=== PATIENT | female | born 1945 | race Caucasian/White ===

== ENCOUNTER 2017-03-12 06:07 | Day surgery (SDC) | payer MEDICARE, OTHER ==
[2017-03-12] MEDS ORDERED: CYCLOPENTOLATE 1% OPHTH DROPS 2 ML OPTH ONE (06:40)
[2017-03-12] MEDS ORDERED: TROPICAMIDE 1% OPHTH 2 ML DROPS OPTH ONE (06:40)
[2017-03-12] MEDS ORDERED: KETOROLAC 0.45% OPHTH DROPS OPTH ONE (06:40)
[2017-03-12] MEDS ORDERED: LACTATED RINGERS 500 ML IV ONE (06:50)
[2017-03-12] MEDS ORDERED: PROPARACAINE 0.5% OPHTH DROPS 15 ML OPTH ONE (07:33)
[2017-03-12] MEDS ORDERED: EPINEPHrine 1 MG/ML AMP IO ONE (07:50)
[2017-03-12] MEDS ORDERED: MIDAZOLAM 2 MG/2 ML VIAL IVP ONE (07:50)
[2017-03-12] MEDS ORDERED: BRIMONIDINE 0.2% OPHTH DROPS 5 ML OPTH ONE (07:51)
[2017-03-12] MEDS ORDERED: BSS/LIDOCAINE/EPINEPHRINE 1 ML SYRINGE IO ONE ×2 (07:51)
[2017-03-12] MEDS ORDERED: CHONDR SULF/HYALURONATE SYRINGE IO ONE (07:52)
[2017-03-12] MEDS ORDERED: levoFLOXacin 0.5% OPHTH DROPS 5 ML OPTH ONE (07:52)
[2017-03-12] MEDS ORDERED: TETRACAINE 0.5% OPHTH DROPS 4 ML RIGHTEYE ONE (07:52)
[2017-03-12] MEDS ORDERED: NEOMYCIN/POLYMYX/DEXAMETH OPHTH OINT OPTH ONE (07:52)
== END 2017-03-12 06:08 | disposition home or self-care (01) ==
PROC: 08RJ3JZ Replacement of Right Lens with Synthetic Substitute, Percutaneous Approach (ICD-10-PCS; principal; 2017-03-12 07:30)
DX: H26.9 Unspecified cataract (principal); G47.33 Obstructive sleep apnea (adult) (pediatric); J45.909 Unspecified asthma, uncomplicated; E78.00 Pure hypercholesterolemia, unspecified; I10 Essential (primary) hypertension
CPT/HCPCS: 66984; V2632; V2787

== ENCOUNTER 2017-04-02 06:07 | Day surgery (SDC) | payer MEDICARE, OTHER ==
[2017-04-02] MEDS ORDERED: LACTATED RINGERS 500 ML IV ONE (06:33)
[2017-04-02] MEDS ORDERED: TROPICAMIDE 1% OPHTH 2 ML DROPS OPTH ONE (06:45)
[2017-04-02] MEDS ORDERED: KETOROLAC 0.45% OPHTH DROPS OPTH ONE (06:45)
[2017-04-02] MEDS ORDERED: CYCLOPENTOLATE 1% OPHTH DROPS 2 ML OPTH ONE (06:45)
[2017-04-02] MEDS ORDERED: PROPARACAINE 0.5% OPHTH DROPS 15 ML OPTH ONE (07:52)
[2017-04-02] MEDS ORDERED: BRIMONIDINE 0.2% OPHTH DROPS 5 ML OPTH ONE (07:53)
[2017-04-02] MEDS ORDERED: EPINEPHrine 1 MG/ML AMP IO ONE (07:53)
[2017-04-02] MEDS ORDERED: levoFLOXacin 0.5% OPHTH DROPS 5 ML OPTH ONE (07:53)
[2017-04-02] MEDS ORDERED: NEOMYCIN/POLYMYX/DEXAMETH OPHTH OINT OPTH ONE (07:53)
[2017-04-02] MEDS ORDERED: CHONDR SULF/HYALURONATE SYRINGE IO ONE (07:53)
[2017-04-02] MEDS ORDERED: BSS/LIDOCAINE/EPINEPHRINE 1 ML SYRINGE IO ONE ×2 (07:53)
[2017-04-02] MEDS ORDERED: MIDAZOLAM 2 MG/2 ML VIAL IVP ONE (07:55)
[2017-04-02 08:45] VITALS: BP 133/67
--- NOTE | 2017-04-03 03:17 | OPERATIVE REPORT ---
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 SURGICAL PROCEDURE: Phacoemulsification cataract extraction with intraocular lens implant of the right eye. SURGEON: Dg Lawson MD ANESTHESIA: Topical 0.5% tetracaine with monitored sedation and intracameral Shugarcaine given at the beginning of the surgical procedure. COMPLICATIONS: None. DESCRIPTION OF SURGICAL PROCEDURE: The patient was brought into the operating room and the eye was anesthetized. The patient sat up in the gurney and an axis marker was used to identify the axis of orientation of the toric lens. The patient was prepped and draped in the usual ophthalmic manner. Adhesive plastic drape was placed over the eye, a slit was made in the drape and a lid speculum was used to hold the eyelids and expose the eye. A marking pen was then used to identify the indentations to further identify the axis of orientation from the corneal marker and then a 15-degree blade was used to make a self-sealing stab wound 2 o'clock hours to the left of the planned clear corneal incision. Shugarcaine was then placed into the anterior chamber to further dilate the pupil and the eye was then filled with viscoelastic the crescent blade was used to make the initial vertical component of the self-sealing clear corneal incision. The wound was completed with a 2.75 keratome. A circular tear capsulorrhexis was performed. The nucleus was hydrodissected and phacoemulsification of the cataract was performed with no complications. I/A unit was used to clean up the cortical material. The posterior capsule was polished crystal clear with the Tristian capsule polisher. Again, the I/A unit was used to remove any loose particulate matter after polishing the capsule. The patient then had viscoelastic into the capsular bag. The toric lens was inserted in the capsular bag, but left shy of correct orientation to be rotated in a clockwise manner. Viscoelastic was then removed from the eye and the toric lens was nudged into perfect position with the axis of orientation. BSS was then used to fill the anterior chamber. The wounds were examined and found to be self-sealing and water tight. The lid speculum was removed. A drop of bromonidine was placed on the eye, Maxitrol ointment was placed on the eye,the eye was patched and shielded and the patient was taken into the recovery room in good condition. JOB #: [id number] EXT JOB #:[id number] MTDD
== END 2017-04-02 06:08 | disposition home or self-care (01) ==
LOC: SDS 06:07
PROVIDERS: ATTEND Specialist
PROC: 08RK3JZ Replacement of Left Lens with Synthetic Substitute, Percutaneous Approach (ICD-10-PCS; principal; 2017-04-02 07:30)
DX: H25.12 Age-related nuclear cataract, left eye (principal); I10 Essential (primary) hypertension; J45.909 Unspecified asthma, uncomplicated; G47.33 Obstructive sleep apnea (adult) (pediatric); H18.51 Endothelial corneal dystrophy; Z87.891 Personal history of nicotine dependence
CPT/HCPCS: 66984; V2632; V2787

== ENCOUNTER 2017-07-18 11:47 | Outpatient (CLI) | payer MEDICARE, OTHER ==
--- NOTE | 2017-07-18 13:27 | XRAY Report ---
TWO-VIEW CHEST: 07/18/2017 CLINICAL INDICATION: Anterior chest pain. COMPARISON: 05/10/2014 FINDINGS: Frontal and lateral views of the chest demonstrate a normal cardiac silhouette. The lungs are clear. No effusion or pneumothorax is present. No sternal fracture is seen on the lateral view . IMPRESSION: NORMAL CHEST, UNCHANGED. JOB #: [id number] EXT JOB #:[id number]
== END 2017-07-18 11:48 | disposition home or self-care (01) ==
LOC: DI.N 11:47
PROVIDERS: ATTEND Physician Assistant
DX: R07.89 Other chest pain (principal)
CPT/HCPCS: 71020

== ENCOUNTER 2017-08-04 10:03 | Emergency (ER) | payer MEDICARE, OTHER ==
[2017-08-04] MEDS ORDERED: MUPIROCIN 2% OINT 1 GM TOP STA (13:13)
--- NOTE | 2017-08-04 13:13 | ED Physician Documentation ---
PD HPI WOUND RECHECK - Stated complaint Stated Complaint: POST OP WOUND CHECK - Chief complaint Chief Complaint: Wound - Histroy obtained from History obtained from: Patient - History of Present Illness Location: Abdomen Timing - onset: How many days ago (few) Associated symptoms: Redness, Drainage (she had pain pump placed at and is doing okay except for 1-2 days of mild redness and drainage superficially at lower abd site. No pain nor redness in area of the pump itself.) Similar symptoms before: Has not had sx before Recently seen: Surgery (outpt surgery of placement pain med pump) Review of Systems Constitutional: denies: Fever, Chills GI: denies: Nausea, Vomiting, Diarrhea PD PAST MEDICAL HISTORY - Past Medical History Past Medical History: Yes Cardiovascular: Hypertension, High cholesterol, Other Respiratory: Asthma, Sleep apnea, CPAP use Endocrine/Autoimmune: HyPOthyroidism GI: Pancreatitis : Kidney stones HEENT: Other Psych: None Musculoskeletal: Osteoarthritis, Other Derm: None - Past Surgical History Past Surgical History: Yes 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, 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, 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, Breast reduction - Present Medications Home Medications: Ambulatory Orders Medication Instructions Recorded Confirmed Atenolol 75 mg PO DAILY 06/28/13 08/04/17 Atorvastatin Calcium [Lipitor] 40 mg PO HS 06/28/13 08/04/17 Fluticasone [Flonase] 1 sprays TRAVIS BID 06/28/13 08/04/17 Furosemide [Lasix] 20 mg PO BID 06/28/13 08/04/17 Lansoprazole [Prevacid] 30 mg PO BID 06/28/13 08/04/17 Lipase/Protease/Amylase [Zenpep Dr 4 tab PO AC 06/28/13 08/04/17 10,000 Units Capsule] Mometasone 220 Mcg [Asmanex 220 220 mcg IH BID 06/28/13 08/04/17 Mcg] Montelukast [Singulair] 10 mg PO QPM 06/28/13 08/04/17 Ondansetron [Ondansetron Odt] 4 mg PO HS 06/28/13 08/04/17 Oxycodone HCl/Acetaminophen 0.5 each PO Q4H PRN 06/28/13 08/04/17 [Percocet 5-325 mg Tablet] Salmeterol [Serevent] 1 puffs INH BID 06/28/13 08/04/17 Spironolactone 50 mg PO DAILY 06/28/13 08/04/17 Levothyroxine [Synthroid] 112 mcg PO DAILY 04/03/15 08/04/17 Cetirizine [ZyrTEC] 10 mg PO DAILY 08/04/17 08/04/17 Doxycycline Hyclate 100 mg PO BID #14 tablet 08/04/17 Mupirocin 1 applic TP TID #15 oint...g. 08/04/17 - Allergies Allergies/Adverse Reactions: Allergies Allergy/AdvReac Type Severity Reaction Status Date / Time desipramine Allergy fuzzy head Verified 08/04/17 13:00 levofloxacin [From Levaquin] Allergy Rash Verified 08/04/17 13:00 lisinopril [From Zestril] Allergy unknown Verified 08/04/17 13:00 nortriptyline [Nortriptyline] Allergy fuzzy head Verified 08/04/17 13:00 tramadol HCl * [From Ultram] Allergy fuzzy head Verified 08/04/17 13:00 tape adhesive Allergy Itching Uncoded 08/04/17 13:00 - Social History Does the pt smoke?: No Smoking Status: Never smoker Does the pt drink ETOH?: Yes Does the pt have substance abuse?: No - Immunizations Immunizations are current?: Yes PD ED PE NORMAL - Vitals Vital signs reviewed: Yes - General General: Alert and oriented X 3, No acute distress, Well developed/nourished - Abdomen Abdomen: Normal bowel sounds, Soft, Non distended, Other (lower abd with surgical wound closed except for about 1 cm area of partial thickness dehiscence and mild redness with clear to white superficial exudate. No underlying induration, tenderness nor fullness. The pump itself is lateral to that wound and there is not any redness nor tenderness overlying the pump pouch area. ) - Derm Derm: Normal color, Warm and dry Results - Vitals Vitals: Oxygen O2 Source Room air PD MEDICAL DECISION MAKING - ED course Complexity details: considered differential (just superficial dehiscence and mild redness. No underlying tenderness nor fullness. ), d/w patient Departure - Departure Disposition: 01 Home, Self Care Clinical Impression: Superficial postoperative wound infection Qualifiers: Encounter type: initial encounter Qualified Code(s): T81.4XXA - Infection following a procedure, initial encounter Condition: Stable Record reviewed to determine appropriate education?: Yes Instructions: ED Staph Infec Abx Tx Only Follow-Up: Rm Ochoa MD [Primary Care Provider] - Prescriptions: Doxycycline Hyclate 100 mg PO BID #14 tablet Mupirocin 1 applic TP TID #15 oint...g. Comments: Cleanse the wound 2-3 times a day and apply mupirocin antibiotic ointment. Most wound infections like this are caused by staff aureus and so we will change antibiotic to doxycycline to target that better. Recheck if not better over the next 3-5 days and sooner if worsens. Discharge Date/Time: 08/04/17 13:35
[2017-08-04 13:23] VITALS: BP 147/72
[2017-08-04] MEDS ORDERED: MUPIROCIN 2% OINT 1 GM ONE (13:23)
== END 2017-08-04 13:35 | disposition home or self-care (01) ==
LOC: ED 10:03
DX: T81.4XXA Infection following a procedure, initial encounter (principal); T81.31XA Disruption of external operation (surgical) wound, not elsewhere classified, initial encounter; I10 Essential (primary) hypertension; E03.9 Hypothyroidism, unspecified
CPT/HCPCS: 99283; A9270

== ENCOUNTER 2017-10-20 10:07 | Outpatient (CLI) | payer MEDICARE, OTHER ==
--- NOTE | 2017-10-21 11:37 | XRAY Report ---
RIGHT HAND: 10/20/2017 HISTORY: Pain. COMPARISON: 06/13/2015 Advanced degenerative change at the index DIP joint is similar to previous with narrowing, subchondral sclerosis and spurring. There is slight radial subluxation of the distal phalanx. Lesser degrees of degenerative change are seen at the other interphalangeal joints of the fingers and thumb as well as at the first metacarpocarpal articulation. These other degenerative changes appear to have progressed since 2014, particularly at the first metacarpocarpal articulation. IMPRESSION: DEGENERATIVE CHANGE RIGHT HAND, MOST MARKED INDEX DIP JOINT AND FIRST METACARPALCARPAL ARTICULATION WITHOUT SUPERIMPOSED ACUTE FINDINGS. JOB #: [id number] EXT JOB #: [id number] [facility]efer[facility]
== END 2017-10-20 10:08 | disposition home or self-care (01) ==
LOC: DI.N 10:07
PROVIDERS: ATTEND Physician Assistant
DX: M18.11 Unilateral primary osteoarthritis of first carpometacarpal joint, right hand (principal); M19.041 Primary osteoarthritis, right hand

== ENCOUNTER 2017-11-18 14:43 | Outpatient (CLI) | payer MEDICARE, OTHER | END 2017-11-18 14:44 | disposition home or self-care (01) | LOC: SC 14:43 | PROVIDERS: ATTEND Nurse Practitioner Family | DX: G47.33 Obstructive sleep apnea (adult) (pediatric) (principal) | CPT/HCPCS: 99214; G0463; 99212 ==

== ENCOUNTER 2018-03-26 09:58 | Outpatient (CLI) | payer MEDICARE, OTHER ==
--- NOTE | 2018-03-29 18:07 | DEXA Report ---
DEXA SCAN: 03/26/2018 INDICATION: Bone mineral density screening. TECHNIQUE: Dual energy x-ray absorptiometry (DXA) was performed on a [employer] system. Regions measured are the AP spine, femoral neck, and, if needed, forearm. COMPARISON: None. In accordance with the International Society for Clinical Densitometry (ISCD) guidelines, data from previous exams may be reanalyzed using current recommendations and techniques. This is done to allow a more accurate basis for comparison with the current study. FINDINGS The data for the lumbar spine is as follows: REGION BMD (g/cm/cm) T-SCORE Z-SCORE L1 1.146 0.1 1.6 L2 1.256 0.5 2.0 L3 1.309 0.9 2.4 L4 1.254 0.4 2.0 L1-L4 1.246 0.5 2.1 L2-L4 1.275 0.6 2.1 NOTE: All evaluable vertebrae are used for classification. The data for the hip is as follows: REGION BMD (g/cm/cm) T-SCORE Z-SCORE Neck 1.006 -0.2 1.4 TOTAL 1.058 0.4 1.8 NOTE: The femoral neck or total proximal femur, whichever is lowest, is used for classification. Spine bone mineral density 1.246 grams/cm2. T-score 0.5. Z-score 2.1. WHO classification normal. Femoral neck bone mineral density 1.006 grams/cm2. T score -0.2. Z-score 1.4. WHO classification normal. IMPRESSION WHO CLASSIFICATION BASED ON THE INTERNATIONAL REFERENCE STANDARD IS NORMAL. FRACTURE RISK IS NOT INCREASED. RECOMMENDATION: Patients with diagnosis of osteoporosis or osteopenia should have regular bone mineral density assessment. For those eligible for Medicare, routine testing is allowed once every 2 years. Testing frequency can be increased for patients who have rapidly progressing disease or for those who are receiving medical therapy to restore bone mass. COMMENT World Health Organization (WHO) definitions for osteoporosis and osteopenia: NORMAL BMD: T-score at 1.0 or higher, fracture risk is low. OSTEOPENIA BMD: T-score between 1.0 and -2.5, fracture risk is increased. OSTEOPOROSIS BMD: T-score at 2.5 or lower, fracture risk high. National Osteoporosis Foundation recommends: 1. Obtain adequate dietary calcium (at least 1200 mg per day) and vitamin D (400 -800 international units per day). 2. Participate, as appropriate, in regular weightbearing and muscle- strengthening exercise. 3. Avoid tobacco use and reduce alcohol and caffeine intake. 4. For more detailed information see the website at www.NOF.org. TD: 03/26/2018 11:01 MTDD
== END 2018-03-26 09:59 | disposition home or self-care (01) ==
LOC: DI 09:58
PROVIDERS: ATTEND Physician Assistant
DX: Z13.820 Encounter for screening for osteoporosis (principal); N95.9 Unspecified menopausal and perimenopausal disorder
CPT/HCPCS: 77080

== ENCOUNTER 2018-04-08 10:34 | Outpatient (CLI) | payer MEDICARE, OTHER ==
--- NOTE | 2018-04-08 12:48 | XRAY Report ---
THREE VIEW RIGHT HAND: 04/08/2018 CLINICAL INDICATION: Fall, pain. FINDINGS: AP, lateral, oblique views of the right hand are compared to previous films of 10/20/2017. Osteoarthritic changes appear stable. There is no evidence of acute fracture or dislocation. No radiopaque foreign body is seen in the soft tissues. IMPRESSION: OSTEOARTHRITIS. NO EVIDENCE OF ACUTE FRACTURE. TD: 04/08/2018 12:32
== END 2018-04-08 10:35 | disposition home or self-care (01) ==
LOC: DI.N 10:34
PROVIDERS: ATTEND Physician Assistant
DX: M79.641 Pain in right hand (principal); M19.041 Primary osteoarthritis, right hand

== ENCOUNTER 2018-06-10 10:13 | Emergency (ER) | payer MEDICARE, OTHER ==
[2018-06-10 10:25] VITALS: BP 159/67
--- NOTE | 2018-06-10 11:47 | ED Physician Documentation ---
History of Present Illness - Stated complaint Stated Complaint: SPIDER BITE/LEFT LEG PX - Chief complaint Chief Complaint: Ext Problem - Additonal information Additional information: hx from pt yesterday while sitting in her room reading felt something bite her L calf then developed rendess to left then right leg both sharply demarcated was warm but not now bite source not identified otherwsie wll no lotion sun etc exposure Review of Systems Constitutional: denies: Fever Respiratory: denies: Dyspnea Skin: reports: Rash PD PAST MEDICAL HISTORY - Past Medical History Past Medical History: Yes Cardiovascular: Hypertension, High cholesterol, Other Respiratory: Asthma, Sleep apnea, CPAP use Endocrine/Autoimmune: HyPOthyroidism GI: Pancreatitis : Kidney stones HEENT: Other Psych: None Musculoskeletal: Osteoarthritis, Other Derm: None - Past Surgical History Past Surgical History: Yes 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, 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, 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, Breast reduction - Present Medications Home Medications: Ambulatory Orders Medication Instructions Recorded Confirmed Atenolol 75 mg PO DAILY 06/28/13 08/04/17 Atorvastatin Calcium [Lipitor] 40 mg PO HS 06/28/13 08/04/17 Fluticasone [Flonase] 1 sprays TRAVIS BID 06/28/13 08/04/17 Furosemide [Lasix] 20 mg PO BID 06/28/13 08/04/17 Lansoprazole [Prevacid] 30 mg PO BID 06/28/13 08/04/17 Lipase/Protease/Amylase [Zenpep Dr 4 tab PO AC 06/28/13 08/04/17 10,000 Units Capsule] Mometasone 220 Mcg [Asmanex 220 220 mcg IH BID 06/28/13 08/04/17 Mcg] Montelukast [Singulair] 10 mg PO QPM 06/28/13 08/04/17 Ondansetron [Ondansetron Odt] 4 mg PO HS 06/28/13 08/04/17 Oxycodone HCl/Acetaminophen 0.5 each PO Q4H PRN 06/28/13 08/04/17 [Percocet 5-325 mg Tablet] Salmeterol [Serevent] 1 puffs INH BID 06/28/13 08/04/17 Spironolactone 50 mg PO DAILY 06/28/13 08/04/17 Levothyroxine [Synthroid] 112 mcg PO DAILY 04/03/15 08/04/17 Cetirizine [ZyrTEC] 10 mg PO DAILY 08/04/17 08/04/17 Doxycycline Hyclate 100 mg PO BID #14 tablet 08/04/17 Mupirocin 1 applic TP TID #15 oint...g. 08/04/17 - Allergies Allergies/Adverse Reactions: Allergies Allergy/AdvReac Type Severity Reaction Status Date / Time desipramine Allergy fuzzy head Verified 06/10/18 10:28 levofloxacin [From Levaquin] Allergy Rash Verified 06/10/18 10:28 lisinopril [From Zestril] Allergy unknown Verified 06/10/18 10:28 nortriptyline [Nortriptyline] Allergy fuzzy head Verified 06/10/18 10:28 tramadol HCl * [From Ultram] Allergy fuzzy head Verified 06/10/18 10:28 tape adhesive Allergy Itching Uncoded 06/10/18 10:28 - Social History Does the pt smoke?: No Smoking Status: Never smoker Does the pt drink ETOH?: Yes Does the pt have substance abuse?: No - Immunizations Immunizations are current?: Yes PD ED PE NORMAL - Vitals Vital signs reviewed: Yes - Cardiac Cardiac: RRR - Respiratory Respiratory: No respiratory distress, Clear bilaterally - Extremities Extremities: Other (kendra lower ext with sharply demarcated pale pink erythema from upper sins to ankles, small red papule where pt felt the bite, no streaking , no bullae, no necrosis, no crepitus) Results - Vitals Vitals: Vital Signs - 24 hr 06/10/18 06/10/18 10:22 10:25 Temperature 37.2 C 37.2 C Heart Rate 75 75 Respiratory 18 18 Rate Blood Pressure 159/67 H 159/67 H O2 Saturation 100 100 Oxygen O2 Source Room air PD MEDICAL DECISION MAKING - ED course ED course: seems more allergic than infectious - Sepsis Event Vital Signs: Vital Signs - 24 hr 06/10/18 06/10/18 10:22 10:25 Temperature 37.2 C 37.2 C Heart Rate 75 75 Respiratory 18 18 Rate Blood Pressure 159/67 H 159/67 H O2 Saturation 100 100 Oxygen O2 Source Room air Departure - Departure Disposition: 01 Home, Self Care Clinical Impression: Rash Condition: Good Instructions: ED Dermatitis Non Specific Rash Comments: No more steroids should be needed Take claritin 10 mg every day until resolved Follow up PMD if not better Return to the ER if worse
[2018-06-10] MEDS ORDERED: LORATADINE 10 MG TABLET PO STA (11:50)
[2018-06-10] MEDS ORDERED: DEXAMETHASONE 10 MG/ML VIAL PO STA (11:50)
[2018-06-10] MEDS ORDERED: CHERRY SYRUP 10 ML UDC PO ONE (12:08)
== END 2018-06-10 12:04 | disposition home or self-care (01) ==
LOC: ED 10:13
DX: R21 Rash and other nonspecific skin eruption (principal); I10 Essential (primary) hypertension
CPT/HCPCS: 99282; 99283; A9270

== ENCOUNTER 2018-12-09 11:11 | Outpatient (CLI) | payer MEDICARE, OTHER | END 2018-12-09 11:12 | disposition home or self-care (01) | LOC: SC 11:11 | PROVIDERS: ATTEND Nurse Practitioner Family | DX: G47.33 Obstructive sleep apnea (adult) (pediatric) (principal) | CPT/HCPCS: 99213; G0463; 99212 ==

== ENCOUNTER 2019-04-09 16:46 | Outpatient (CLI) | payer MEDICARE, OTHER ==
--- NOTE | 2019-04-10 21:53 | XRAY Report ---
Reason: L KNEE PAIN KNEE EFFUSION Procedure Date: 04/09/2019 Accession Number: [id number] / [id number] Procedure: XR - Knee 2 View LT CPT Code: FULL RESULT: EXAM: LEFT KNEE RADIOGRAPHY EXAM DATE: 04/09/2019 04:49 PM. CLINICAL HISTORY: L KNEE PAIN KNEE EFFUSION. COMPARISON: XR KNEE 3 VIEW 07/21/2012 11:23 AM. TECHNIQUE: 2 views. FINDINGS: Bones: No acute fractures or suspicious bone lesions. Joints: Small tricompartmental osteophytes. Progressed patellofemoral osteoarthritis with further joint space narrowing, sclerosis, and subcortical cyst formation. Small effusion. Soft Tissues: Unremarkable. IMPRESSION: Progressed patellofemoral osteoarthritis, not well evaluated on the lateral view. Consider additional sunrise view. Small effusion. RADIA
== END 2019-04-09 16:47 | disposition home or self-care (01) ==
LOC: DI 16:46
PROVIDERS: ATTEND Physician Assistant Medical
DX: M17.12 Unilateral primary osteoarthritis, left knee (principal); M25.462 Effusion, left knee

== ENCOUNTER 2019-09-03 15:42 | Outpatient (CLI) | payer MEDICARE, OTHER ==
--- NOTE | 2019-09-05 04:47 | XRAY Report ---
Reason: UNILATERAL PRIMARY OSTEOARTHRITIS, LEFT KNEE Procedure Date: 09/03/2019 Accession Number: [id number] / [id number] Procedure: XR - Knee 3 View LT CPT Code: FULL RESULT: EXAM: LEFT KNEE RADIOGRAPHY EXAM DATE: 09/03/2019 03:54 PM. CLINICAL HISTORY: UNILATERAL PRIMARY OSTEOARTHRITIS, LEFT KNEE. COMPARISON: KNEE 2 VIEW LT 04/09/2019 4:49 PM. TECHNIQUE: 3 views. FINDINGS: Bones: Subchondral sclerosis and marginal osteophyte formation at the patellofemoral and tibiofemoral compartments. Joints: Lateral of the patella. Cartilage loss with joint space narrowing in the medial compartment and patellofemoral compartment. Small suprapatellar joint effusion. Soft Tissues: Normal. No soft tissue swelling. IMPRESSION: Tricompartmental osteoarthritis. Kellgren Conor Grade 3. Kellgren and Cnoor classification of osteoarthritis: Grade 0: no radiographic features of osteoarthritis are present Grade 1: doubtful joint space narrowing (JSN) and possible osteophytic lipping Grade 2: definite osteophytes and possible JSN on anteroposterior weight-bearing radiograph Grade 3: multiple osteophytes, definite JSN, sclerosis, possible bony deformity Grade 4: large osteophytes, marked JSN, severe sclerosis and definite bony deformity RADIA
== END 2019-09-03 15:43 | disposition home or self-care (01) ==
LOC: DI 15:42
PROVIDERS: ATTEND Family Medicine
DX: M17.12 Unilateral primary osteoarthritis, left knee (principal)

== ENCOUNTER 2019-11-24 09:48 | Outpatient (CLI) | payer MEDICARE, OTHER ==
--- NOTE | 2019-11-25 08:38 | DEXA Report ---
Reason: POST MENOPAUSAL Procedure Date: 11/24/2019 Accession Number: [id number] / [id number] Procedure: DEX - Dexa Spine and/or Hip CPT Code: Final Report FULL RESULT: EXAM: Dexa Spine and/or Hip DATE: 11/24/2019 10:10 AM CLINICAL HISTORY: POST MENOPAUSAL TECHNIQUE: Dual energy x-ray absorptiometry (DXA) was performed on a [employer] System. Regions measured are the AP Spine, femoral neck, and if needed forearm. COMPARISON: 03/26/2018. In accordance with the International Society for Clinical Densitometry (ISCD) guidelines, data from previous exams may be reanalyzed using current recommendations and techniques. This is done to allow a more accurate basis for comparison with the current study. FINDINGS: The data for the lumbar spine is as follows: BMD (g/cm/cm) T-SCORE Z-SCORE REGION L1 1.074 -0.5 1.1 L2 1.183 -0.1 1.4 L3 1.296 0.8 2.3 L4 1.157 -0.4 1.2 TOTAL 1.175 0.0 1.5 NOTE: All evaluable vertebrae are used for classification The data for the hip is as follows: BMD (g/cm/cm) T-SCORE Z-SCORE REGION Neck 1.051 0.1 1.8 TOTAL 1.071 0.5 2.0 NOTE: The femoral neck or total proximal femur, whichever is lowest, is used for classification. DXA RESULTS SUMMARY: Spine SCAN DATE AGE BMD CHANGE VS CHANGE VS PREVIOUS PREVIOUS % [birth year][age]24/2019 [age] 1.175 -0.071* -5.7* 03/26/2018 72.7 1.246 * Denotes significant change at the 95% confidence level. Denotes dissimilar scan types or analysis methods. DXA RESULTS SUMMARY: Hip SCAN DATE [age]GE BMD CHANGE VS CHANGE VS PREVIOUS PREVIOUS % [birth year]/2019 74.4 1.071 0.013 1.2 03/26/2018 72.7 1.058 * Denotes significant change at the 95% confidence level. Denotes dissimilar scan types or analysis methods. IMPRESSION: THE WHO CLASSIFICATION BASED ON THE INTERNATIONAL REFERENCE STANDARD IS NORMAL. THE FRACTURE RISK IS NOT INCREASED. RECOMMENDATION: Patients with diagnosis of osteoporosis or osteopenia should have regular bone mineral density assessment. For those eligible for Medicare, routine testing is allowed once every 2 years. Testing frequency can be increased for patients who have rapidly progressing disease or for those who are receiving medical therapy to restore bone mass. COMMENT: World Health Organization (WHO) definitions for osteoporosis and osteopenia: NORMAL BMD: T-score at -1.0 or higher, fracture risk is low OSTEOPENIA BMD: T-score between -1.0 and -2.5, fracture risk is increased. OSTEOPOROSIS BMD: T-score at -2.5 or lower, fracture risk is high. National Osteoporosis Foundation recommends: 1. Obtain adequate dietary calcium (at least 1200 mg per day) and vitamin D (400-800 international units per day). 2. Participate, as appropriate, in regular weightbearing and muscle-strengthening exercise. 3. Avoid tobacco use and reduce alcohol and caffeine intake. 4. For more detailed information see the website at www.NOF.org.
== END 2019-11-24 09:49 | disposition home or self-care (01) ==
LOC: DI 09:48
PROVIDERS: ATTEND Physician Assistant Medical
DX: Z13.820 Encounter for screening for osteoporosis (principal); Z78.0 Asymptomatic menopausal state
CPT/HCPCS: 77080

== ENCOUNTER 2020-01-12 13:14 | Outpatient (CLI) | payer MEDICARE, OTHER ==
[2020-01-12 14:18] VITALS: BP 130/60
--- NOTE | 2020-01-12 14:18 | SLEEP CARE CONSULTATION ---
Information from patient questionnaire entered by Rosalia Martini. I have reviewed and concur with the information entered by Rosalia Martini. This document represents the service I personally performed and the decisions made by me, Ghada Balderas, RN, MSN, FOOD AND NUTRITION SERVICES SUPERVISOR. History of Present Illness Previous diagnosis: Severe, Obstructive Sleep Apnea-Hypopnea Syndrome AHI: 51.3 Reason for follow up: annual (last seen 2018) Equipment type: CPAP Equipment obtained from: [place] Mask style: Nasal Mask brand: [employer] Backup mask available: Yes (old mask ) Last cushion change: 2weeks ago / headgear change 12/19/19 CPAP Compliance Data - Data Reviewed with Patient Average duration of nightly device use: 7.4 Compliance rate %: 99.4 (180 days) Current pressure setting (cmH2O): 11 Humidity settin Heated hose settin Average residual AHI: 1.9 Average large leak: 45 min 56 sec Subjective Patient concerns: reports: nasal congestion (chronic ). denies: aerophagia, mask discomfort, air blowing in eyes, mask leak noise, condensation in mask/hose, dry mouth, nose, throat, epistaxis Observed to snore while using device: No Current pressure setting perceived as: comfortable On therapy, patient: reports: sleeping better, awakening more refreshed, being more awake and alert during the day, more rested overall. denies: drowsiness while driving Initial [place] Sleepiness Scale score: 12 Current [place] Sleepiness Scale score: 4 Allergies and Home Medications Known drug allergies: Yes Home medication list reviewed: Yes (see changes ) Allergy and home medication list: Medication Name (generic/name brand) Strength & Dosage Lipitor (Atorvastatin) 40mg tab one daily Creon (Pancrelipase)55,000-10,000-34,000 U Cap 4 three times daily Spironolactone 25mg tab daily Atenolol 75mg daily ( a 50mg plus 25mg tablet) Synthroid (Levothyroxine) 112mcg tab one daily Lasix (Furosemide) 20mg tab one twice daily Singulair (Montelukast) 10mg tab one daily Serevent Diskus 50mcg powder One inhalation twice daily Asmanex Twisthaler 60 dose 220mcg/inh One inhalation twice daily Ondansetron Hydrochloride 4mg tab two daily before dinner Percocet (Acetaminophen-Oxycodone) 325-5mg tab - 2 q4-6hr breakthrough pain Gabapentin 100g tab two daily at bedtime Albuterol Sulfate 90 mcg/inh aerosol Two puff q4-6hr as needed Fluticasone Propionate 0.05mg/inh two puffs twice daily Prilosec 30mg cap one twice daily Pump infusion for pain (intrathecal ) As directed. ( 3.299mg dilaudid per day) Zyrtec 10mg daily Allergy List Codeine Sulfate GI Upset Ultram (Tramadol) Nortriptyline Hydrochloride Lisinopril Desipramine Review of Systems Review of systems same as previous: No (colonscopy for positive occult stool test ) Physical Exam Blood Pressure: 130/60 Cuff size: regular Heart Rate: 64 O2 Saturation: 98 Height: 5 ft 3 in Weight: 151 lb Weight change since last visit: lost 5 pounds Body Mass Index: 26.7 BMI Classification: Overweight Impression and Plan 1. Obstructive Sleep Apnea-Hypopnea Syndrome, severe, with good treatment compliance and good apnea control. On CPAP therapy, the patient has better sleep quality and is more rested overall. She has noted increased mask leaks despite changing cushion every 2 weeks and updating headgear and adjusting. She also cleans equipment daily. She has used a chinstrap in past but is not waking to dry mouth. However, I will have her try the chinstrap again to see if that is the cause. Otherwise, she can try a new mask. Since she just received a new headgear, she is advised to see if she can exchange for a new mask. I will also write an order for mask refitting. Nasal congestion can be reduced with increasing the CPAP humidity as shown on sample device. The heated hose can be adjusted higher if condensation with higher humidity setting. Saline nasal spray is to be used prior to CPAP to clear nasal secretions and wash off any nasal allergens to facilitate nasal breathing as well as before her Flonase to improve medication adherence. In addition, She is to increase Flonase nasal spray from one spray daily each nostril to twice a day. She can also use her [place] pot sinus flush as needed. I also discussed how a steamy shower before bed will often assist nasal drainage. Printed instructions given on how to change humidity and heated hose settings with rationale explaining why to change. Patient's apnea severity and rationale for treatment to reduce apnea, improve sleep quality and reduce cardiovascular and cerebrovascular events was reviewed. I also reviewed the benefit of consistent device use of CPAP for hypertension, gastric reflux, . Continue CPAP pressure at 11 cmH2O * Chin strap * mask refitting. * Implement methods to reduce nasal congestion * Notify me if snoring with mask or feeling that the pressure is too much or too little * Call this office if any problems using CPAP * Return for follow up in 1 year , or sooner if concerns arise Time Spent with Patient (minutes): 33 I spent 100% of this visit face to face with the patient with greater than 50% of this was spent time counseling the patient and coordination of care.
== END 2020-01-12 13:15 | disposition home or self-care (01) ==
LOC: SC 13:14
PROVIDERS: ATTEND Nurse Practitioner Family
DX: G47.33 Obstructive sleep apnea (adult) (pediatric) (principal); E66.3 Overweight; Z68.26 Body mass index [BMI] 26.0-26.9, adult
CPT/HCPCS: 99214; G0463; 99212

== ENCOUNTER 2020-07-13 10:04 | Outpatient (CLI) | payer MEDICARE, OTHER ==
--- NOTE | 2020-07-20 12:19 | Mammography Report ---
BILATERAL DIGITAL SCREENING MAMMOGRAM 3D/2D: 07/13/2020 CLINICAL: Routine screening. No prior exams were available for comparison. The tissue of both breasts is predominantly fatty. There is possible low density architectural distortion in the left breast at 11 o'clock posterior dep th. No other significant masses, calcifications, or other findings are seen in either breast. IMPRESSION: INCOMPLETE: NEEDS ADDITIONAL IMAGING EVALUATION The possible low density architectural distortion in the left breast is indeterminate. Additional vi ews with possible ultrasound are recommended. This exam was interpreted at Station ID: [id number]. NOTE: For mammograms, a report in lay terms will be sent to the patient. Approximately 15% of breast malignancies will not be visualized mammographically. In the management of a palpable breast mass, a negative mammogram must not discourage biopsy of a clinically suspicious lesion. Electronically Signed By: Walker horton/irina:07/20/2020 08:18:12 ACR BI-RADS Category 0: Incomplete 3340F PARENCHYMAL PATTERN: (F) - The breast(s) demonstrate(s) diffuse fatty replacement. BI-RADS CATEGORY: (0) - 0 Mammo and [place] [id number] Immediate follow-up LATERALITY: (L)
== END 2020-07-13 10:05 | disposition home or self-care (01) ==
LOC: DI.N 10:04
DX: Z12.31 Encounter for screening mammogram for malignant neoplasm of breast (principal); R92.8 Other abnormal and inconclusive findings on diagnostic imaging of breast
CPT/HCPCS: 77063; 77067

== ENCOUNTER 2020-09-20 10:09 | Outpatient (CLI) | payer MEDICARE, OTHER ==
--- NOTE | 2020-09-21 14:42 | Mammography Report ---
UNILATERAL LEFT DIGITAL DIAGNOSTIC MAMMOGRAM 3D/2D: 09/20/2020 CLINICAL: Patient returns today to evaluate an architectural distortion in the left breast. Comparison is made to exams dated: 07/13/2020 mammogram - [facility], 10/23/[address] [facility] mogram, 09/24/2017 mammogram, and 09/04/2016 mammogram - [facility]. The tissue of lef t breast is predominantly fatty. There is possible architectural distortion in the left breast at 11 o'clock posterior depth. This is not confirmed on additional views. No other significant masses or calcifications are seen in the breast. IMPRESSION: NEGATIVE There is no mammographic evidence of malignancy. Possible architectural distortion in the left breast is not seen on additional views and is consisten t with overlapping fibroglandular tissue and is benign. A 1 year screening mammogram is recommended. Exam findings were conveyed to the patient. This exam was interpreted at Station ID: [id number]. NOTE: For mammograms, a report in lay terms will be sent to the patient. Approximately 15% of breast malignancies will not be visualized mammographically. In the management of a palpable breast mass, a negative mammogram must not discourage biopsy of a clinically suspicious lesion. Electronically Signed By: Tee Olivas M.D. slc/:09/20/2020 10:57:37 ACR BI-RADS Category 1: Negative 3341F PARENCHYMAL PATTERN: (F) - The breast(s) demonstrate(s) diffuse fatty replacement. BI-RADS CATEGORY: (1) - 1 RECOMMENDATION: (ANNUAL) - Recommend routine annual screening mammography. [id number] 1 year screening LATERALITY: (B)
== END 2020-09-20 10:10 | disposition home or self-care (01) ==
LOC: DI 10:09
PROVIDERS: ATTEND Family Medicine
DX: R92.8 Other abnormal and inconclusive findings on diagnostic imaging of breast (principal)

== ENCOUNTER 2020-10-25 10:11 | Outpatient (CLI) | payer MEDICARE, OTHER ==
--- NOTE | 2020-10-25 11:44 | Ultrasound Report ---
PROCEDURE: Duplex Upr Ext Arterial LT INDICATIONS: ASYMMETRICAL RAYNAUDS PHENOMENON TECHNIQUE: Color and pulse Doppler interrogation was performed of left upper extremity arterial systems, with im age documentation. COMPARISON: None. FINDINGS: Subclavian artery (proximal): 81 cm/sec, with monophasic flow. Subclavian artery (mid): 118 cm/sec, with triphasic flow. Subclavian artery (distal): 100 cm/sec, with triphasic flow. Axillary artery: 69 cm/sec, with triphasic flow. Brachial artery (proximal): 99 cm/sec, with triphasic flow. Brachial artery (mid): 99 cm/sec, with triphasic flow. Brachial artery (distal): 120 cm/sec, with triphasic flow. Radial artery (proximal): 101 cm/sec, with triphasic flow. Radial artery (mid): 81 cm/sec, with monophasic flow. Radial artery (distal): 85 cm/sec, with triphasic flow. Ulnar artery (proximal): 83 cm/sec, with triphasic flow. Ulnar artery (mid): 96 cm/sec. with monophasic flow. Ulnar artery (distal): 81 cm/sec, with monophasic flow. Torres-scale imaging description: No plaque identified IMPRESSION: Negative examination. No evidence of occlusion or focal stenosis Reviewed by: Zhang Campo MD on 10/25/2020 11:42 AM PST Approved by: Zhang Campo MD on 10/25/2020 11:42 AM PST Station ID: [id number]
== END 2020-10-25 10:12 | disposition home or self-care (01) ==
LOC: DI 10:11
PROVIDERS: ATTEND Physician Assistant Medical
DX: I73.00 Raynaud's syndrome without gangrene (principal)

== ENCOUNTER 2020-10-28 22:56 | Emergency (ER) | payer MEDICARE, OTHER ==
--- NOTE | 2020-10-28 23:45 | ED Physician Documentation ---
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 Patient is right hand dominant. 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 SPECIALIST: section, 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, Breast reduction - Present Medications Home Medications: Ambulatory Orders Medication Instructions Recorded Confirmed Atenolol 75 mg PO DAILY 06/28/13 08/04/17 Atorvastatin Calcium [Lipitor] 40 mg PO HS 06/28/13 10/28/20 Fluticasone [Flonase] 1 sprays TRAVIS BID 06/28/13 10/28/20 Lipase/Protease/Amylase [Zenpep Dr 4 tab PO AC 06/28/13 10/28/20 10,000 Units Capsule] Mometasone 220 Mcg [Asmanex 220 220 mcg IH BID 06/28/13 10/28/20 Mcg] Ondansetron [Ondansetron Odt] 4 mg PO HS 06/28/13 10/28/20 Oxycodone HCl/Acetaminophen 0.5 each PO Q4H PRN 06/28/13 10/28/20 [Percocet 5-325 mg Tablet] Salmeterol [Serevent] 1 puffs INH BID 06/28/13 10/28/20 Levothyroxine [Synthroid] 112 mcg PO DAILY 04/03/15 10/28/20 Gabapentin [Neurontin] 100 PO HS 10/28/20 Hydromorphone HCl/0.9% NaCl/Pf 10/28/20 [Hydromorphone 1 mg/5 ml-Ns] Spironolactone [Aldactone] 75 mg 10/28/20 - Allergies Allergies/Adverse Reactions: Allergies Allergy/AdvReac Type Severity Reaction Status Date / Time desipramine Allergy fuzzy head Verified 06/10/18 10:28 levofloxacin [From Levaquin] Allergy Rash Verified 06/10/18 10:28 lisinopril [From Zestril] Allergy unknown Verified 06/10/18 10:28 nortriptyline [Nortriptyline] Allergy fuzzy head Verified 06/10/18 10:28 tramadol HCl * [From Ultram] Allergy fuzzy head Verified 06/10/18 10:28 tape adhesive Allergy Itching Uncoded 06/10/18 10:28 - Social History Does the pt smoke?: No Smoking Status: Never smoker Does the pt drink ETOH?: Yes Does the pt have substance abuse?: No - Immunizations Immunizations are current?: Yes PD ED PE NORMAL - Vitals Vital signs reviewed: Yes - General General: Alert and oriented X 3, No acute distress, Well developed/nourished - Neuro Neuro: No motor deficit, No sensory deficit PD ED PE EXPANDED - Extremities DENNIS UE/Hands Visual: 1 - laceration (1 cm length) Results - Vitals Vitals: Vital Signs - 24 hr 10/28/20 10/29/20 23:00 00:58 Temperature 37.1 C 36.6 C Heart Rate 68 55 L Respiratory 16 16 Rate Blood Pressure 170/79 H 143/67 H O2 Saturation 97 95 Oxygen O2 Source Room air Procedures - Laceration (location) Hand left Length in cm: 1 Wound type: Linear, Into subcut fat Neurovascular status: Sensory intact, Motor intact, Vascular intact Tendon involvement: Tendon intact Anesthesia: Lidocaine 1% Wound Preparation: Chlorhexadine, Irrigated copiously NS, Wound explored. No: FB identified Skin layer closure: Nylon, Running, Size #-0 - enter number (4-0) Other: Patient tolerated well, No complications, Neurovascular intact, Dressing applied, Tetanus booster given Complexity: Simple PD MEDICAL DECISION MAKING - ED course Complexity details: considered differential, d/w patient Departure - Departure Disposition: 01 Home, Self Care Clinical Impression: Hand laceration Condition: Good Instructions: ED Laceration Hand Follow-Up: Martin Parekh DO [Primary Care Provider] - (7-10 days for suture removal ) Discharge Date/Time: 10/29/20 00:59
[2020-10-28] MEDS ORDERED: LIDOCAINE 1% 2 ML VIAL SUBQ STA (23:48)
[2020-10-28] MEDS ORDERED: TETANUS/DIPHTHERIA/PERTUSSIS 0.5 ML SYRINGE IM ONE (23:49)
[2020-10-29] MEDS ORDERED: BACITRACIN ZINC OINT 1 PACKET TOP STA (00:44)
[2020-10-29 00:59] VITALS: BP 143/67
== END 2020-10-29 00:59 | disposition home or self-care (01) ==
LOC: ED 22:56
DX: S61.412A Laceration without foreign body of left hand, initial encounter (principal); W26.0XXA Contact with knife, initial encounter; Y93.G1 Activity, food preparation and clean up; Y92.009 Unspecified place in unspecified non-institutional (private) residence as the place of occurrence of the external cause; Z23 Encounter for immunization; I10 Essential (primary) hypertension
CPT/HCPCS: 12001; 90471; 90715; 99283; A9270

== ENCOUNTER 2021-01-24 12:34 | Outpatient (CLI) | payer MEDICARE, OTHER ==
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
== END 2021-01-24 12:35 | disposition home or self-care (01) ==
LOC: SC 12:34
PROVIDERS: ATTEND Nurse Practitioner Family
DX: G47.33 Obstructive sleep apnea (adult) (pediatric) (principal); E66.3 Overweight; Z68.27 Body mass index [BMI] 27.0-27.9, adult
CPT/HCPCS: 99213; G0463; 99212

== ENCOUNTER 2021-05-24 12:40 | Outpatient (CLI) | payer MEDICARE, OTHER ==
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
== END 2021-05-24 12:41 | disposition home or self-care (01) ==
LOC: SC 12:40
PROVIDERS: ATTEND Nurse Practitioner Family
DX: G47.33 Obstructive sleep apnea (adult) (pediatric) (principal); E66.3 Overweight; Z68.27 Body mass index [BMI] 27.0-27.9, adult
CPT/HCPCS: 99212; G0463

== ENCOUNTER 2021-08-13 14:40 | Emergency (ER) | payer MEDICARE, OTHER ==
[2021-08-13 15:10] LABS: BASOPHILS # (AUTO) 0.1 10^3/uL (0.0-0.1); BASOPHILS % (AUTO) 1.1 %; EOSINOPHILS # (AUTO) 0.6 10^3/uL (0.0-0.7); EOSINOPHILS % (AUTO) 6.5 %; HCT - HEMATOCRIT 33.2 % (37.0-47.0); HGB - HEMOGLOBIN 10.4 g/dL (12.0-16.0); LYMPHOCYTES % (AUTO) 11.5 %; MEAN CORPUSCULAR HEMOGLOBIN 29.6 pg (27.0-31.0); MEAN CORPUSCULAR HGB CONC 31.3 g/dL (32.0-36.0); MEAN CORPUSCULAR VOLUME 94.6 fL (81.0-99.0); MEAN PLATELET VOLUME 9.7 fL (7.9-10.8); MONOCYTES # (AUTO) 1.4 10^3/uL (0.0-1.0); MONOCYTES % (AUTO) 15.7 %; NEUTROPHILS # (AUTO) 5.8 10^3/uL (1.5-6.6); NEUTROPHILS % (AUTO) 64.1 %; PLT - PLATELET COUNT 324 10^3/uL (130-450); RED BLOOD COUNT 3.51 10^6/uL (4.20-5.40); RED CELL DISTRIBUTION WIDTH 14.7 % (12.0-15.0)
[2021-08-13 15:23] LABS: ALBUMIN 4.1 g/dL (3.2-5.5); ALBUMIN/GLOBULIN RATIO 1.2 (1.0-2.2); ALKALINE PHOSPHATASE 104 IU/L (42-121); ALT ALANINE AMINOTRANSFERASE 19 IU/L (10-60); AST ASPARTATE AMINOTRANSFERASE 17 IU/L (10-42); BILIRUBIN,TOTAL 0.6 mg/dL (0.2-1.0); BUN - BLOOD UREA NITROGEN 61 mg/dL (6-20); CALCIUM 9.1 mg/dL (8.5-10.3); CARBON DIOXIDE - CO2 27 mmol/L (21-32); CHLORIDE 97 mmol/L (101-111); CREATININE 1.9 mg/dL (0.4-1.0); ETOH - ETHANOL < 5.0 mg/dL; GFR - MDRD 26 (>89); GLUCOSE 184 mg/dL (70-100); LIPASE 31 U/L (22-51); MAGNESIUM 2.7 mg/dL (1.7-2.8); POTASSIUM 5.3 mmol/L (3.5-5.0); SODIUM 136 mmol/L (135-145); TOTAL PROTEIN 7.5 g/dL (6.7-8.2)
[2021-08-13] MEDS ORDERED: SODIUM CHLORIDE 0.9% 2,000 ML IV STA (16:58)
--- NOTE | 2021-08-13 17:01 | ED Physician Documentation ---
PD HPI ABD PAIN - Stated complaint Stated Complaint: ABD PX, DIARRHEA, NAUSEA - Chief complaint Chief Complaint: Abd Pain - History obtained from History obtained from: Patient - Additional information Additional information: 76yo with chronic pancreatitis, has chronic pain and chronic nausea from same. Has had diarrhea x 6 days, some help with imodium. Been incontinent of diarrhea. She denies any increase in abdominal pain or nausea. No recent antibiotics or camping. No sick contacts. Review of Systems Ten Systems: 10 systems reviewed and negative Constitutional: reports: Reviewed and negative. 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, 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, Breast reduction - Present Medications Home Medications: Ambulatory Orders Medication Instructions Recorded Confirmed Atenolol 75 mg PO DAILY 06/28/13 08/04/17 Atorvastatin Calcium [Lipitor] 40 mg PO HS 06/28/13 10/28/20 Fluticasone [Flonase] 1 sprays TRAVIS BID 06/28/13 10/28/20 Lipase/Protease/Amylase [Zenpep Dr 4 tab PO AC 06/28/13 10/28/20 10,000 Units Capsule] Mometasone 220 Mcg [Asmanex 220 220 mcg IH BID 06/28/13 10/28/20 Mcg] Ondansetron [Ondansetron Odt] 4 mg PO HS 06/28/13 10/28/20 Oxycodone HCl/Acetaminophen 0.5 each PO Q4H PRN 06/28/13 10/28/20 [Percocet 5-325 mg Tablet] Salmeterol [Serevent] 1 puffs INH BID 06/28/13 10/28/20 Levothyroxine [Synthroid] 112 mcg PO DAILY 04/03/15 10/28/20 Gabapentin [Neurontin] 100 PO HS 10/28/20 Hydromorphone HCl/0.9% NaCl/Pf 10/28/20 [Hydromorphone 1 mg/5 ml-Ns] Spironolactone [Aldactone] 75 mg 10/28/20 - Allergies Allergies/Adverse Reactions: Allergies Allergy/AdvReac Type Severity Reaction Status Date / Time desipramine Allergy fuzzy head Verified 06/10/18 10:28 levofloxacin [From Levaquin] Allergy Rash Verified 06/10/18 10:28 lisinopril [From Zestril] Allergy unknown Verified 06/10/18 10:28 nortriptyline [Nortriptyline] Allergy fuzzy head Verified 06/10/18 10:28 tramadol HCl * [From Ultram] Allergy fuzzy head Verified 06/10/18 10:28 tape adhesive Allergy Itching Uncoded 06/10/18 10:28 - Social History Does the pt smoke?: No Smoking Status: Never smoker Does the pt drink ETOH?: Yes Does the pt have substance abuse?: No - Immunizations Immunizations are current?: Yes PD ED PE NORMAL - Vitals Vital signs reviewed: Yes - General General: Alert and oriented X 3, No acute distress - Abdomen Abdomen: Normal bowel sounds, Soft, Non tender - Back Back: No CVA TTP, No spinal TTP - Derm Derm: Normal color, Warm and dry - Extremities Extremities: No edema, No calf tenderness / cord - Neuro Neuro: Alert and oriented X 3, Normal speech Results - Vitals Vitals: Vital Signs - 24 hr 08/13/21 08/13/21 08/13/21 14:42 18:17 19:13 Temperature 36.4 C L 36.8 C Heart Rate 64 62 Heart Rate [ 60 Sitting] Heart Rate [ 65 Standing] Heart Rate [ 62 Supine] Respiratory 16 16 Rate Blood Pressure 130/69 113/68 Blood Pressure 159/74 H [Sitting] Blood Pressure 151/65 H [Standing] Blood Pressure 129/62 [Supine] O2 Saturation 100 100 Oxygen O2 Source Room air - Labs Labs: Laboratory Tests 08/13/21 08/13/21 08/13/21 15:06 15:06 16:55 WBC 9.0 RBC 3.51 L Hgb 10.4 L Hct 33.2 L MCV 94.6 MCH 29.6 MCHC 31.3 L RDW 14.7 Plt Count 324 MPV 9.7 Neut # (Auto) 5.8 Lymph # (Auto) 1.0 L [place] # (Auto) 1.4 H Eos # (Auto) 0.6 Baso # (Auto) 0.1 Absolute Nucleated RBC 0.00 Nucleated RBC % 0.0 Sodium 136 Potassium 5.3 H Chloride 97 L Carbon Dioxide 27 Anion Gap 12.0 BUN 61 H Creatinine 1.9 H Estimated GFR (MDRD) 26 L Glucose 184 H Calcium 9.1 Magnesium 2.7 Total Bilirubin 0.6 AST 17 ALT 19 Alkaline Phosphatase 104 Total Protein 7.5 Albumin 4.1 Globulin 3.4 Albumin/Globulin Ratio 1.2 Lipase 31 Urine Color YELLOW Urine Clarity CLEAR Urine pH 6.0 Ur Specific [place] 1.010 Urine Protein NEGATIVE Urine Glucose (UA) NEGATIVE Urine Ketones NEGATIVE Urine Occult Blood NEGATIVE Urine Nitrite NEGATIVE Urine Bilirubin NEGATIVE Urine Urobilinogen 0.2 (NORMAL) Ur Leukocyte Esterase NEGATIVE Ur Microscopic Review NOT INDICATED Urine Culture Comments NOT INDICATED Ethyl Alcohol < 5.0 08/13/21 18:49 WBC RBC Hgb Hct MCV MCH MCHC RDW Plt Count MPV Neut # (Auto) Lymph # (Auto) [place] # (Auto) Eos # (Auto) Baso # (Auto) Absolute Nucleated RBC Nucleated RBC % Sodium 141 Potassium 5.2 H Chloride 104 Carbon Dioxide 27 Anion Gap 10.0 BUN 54 H Creatinine 1.6 H Estimated GFR (MDRD) 31 L Glucose 81 Calcium 8.2 L Magnesium Total Bilirubin AST ALT Alkaline Phosphatase Total Protein Albumin Globulin Albumin/Globulin Ratio Lipase Urine Color Urine Clarity Urine pH Ur Specific [place] Urine Protein Urine Glucose (UA) Urine Ketones Urine Occult Blood Urine Nitrite Urine Bilirubin Urine Urobilinogen Ur Leukocyte Esterase Ur Microscopic Review Urine Culture Comments Ethyl Alcohol PD MEDICAL DECISION MAKING - ED course ED course: 76-year-old woman with acute kidney injury related to profuse diarrhea for the last 6 days. Benign exam otherwise. Case presented to Dr. Cespedes for admission at 5 PM who feels that we should simply give her fluids and recheck. After the administration of 2 L of normal saline orthostatics were done and she is not orthostatic. Her metabolic panel was improved. Departure - Departure Disposition: 01 Home, Self Care Clinical Impression: DIAMOND (acute kidney injury) Diarrhea Qualifiers: Diarrhea type: unspecified type Qualified Code(s): R19.7 - Diarrhea, unspecified Condition: Stable Record reviewed to determine appropriate education?: Yes Instructions: ED Dehydration Comments: Return to the emergency department for repeat evaluation and repeat labs. Drink plenty of fluids. Return sooner for new or worsening symptoms. Okay to continue taking Imodium as needed for the diarrhea.
[2021-08-13 17:05] LABS: BILIRUBIN,URINE NEGATIVE (NEGATIVE); GLUCOSE, URINE (UA) NEGATIVE (NEGATIVE); KETONES,URINE (UA) NEGATIVE (NEGATIVE); LEUKOCYTE ESTERASE, URINE NEGATIVE (NEGATIVE); NITRITE,URINE NEGATIVE (NEGATIVE); OCCULT BLOOD,URINE NEGATIVE (NEGATIVE); PROTEIN,URINE NEGATIVE (NEGATIVE); UROBILINOGEN,URINE 0.2 (NORMAL) E.U./dL (NORMAL)
[2021-08-13 17:10] LABS: CLARITY,URINE CLEAR (CLEAR)
[2021-08-13 19:02] LABS: CALCIUM 8.2 mg/dL (8.5-10.3); CREATININE 1.6 mg/dL (0.4-1.0); POTASSIUM 5.2 mmol/L (3.5-5.0)
[2021-08-13 19:14] VITALS: BP 129/62
== END 2021-08-13 19:40 | disposition home or self-care (01) ==
LOC: ED 14:40
DX: N17.9 Acute kidney failure, unspecified (principal); R19.7 Diarrhea, unspecified; R11.0 Nausea; K86.1 Other chronic pancreatitis; I10 Essential (primary) hypertension
CPT/HCPCS: 36415; 80048; 80053; 81003; 83690; 83735; 85025; 96360; 96361; 99283; 99284; G0480; 80320; 81001; 87086

== ENCOUNTER 2021-08-29 19:12 | Outpatient (CLI) | payer MEDICARE, OTHER | END 2021-08-29 19:13 | disposition critical access hospital (66) | LOC: EMS 19:12 | DX: R41.82 Altered mental status, unspecified (principal) | CPT/HCPCS: A0425; A0429 ==

== ENCOUNTER 2021-08-29 19:21 | Inpatient (IN) | payer MEDICARE, OTHER ==
--- NOTE | 2021-08-29 19:38 | ED Physician Documentation ---
History of Present Illness - Stated complaint Stated Complaint: ALOC - Chief complaint Chief Complaint: Neuro - History obtained from History obtained from: Patient, Family, EMS - History of Present Illness Pain level max: 0 Pain level now: 0 - Additonal information Additional information: Patient is a 76-year-old female who is brought in by EMS today for a mental status. last saw her last night. States she has had vomiting, cough, congestion for the past 3 days. No further medical history is available. does not know what medication she takes but states that she does take medication. He states he does not know any medical problems other than she "has a lot". This is per EMS. 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, Breast reduction - Present Medications Home Medications: Ambulatory Orders Medication Instructions Recorded Confirmed Atenolol 75 mg PO DAILY 06/28/13 08/04/17 Atorvastatin Calcium [Lipitor] 40 mg PO HS 06/28/13 10/28/20 Fluticasone [Flonase] 1 sprays TRAVIS BID 06/28/13 10/28/20 Lipase/Protease/Amylase [Zenpep Dr 4 tab PO AC 06/28/13 10/28/20 10,000 Units Capsule] Mometasone 220 Mcg [Asmanex 220 220 mcg IH BID 06/28/13 10/28/20 Mcg] Ondansetron [Ondansetron Odt] 4 mg PO HS 06/28/13 10/28/20 Oxycodone HCl/Acetaminophen 0.5 each PO Q4H PRN 06/28/13 10/28/20 [Percocet 5-325 mg Tablet] Salmeterol [Serevent] 1 puffs INH BID 06/28/13 10/28/20 Levothyroxine [Synthroid] 112 mcg PO DAILY 04/03/15 10/28/20 Gabapentin [Neurontin] 100 PO HS 10/28/20 Hydromorphone HCl/0.9% NaCl/Pf 12/12/20 [Hydromorphone 1 mg/5 ml-Ns] Spironolactone [Aldactone] 75 mg 10/28/20 - Allergies Allergies/Adverse Reactions: Allergies Allergy/AdvReac Type Severity Reaction Status Date / Time desipramine Allergy fuzzy head Verified 06/10/18 10:28 levofloxacin [From Levaquin] Allergy Rash Verified 06/10/18 10:28 lisinopril [From Zestril] Allergy unknown Verified 06/10/18 10:28 nortriptyline [Nortriptyline] Allergy fuzzy head Verified 06/10/18 10:28 tramadol HCl * [From Ultram] Allergy fuzzy head Verified 06/10/18 10:28 tape adhesive Allergy Itching Uncoded 06/10/18 10:28 - Social History Does the pt smoke?: No Smoking Status: Never smoker Does the pt drink ETOH?: Yes Does the pt have substance abuse?: No - Immunizations Immunizations are current?: Yes PD ED PE NORMAL - Vitals Vital signs reviewed: Yes - General General: No acute distress, Well developed/nourished, Other (drowsy, arousable) - HEENT HEENT: Atraumatic, EOMI, Other (pupils pinpoint B) - Neck Neck: Supple, no meningeal sign, No bony TTP - Cardiac Cardiac: RRR - Respiratory Respiratory: No respiratory distress, Clear bilaterally - Abdomen Abdomen: Soft, Non tender, Non distended - Derm Derm: Warm and dry, No rash - Extremities Extremities: No edema - Neuro Neuro: Other (drowsy, arousable, speaks 1-2 words at a time.) Results - Vitals Vitals: Vital Signs - 24 hr 08/29/21 08/29/21 08/29/21 19:24 19:57 20:05 Temperature 99.8 C H 37.7 C Heart Rate 82 75 74 Respiratory 35 H 27 H 29 H Rate Blood Pressure 140/48 H 132/51 H 113/46 L O2 Saturation 100 96 95 08/29/21 08/29/21 08/29/21 20:40 21:00 21:29 Temperature Heart Rate 78 71 Respiratory 20 27 H 27 H Rate Blood Pressure 112/46 L 106/46 L O2 Saturation 96 96 97 08/29/21 21:30 Temperature Heart Rate 73 Respiratory 19 Rate Blood Pressure 123/58 L O2 Saturation 96 Oxygen O2 Source Nasal cannula Oxygen Flow Rate 4 - EKG (time done) 1924 Rate: Rate (enter#) (81) Rhythm: NSR [place]: Normal Intervals: Normal [place] QRS: Normal Ischemia: Normal ST segments - Labs Labs: Laboratory Tests 08/29/21 08/29/21 08/29/21 19:30 19:30 19:30 WBC 15.0 H RBC 3.63 L Hgb 10.4 L Hct 32.9 L MCV 90.6 MCH 28.7 MCHC 31.6 L RDW 15.4 H Plt Count 392 MPV 9.7 Neut # (Auto) 13.4 H Lymph # (Auto) 0.3 L [place] # (Auto) 1.1 H Eos # (Auto) 0.0 Baso # (Auto) 0.0 Absolute Nucleated RBC 0.00 Nucleated RBC % 0.0 Sodium 136 Potassium 5.6 H Chloride 103 Carbon Dioxide 19 L Anion Gap 14.0 H BUN 59 H Creatinine 1.4 H Estimated GFR (MDRD) 37 L Glucose 124 H Calcium 9.0 Total Bilirubin 0.9 AST 72 H ALT 46 Alkaline Phosphatase 72 Total Creatine Kinase Total Protein 7.1 Albumin 3.5 Globulin 3.6 Albumin/Globulin Ratio 1.0 Lipase 50 TSH 1.14 Urine Color Urine Clarity Urine pH Ur Specific [place] Urine Protein Urine Glucose (UA) Urine Ketones Urine Occult Blood Urine Nitrite Urine Bilirubin Urine Urobilinogen Ur Leukocyte Esterase Ur Microscopic Review Urine Culture Comments Nasal Adenovirus (PCR) Nasal B. parapertussis DNA (PCR) Nasal Coronavir 229E PCR Nasal Coronavir HKU1 PCR Nasal Coronavir NL63 PCR Nasal Coronavir OC43 PCR Nasal Enterovir/Rhinovir PCR Nasal Influenza B PCR Nasal Influenza A PCR Nasal Parainfluen 1 PCR Nasal Parainfluen 2 PCR Nasal Parainfluen 3 PCR Nasal Parainfluen 4 PCR Nasal RSV (PCR) Nasal B.pertussis DNA PCR Nasal C.pneumoniae (PCR) [place] Human Metapneumo PCR Nasal M.pneumoniae (PCR) Nasal SARS-CoV-2 (PCR) Salicylates < 6.0 Urine Opiates Screen Ur Oxycodone Screen Urine Methadone Screen Ur Propoxyphene Screen Acetaminophen < 10 L Ur Barbiturates Screen Ur Tricyclics Screen Ur Phencyclidine Scrn Ur Amphetamine Screen U Methamphetamines Scrn U Benzodiazepines Scrn Urine Cocaine Screen U Cannabinoids Screen Ethyl Alcohol < 5.0 08/29/21 08/29/21 08/29/21 19:35 19:40 19:50 WBC RBC Hgb Hct MCV MCH MCHC RDW Plt Count MPV Neut # (Auto) Lymph # (Auto) [place] # (Auto) Eos # (Auto) Baso # (Auto) Absolute Nucleated RBC Nucleated RBC % Sodium Potassium Chloride Carbon Dioxide Anion Gap BUN Creatinine Estimated GFR (MDRD) Glucose Calcium Total Bilirubin AST ALT Alkaline Phosphatase Total Creatine Kinase 1030 H* Total Protein Albumin Globulin Albumin/Globulin Ratio Lipase TSH Urine Color YELLOW Urine Clarity CLEAR Urine pH 6.0 Ur Specific [place] 1.020 Urine Protein TRACE Urine Glucose (UA) NEGATIVE Urine Ketones 15 H Urine Occult Blood TRACE-INTA Urine Nitrite NEGATIVE Urine Bilirubin NEGATIVE Urine Urobilinogen 0.2 (NORMAL) Ur Leukocyte Esterase NEGATIVE Ur Microscopic Review NOT INDICATED Urine Culture Comments NOT INDICATED Nasal Adenovirus (PCR) NOT DETECTED Nasal B. parapertussis DNA (PCR) NOT DETECTED Nasal Coronavir 229E PCR NOT DETECTED Nasal Coronavir HKU1 PCR NOT DETECTED Nasal Coronavir NL63 PCR NOT DETECTED Nasal Coronavir OC43 PCR NOT DETECTED Nasal Enterovir/Rhinovir PCR NOT DETECTED Nasal Influenza B PCR NOT DETECTED Nasal Influenza A PCR NOT DETECTED Nasal Parainfluen 1 PCR NOT DETECTED Nasal Parainfluen 2 PCR NOT DETECTED Nasal Parainfluen 3 PCR NOT DETECTED Nasal Parainfluen 4 PCR NOT DETECTED Nasal RSV (PCR) NOT DETECTED Nasal B.pertussis DNA PCR NOT DETECTED Nasal C.pneumoniae (PCR) NOT DETECTED [place] Human Metapneumo PCR NOT DETECTED Nasal M.pneumoniae (PCR) NOT DETECTED Nasal SARS-CoV-2 (PCR) DETECTED A Salicylates Urine Opiates Screen Ur Oxycodone Screen Urine Methadone Screen Ur Propoxyphene Screen Acetaminophen Ur Barbiturates Screen Ur Tricyclics Screen Ur Phencyclidine Scrn Ur Amphetamine Screen U Methamphetamines Scrn U Benzodiazepines Scrn Urine Cocaine Screen U Cannabinoids Screen Ethyl Alcohol 08/29/21 19:50 WBC RBC Hgb Hct MCV MCH MCHC RDW Plt Count MPV Neut # (Auto) Lymph # (Auto) [place] # (Auto) Eos # (Auto) Baso # (Auto) Absolute Nucleated RBC Nucleated RBC % Sodium Potassium Chloride Carbon Dioxide Anion Gap BUN Creatinine Estimated GFR (MDRD) Glucose Calcium Total Bilirubin AST ALT Alkaline Phosphatase Total Creatine Kinase Total Protein Albumin Globulin Albumin/Globulin Ratio Lipase TSH Urine Color Urine Clarity Urine pH Ur Specific [place] Urine Protein Urine Glucose (UA) Urine Ketones Urine Occult Blood Urine Nitrite Urine Bilirubin Urine Urobilinogen Ur Leukocyte Esterase Ur Microscopic Review Urine Culture Comments Nasal Adenovirus (PCR) Nasal B. parapertussis DNA (PCR) Nasal Coronavir 229E PCR Nasal Coronavir HKU1 PCR Nasal Coronavir NL63 PCR Nasal Coronavir OC43 PCR Nasal Enterovir/Rhinovir PCR Nasal Influenza B PCR Nasal Influenza A PCR Nasal Parainfluen 1 PCR Nasal Parainfluen 2 PCR Nasal Parainfluen 3 PCR Nasal Parainfluen 4 PCR Nasal RSV (PCR) Nasal B.pertussis DNA PCR Nasal C.pneumoniae (PCR) [place] Human Metapneumo PCR Nasal M.pneumoniae (PCR) Nasal SARS-CoV-2 (PCR) Salicylates Urine Opiates Screen POSITIVE H Ur Oxycodone Screen POSITIVE H Urine Methadone Screen NEGATIVE Ur Propoxyphene Screen NEGATIVE Acetaminophen Ur Barbiturates Screen NEGATIVE Ur Tricyclics Screen NEGATIVE Ur Phencyclidine Scrn NEGATIVE Ur Amphetamine Screen NEGATIVE U Methamphetamines Scrn NEGATIVE U Benzodiazepines Scrn NEGATIVE Urine Cocaine Screen NEGATIVE U Cannabinoids Screen NEGATIVE Ethyl Alcohol - Rads (name of study) head CT Radiology: Final report received, EMP read contemporaneously, See rad report (No acute abnormality) cervical spine CT Radiology: Final report received, EMP read contemporaneously, See rad report cxr Radiology: Final report received, EMP read contemporaneously, See rad report PD MEDICAL DECISION MAKING - ED course Complexity details: reviewed results, re-evaluated patient, considered differential, d/w patient ED course: 76-year-old female with altered mental status today, found down by her . She does have Covid and Covid pneumonia. She also has had some hypoxia in the emergency department. Possible sleep apnea vs covid. Patient is on chronic opiates and potentially had an accidental overdose? No significant findings on head CT. Does have several electrolyte abnormalities on laboratory testing. We will admit the patient for further care. Discussed the case with Dr. Hung, hospitalist who accepts. This document was made in part using voice recognition software. While efforts are made to proofread this document, sound alike and grammatical errors may occur. Departure - Departure Disposition: 66 [facility] DC/Xfer Clinical Impression: Dehydration, Renal insufficiency, COVID-19, Hypoxia, Hyperkalemia Altered mental status Qualifiers: Altered mental status type: unspecified Qualified Code(s): R41.82 - Altered mental status, unspecified Condition: Stable Discharge Date/Time: 08/29/21 22:15
[2021-08-29 19:45] LABS: BASOPHILS % (AUTO) 0.2 %; EOSINOPHILS % (AUTO) 0.2 %; HCT - HEMATOCRIT 32.9 % (37.0-47.0); HGB - HEMOGLOBIN 10.4 g/dL (12.0-16.0); LYMPHOCYTES # (AUTO) 0.3 10^3/uL (1.5-3.5); LYMPHOCYTES % (AUTO) 2.1 %; MEAN CORPUSCULAR HEMOGLOBIN 28.7 pg (27.0-31.0); MEAN CORPUSCULAR HGB CONC 31.6 g/dL (32.0-36.0); MEAN CORPUSCULAR VOLUME 90.6 fL (81.0-99.0); MEAN PLATELET VOLUME 9.7 fL (7.9-10.8); MONOCYTES # (AUTO) 1.1 10^3/uL (0.0-1.0); NEUTROPHILS # (AUTO) 13.4 10^3/uL (1.5-6.6); NEUTROPHILS % (AUTO) 89.4 %; PLT - PLATELET COUNT 392 10^3/uL (130-450); RED BLOOD COUNT 3.63 10^6/uL (4.20-5.40); RED CELL DISTRIBUTION WIDTH 15.4 % (12.0-15.0)
[2021-08-29 19:55] LABS: ACETAMINOPHEN < 10 ug/mL (10-30); ALBUMIN 3.5 g/dL (3.2-5.5); ALKALINE PHOSPHATASE 72 IU/L (42-121); ALT ALANINE AMINOTRANSFERASE 46 IU/L (10-60); AST ASPARTATE AMINOTRANSFERASE 72 IU/L (10-42); BILIRUBIN,TOTAL 0.9 mg/dL (0.2-1.0); BUN - BLOOD UREA NITROGEN 59 mg/dL (6-20); CARBON DIOXIDE - CO2 19 mmol/L (21-32); CHLORIDE 103 mmol/L (101-111); CREATININE 1.4 mg/dL (0.4-1.0); ETOH - ETHANOL < 5.0 mg/dL; GFR - MDRD 37 (>89); GLUCOSE 124 mg/dL (70-100); LIPASE 50 U/L (22-51); POTASSIUM 5.6 mmol/L (3.5-5.0); SALICYLATE < 6.0 mg/dL; SODIUM 136 mmol/L (135-145); TOTAL PROTEIN 7.1 g/dL (6.7-8.2)
[2021-08-29 19:59] LABS: MUDS CUTOFF CONCENTRATIONS CUTOFF CONC BELOW:
[2021-08-29 20:04] LABS: BILIRUBIN,URINE NEGATIVE (NEGATIVE); GLUCOSE, URINE (UA) NEGATIVE (NEGATIVE); KETONES,URINE (UA) 15 mg/dL (NEGATIVE); LEUKOCYTE ESTERASE, URINE NEGATIVE (NEGATIVE); NITRITE,URINE NEGATIVE (NEGATIVE); OCCULT BLOOD,URINE TRACE-INTA (NEGATIVE); PROTEIN,URINE TRACE mg/dL (NEGATIVE); UROBILINOGEN,URINE 0.2 (NORMAL) E.U./dL (NORMAL)
[2021-08-29 20:06] LABS: CLARITY,URINE CLEAR (CLEAR)
[2021-08-29 20:14] LABS: AMPHETAMINE SCREEN,URINE NEGATIVE (NEGATIVE); BARBITURATE SCREEN,UR NEGATIVE (NEGATIVE); BENZODIAZEPINES SCREEN, URINE NEGATIVE (NEGATIVE); COCAINE SCREEN URINE NEGATIVE (NEGATIVE); METHADONE SCREEN, URINE NEGATIVE (NEGATIVE); METHAMPHETAMINES SCREEN, URINE NEGATIVE (NEGATIVE); OPIATE SCREEN, URINE POSITIVE (NEGATIVE); OXYCODONE SCREEN, URINE POSITIVE (NEGATIVE); PROPOXYPHENE SCREEN, URINE NEGATIVE (NEGATIVE); THC CANNABINOID SCREEN, URINE NEGATIVE (NEGATIVE); TRICYCLIC ANTIDEPRESSANT,URINE NEGATIVE (NEGATIVE)
[2021-08-29 20:37] LABS: CORONAVIRUS 229E-RESP PCR NOT DETECTED; CORONAVIRUS HKU1-RESP PCR NOT DETECTED; CORONAVIRUS NL63-RESP PCR NOT DETECTED; CORONAVIRUS OC43-RESP PCR NOT DETECTED
[2021-08-29 20:39] LABS: B. PARAPERTUSSIS- RESP PCR PAN NOT DETECTED; B. PERTUSSIS- RESP PCR PANEL NOT DETECTED; C. PNEUMONIAE- RESP PCR PANEL NOT DETECTED; HUMAN METAPNEUMOVIRUS NOT DETECTED; INFLUENZA A- RESP PCR PANEL NOT DETECTED; INFLUENZA B - RESP PCR PANEL NOT DETECTED; M. PNEUMONIAE- RESP PCR PANEL NOT DETECTED; PARAINFLUENZA VIRUS 1 NOT DETECTED; PARAINFLUENZA VIRUS 2 NOT DETECTED; PARAINFLUENZA VIRUS 3 NOT DETECTED; PARAINFLUENZA VIRUS 4 NOT DETECTED; RHINOVIRUS/ENTEROVIRUS NOT DETECTED; RSV- RESP PCR PANEL NOT DETECTED; SARS-CoV-2 -RESP PCR PANEL DETECTED
[2021-08-29] MEDS ORDERED: cefTRIAXone 2 GM in SODIUM CHLORIDE 0.9% MINIBAG 100 ML IV SCH (21:00)
--- NOTE | 2021-08-29 21:24 | CT Report ---
PROCEDURE: CERVICAL SPINE WO INDICATIONS: altered mental status TECHNIQUE: Noncontrast 3 mm thick sections acquired from the skull base to the T4 level. Sagittal and coronal r eformats were then constructed. For radiation dose reduction, the following was used: automated exp osure control, adjustment of mA and/or kV according to patient size. COMPARISON: None. FINDINGS: Image quality: Excellent. Bones: No fractures or dislocations. Visualized superior ribs are intact. No spine Soft tissues: Prevertebral soft tissues are normal in thickness. No paravertebral hematomas. No ap ical pneumothoraces. She opacities noted in the left lung apex. IMPRESSION: 1. No fracture. No acute osseous lesion. If there is continued clinical concern for pathology, then M RI should be considered for further evaluation. 2. Patchy opacities in the left lung apex suspicious for pneumonia. Reviewed by: Erin Villalta MD, PhD on 08/29/2021 9:22 PM PDT Approved by: Erin Villalta MD, PhD on 08/29/2021 9:22 PM PDT Station ID: [id number]
--- NOTE | 2021-08-29 21:25 | CT Report ---
PROCEDURE: HEAD WO INDICATIONS: altered mental status TECHNIQUE: Noncontrast 4.5 mm thick angled axial sections acquired from the foramen magnum to the vertex. For r adiation dose reduction, the following was used: automated exposure control, adjustment of mA and/or kV according to patient size. COMPARISON: None FINDINGS: Image quality: Excellent. CSF spaces: Basal cisterns are patent. No extra-axial fluid collections. The ventricles are symmet liz in size and shape. Brain: No intracranial bleeds or masses. There is cerebral volume loss for age, with resultant vent ricular and sulcal prominence. There are periventricular and deep white matter chronic small vessel ischemic changes. There is intracranial internal carotid artery atherosclerosis. Skull and face: Calvarium and visualized facial bones appear intact, without suspicious lesions. Sinuses: Mucosal thickening noted in the left maxillary sinus, bilateral ethmoid air cells and left sphenoid sinus. The mastoids are clear. IMPRESSION: No acute intracranial disease process. Reviewed by: Erin Villalta MD, PhD on 08/29/2021 9:24 PM PDT Approved by: Erin Villalta MD, PhD on 08/29/2021 9:24 PM PDT Station ID: [id number]
[2021-08-29] MEDS ORDERED: ONDANSETRON 4 MG/2 ML VIAL IVP PRN (21:33)
[2021-08-29] MEDS ORDERED: ONDANSETRON ODT 4 MG TABLET TL PRN (21:33)
[2021-08-29] MEDS ORDERED: SODIUM CHLORIDE FLUSH 0.9% 10 ML SYRINGE IVP PRN (21:33)
[2021-08-29] MEDS ORDERED: DEXAMETHASONE 10 MG/ML VIAL IVP SCH (21:38)
[2021-08-29] MEDS ORDERED: INSULIN REGULAR HUMAN 300 UNIT/3 ML VIAL IVP ONE (21:42)
[2021-08-29] MEDS ORDERED: DEXTROSE 50% ABBOJECT 25 GM/50 ML SYRINGE IVP STA (21:43)
--- NOTE | 2021-08-29 21:45 | HISTORY & PHYSICAL EXAMINATION ---
Chief Complaint - Chief Complaint Chief Complaint: Found down History of Present Illness - Admitted From Admitted From:: Home - History Obtained From Records Reviewed: Yes History obtained from: ER Physician, EMR Exam Limitations: Patient is altered and unable to provide a history. - History of Present Illness HPI Comment/Other: This is a 76-year-old female with a past medical history significant for sleep apnea, asthma, hypothyroidism, hypertension who presents today after being found down by her . History is obtained from the ER physician and EMR as the patient is altered and unable to provide a history. She is reportedly been seen by her last night in her usual state of health. He went to work this morning and when he returned, he found her down and "confused." She reportedly had been sick over the past few days with nasal congestion, cough and vomiting. He states she is normally quite independent and keeps herself busy throughout the day. She was vaccinated with [employer]ron[employer] Benjamin few months ago against COVID-19. Her reports that she has had no changes in her medications recently. In the emergency department, she is noted to be afebrile. She was hypoxic when asleep requiring 2 L of oxygen via nasal cannula. Labs were significant white count of 15,000 with a left shift. Her creatinine was 1.3 which is improved from last month when it was as high as 1.9. Chest x-ray was concerning for left sided pneumonia. CT head and cervical spine showed no acute abnormalities. Urine toxicology was positive for oxycodone but otherwise negative I did discuss goals of care with the patient's and he states that he believes she would want to be a full code. 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 Living arrangement: At home Living Situation: With spouse/s.o. Social History Notes: She lives at home with her , Chago. He states that she is a non-smoker and does not drink alcohol. Meds/Allgy - Home Medications Home Medications: Ambulatory Orders Medication Instructions Recorded Confirmed Atenolol 75 mg PO DAILY 06/28/13 08/30/21 Atorvastatin Calcium [Lipitor] 60 mg PO HS 06/28/13 08/30/21 Salmeterol [Serevent] 1 puffs INH BID 06/28/13 08/30/21 Levothyroxine [Synthroid] 112 mcg PO DAILY 04/03/15 08/30/21 Gabapentin [Neurontin] 200 mg PO HS 10/28/20 08/30/21 Spironolactone [Aldactone] 75 mg PO DAILY 10/28/20 08/30/21 Furosemide [Lasix] 40 - 80 mg PO DAILY PRN 08/30/21 08/30/21 Lipase/Protease/Amylase [Creon Dr 4 cap PO TIDWM 08/30/21 08/30/21 12,000 Units Capsule] Mometasone Furoate [Asmanex] 1 puffs PO BID 08/30/21 08/30/21 Montelukast [Singulair] 10 mg PO DAILY 08/30/21 08/30/21 Oxycodone HCl/Acetaminophen 1 tab PO Q8H PRN 08/30/21 08/30/21 [Percocet 5-325 mg Tablet] - Allergies Allergies/Adverse Reactions: Allergies Allergy/AdvReac Type Severity Reaction Status Date / Time desipramine Allergy fuzzy head Verified 06/10/18 10:28 levofloxacin [From Levaquin] Allergy Rash Verified 06/10/18 10:28 lisinopril [From Zestril] Allergy unknown Verified 06/10/18 10:28 nortriptyline [Nortriptyline] Allergy fuzzy head Verified 06/10/18 10:28 tramadol HCl * [From Ultram] Allergy fuzzy head Verified 06/10/18 10:28 adhesive tape AdvReac Intermediate Itching Verified 08/30/21 07:22 Review of Systems - All Other Systems All Other Systems: reports: Other (She is altered and unable to provide a history.) Prior Level of Functionality: She is reportedly independent with her ADL's. Exam - Vital Signs Reviewed Vital Signs: Yes Vital Signs: Vital Signs x48h Temp Pulse Resp BP Pulse Ox 08/29/21 21:30 73 19 123/58 L 96 08/29/21 21:29 27 H 97 08/29/21 21:00 71 27 H 106/46 L 96 08/29/21 20:40 78 20 112/46 L 96 08/29/21 20:05 74 29 H 113/46 L 95 08/29/21 19:57 37.7 C 75 27 H 132/51 H 96 08/29/21 19:24 99.8 C H 82 35 H 140/48 H 100 - Physical Exam General Appearance: positive: Lethargic, Other (She is quite lethargic and somnolent. Will open her eyes to some questions but will not answer and will fall back to sleep.) Eyes Bilateral: positive: PERRL, Conjunctivae nml ENT: positive: Dry mucous membranes. negative: No signs of dehydration Neck: positive: Nml inspection Respiratory: positive: No respiratory distress. negative: Wheezes Cardiovascular: negative: Irregularly irregular, Tachycardia Abdomen: positive: Non-tender, No distention. negative: Tenderness Skin: positive: Warm, Dry Extremities: positive: No pedal edema Neurologic/Psychiatric: positive: Other (She is able to move all 4 extremities spontaneously. She could not tell me where she is or what the year or month a re.) Conclusion/Plan - Problem List (1) Altered mental status Conclusion/Plan: The etiology of this is not clear at the moment. This may be related to infection or related to medication use given she is on chronic opiates at home. CT of the head showed no acute abnormalities. Her TSH is within normal limits. At this time, we will hydrate her with IV fluids and start her on empiric antibiotics for the pneumonia. We will avoid all sedatives. Will consider MRI if there is no improvement. Qualifiers: Altered mental status type: unspecified Qualified Code(s): R41.82 - Altered mental status, unspecified (2) Pneumonia due to 2019 novel coronavirus Conclusion/Plan: Her x-ray reveals left-sided pneumonia and she is Covid positive. It is unclear if this is a bacterial or just a viral pneumonia. She is vaccinated with Benjamin [employer] Benjamin. She is also now hypoxic requiring 2 L of oxygen although this may be related to her underlying sleep apnea and her lethargic. We will start her on ceftriaxone azithromycin empirically given her white count is elevated at 15,000. We will also start her on Decadron and will consult pharmacy for remdesivir. Contact precautions. (3) DIAMOND (acute kidney injury) Conclusion/Plan: Her creatinine is elevated at 1.3. This is actually improved compared to prior lab values where it was as high as 1.9. Suspect is likely prerenal in injury secondary to volume depletion due to poor oral intake from her viral illness. We will hydrate her with lactated Ringer's and avoid nephrotoxins. Monitor renal function and urine output. (4) Hyperkalemia Conclusion/Plan: This is likely related to the acute kidney injury. Her potassium is elevated at 5.6. We will give her a dose of IV insulin and dextrose. We will recheck BMP in the morning. (5) Hypothyroidism Conclusion/Plan: Her TSH is within normal limits. We will continue home Synthroid. - Lab Results Lab results reviewed: Yes Jesus Bones: 08/30/21 05:58 08/30/21 05:58 - Diagnostic Imaging Results Diagnostic Imaging Results: positive: Final report reviewed - EKG Results EKG Interpreted Independently: Yes EKG Findings: Sinus rhythm with nonspecific ST segment changes. No ST elevations. Core Measures - Anticipated LOS I expect patient to be DC'd or transferred within 96 hours.: Yes - Issues Hospital Issues and Management Plan: 76-year-old female presents with increasing confusion found to have COVID-19 and likely pneumonia. We will admit her for antibiotics and IV Decadron. - DVT/VTE - Prophylaxis VTE/DVT Device ordered at admit?: Yes VTE/DVT Prophylaxis med ordered at admit?: Yes
--- NOTE | 2021-08-29 21:50 | XRAY Report ---
PROCEDURE: Chest 1 View X-Ray INDICATIONS: covid + TECHNIQUE: One view of the chest was acquired. COMPARISON: 07/18/2017. FINDINGS: Surgical changes and devices: None. Lungs and pleura: No pleural effusions or pneumothorax. Patchy opacities noted in the left lung conc erning for pneumonia. Mediastinum: Mediastinal contours appear normal. Heart size is normal. Bones and chest wall: No suspicious bony lesions. Overlying soft tissues appear unremarkable. IMPRESSION: Left lung pneumonia. Reviewed by: Erin Villalta MD, PhD on 08/29/2021 9:48 PM PDT Approved by: Erin Villalta MD, PhD on 08/29/2021 9:48 PM PDT Station ID: [id number]
[2021-08-29] MEDS: LACTATED RINGERS 1,000 ML IV SCH (23:24)
[2021-08-29] MEDS: AZITHROMYCIN INJ 500 MG in SODIUM CHLORIDE 0.9% 250 ML IV SCH (23:25)
[2021-08-30] MEDS: SODIUM CHLORIDE FLUSH 0.9% 10 ML SYRINGE IVP SCH ×4 (05:09→23:10)
[2021-08-30 06:10] LABS: BASOPHILS % (AUTO) 0.2 %; EOSINOPHILS % (AUTO) 0.1 %; HCT - HEMATOCRIT 29.2 % (37.0-47.0); HGB - HEMOGLOBIN 9.6 g/dL (12.0-16.0); LYMPHOCYTES % (AUTO) 2.7 %; MEAN CORPUSCULAR HEMOGLOBIN 29.4 pg (27.0-31.0); MEAN CORPUSCULAR HGB CONC 32.9 g/dL (32.0-36.0); MEAN CORPUSCULAR VOLUME 89.3 fL (81.0-99.0); MEAN PLATELET VOLUME 9.8 fL (7.9-10.8); MONOCYTES % (AUTO) 5.9 %; NEUTROPHILS % (AUTO) 88.1 %; PLT - PLATELET COUNT 387 10^3/uL (130-450); RED BLOOD COUNT 3.27 10^6/uL (4.20-5.40); RED CELL DISTRIBUTION WIDTH 15.5 % (12.0-15.0)
[2021-08-30 06:22] LABS: ABNORMAL LYMPHS % (MANUAL) 0 %
[2021-08-30 06:27] LABS: ALBUMIN 3.4 g/dL (3.2-5.5); BILIRUBIN,DIRECT 0.2 mg/dL (0.1-0.5); BILIRUBIN,TOTAL 0.6 mg/dL (0.2-1.0); CALCIUM 8.9 mg/dL (8.5-10.3); CREATININE 1.2 mg/dL (0.4-1.0); MAGNESIUM 2.2 mg/dL (1.7-2.8); PHOSPHORUS 3.1 mg/dL (2.5-4.6); POTASSIUM 4.7 mmol/L (3.5-5.0); TOTAL PROTEIN 6.7 g/dL (6.7-8.2)
[2021-08-30 07:42] LABS: BAND NEUTROPHILS % (MANUAL) 2 %; LYMPHOCYTES # (MANUAL) 0.6 10^3/uL (1.5-3.5); LYMPHOCYTES % (MANUAL) 3 %; NEUTROPHILS # (MANUAL) 17.4 10^3/uL (1.5-6.6)
[2021-08-30 07:43] LABS: DIFFERENTIAL COMMENT MANUAL DIFFERENTIAL; PLATELET ESTIMATE, MANUAL NORMAL (130-450,000) (NORMAL); PLATELET MORPHOLOGY NORMAL APPEARANCE (NORMAL); RBC MORPHOLOGY (MULTIPLE) 1+ MICROCYTOSIS (NORMAL)
[2021-08-30] MEDS ORDERED: REMDESIVIR 100MG VIAL 200 MG in SODIUM CHLORIDE 0.9% 250 ML IV ONE (08:30)
[2021-08-30] MEDS: LACTATED RINGERS 1,000 ML IV SCH (09:14)
[2021-08-30] MEDS: INSULIN ASPART 300 UNIT/3 ML PEN SUBQ SCH ×4 (09:14→21:41)
[2021-08-30] MEDS: DEXAMETHASONE 4 MG/ML VIAL IVP SCH (09:15)
[2021-08-30] MEDS: guaiFENesin 600 MG TABLET PO SCH ×2 (09:16→21:42)
[2021-08-30] MEDS: ENOXAPARIN 40 MG/0.4 ML SYRINGE SUBQ SCH (09:16)
--- NOTE | 2021-08-30 11:09 | PROVIDER PROGRESS NOTE ---
Assessment/Plan - Problem List (1) Altered mental status Qualifiers: Altered mental status type: unspecified Qualified Code(s): R41.82 - Altered mental status, unspecified Assessment/Plan: 08-30 improved. pt is alert and oriented. pt had pneumonia and virus Covid [address] of the head showed no acute abnormalities. Her TSH is w ithin normal limits. we will continue antibiotics and IVF, and treat for Covid 19 (2) Pneumonia due to 2019 novel coronavirus Conclusion/Plan: 08-30 Patient had a low degree fever, now patient needed 4 L oxygen to have 93% oxygen saturation. WBC was elevated to 20 from 15 at admission. pt is sepsis. Her x-ray reveals left-sided pneumonia and she is Covid positive. It is unclear if this is a bacterial or just a viral pneumonia. She is vaccinated with [employer] & Benjamin. We will continue on ceftriaxone azithromycin empirically given her white count is elevated. continue IVF, We will also continue her on Decadron and remdesivir. Contact precautions. (3) DIAMOND (acute kidney injury) Conclusion/Plan: 08-30 improved. creatinine is 1.2 from 1.4 at the admission. elevated potassium and anion gap return to normal. Suspect is likely prerenal in injury secondary to volume depletion due to poor oral intake from her viral illness. We will continue intravenous IV fluid, Continue laboratory director (4) Hyperkalemia resolved. (5) Hypothyroidism Conclusion/Plan: Her TSH is within normal limits. We will continue home Synthroid. - Current Meds Current Meds: Current Medications Generic Name Dose Route Start Last Admin Trade Name Eliudq PRN Reason Stop Dose Admin Dexamethasone 6 mg 08/30/21 09:00 08/30/21 09:15 Dexamethasone 4 Mg/Ml Vial IVP 09/07/21 09:01 6 mg DAILY RENATE Administration Enoxaparin Sodium 40 mg 08/30/21 09:00 08/30/21 09:16 Enoxaparin 40 Mg/0.4 Ml Syringe SUBQ 40 mg DAILY RENATE Administration Guaifenesin 600 mg 08/30/21 09:00 08/30/21 09:16 Guaifenesin 600 Mg Tablet PO 600 mg BID RENATE Administration Lactated Ringer's 1,000 mls @ 100 mls/hr 08/29/21 22:00 08/30/21 09:14 Lr IV 08/30/21 17:59 100 mls/hr .Q10H RENATE Administration Azithromycin 500 mg/ Sodium 250 mls @ 250 mls/hr 08/29/21 22:00 08/30/21 00:31 Chloride IV 08/31/21 22:59 Infused Q24H RENATE Infusion Ceftriaxone Sodium 2 gm/ 100 mls @ 200 mls/hr 08/29/21 21:00 08/29/21 23:54 Sodium Chloride IV 09/02/21 21:29 Infused Q24H RENATE Infusion Insulin Aspart 1 - 9 unit 08/30/21 08:00 08/30/21 09:14 Insulin Aspart 300 Unit/3 Ml Pen SUBQ Not Given 0800,1200,1700,2100 RENATE Protocol Sodium Chloride 10 ml 08/30/21 01:00 08/30/21 09:16 Sodium Chloride Flush 0.9% 10 Ml Syringe IVP 10 ml 0100,0900,1700 RENATE Administration - Lab Result Fish Bone Diagrams: 08/30/21 05:58 08/30/21 05:58 - Additional Planning My Orders: My Active Orders 08/30/21 08:10 Blood Culture [CULTURE, BLOOD #1] [RM] Urgent 08/30/21 08:20 Blood Culture [CULTURE, BLOOD #2] [RM] Urgent 08/30/21 09:00 guaiFENesin [Mucinex] 600 mg PO BID 08/31/21 Evaluate and Treat OT [OT] Routine Evaluate and Treat PT [PT] Routine 08/31/21 05:00 CK- CREATINE KINASE [CHEM] DAILYLAB Subjective - Subjective Patient Reports: Feeling Better Objective Vital Signs: Vital Signs - 24 hr 08/29/21 08/29/21 08/29/21 19:24 19:57 20:05 Temperature 99.8 C H 37.7 C Heart Rate 82 75 74 Heart Rate [ Brachial] Respiratory 35 H 27 H 29 H Rate Blood Pressure 140/48 H 132/51 H 113/46 L Blood Pressure [Right Brachial artery] O2 Saturation 100 96 95 08/29/21 08/29/21 08/29/21 20:40 21:00 21:29 Temperature Heart Rate 78 71 Heart Rate [ Brachial] Respiratory 20 27 H 27 H Rate Blood Pressure 112/46 L 106/46 L Blood Pressure [Right Brachial artery] O2 Saturation 96 96 97 08/29/21 08/29/21 08/29/21 21:30 22:00 22:27 Temperature 38.0 C H Heart Rate 73 69 Heart Rate [ 80 Brachial] Respiratory 19 25 H 20 Rate Blood Pressure 123/58 L 126/50 L Blood Pressure 125/44 L [Right Brachial artery] O2 Saturation 96 95 95 08/30/21 08/30/21 08/30/21 02:30 05:27 08:07 Temperature 37.7 C 37.5 C 37.5 C Heart Rate Heart Rate [ 66 65 57 L Brachial] Respiratory 26 H 24 22 Rate Blood Pressure Blood Pressure 134/54 H 133/59 H 126/54 L [Right Brachial artery] O2 Saturation 97 95 93 Oxygen O2 Source Nasal cannula Oxygen Flow Rate 4 I&O (Last 24 Hrs): Intake and Output Totals x24h 08/28/21 08/29/21 08/30/21 23:59 23:59 23:59 Intake Total 100 1313.333 Output Total 0 650 Balance 100 663.333 General: Alert, Cooperative, No acute distress HEENT: Atraumatic Neck: Supple Neuro: Alert, Non Focal, Oriented Times 3 Cardiovascular: Regular rate, Normal S1, Normal S2 Respiratory: Chest non-tender, No respiratory distress Abdomen: Normal bowel sounds, Soft Extremities: Normal pulses - Results Results: Laboratory Results WBC 20.0 x10^3/uL (4.8-10.8) H 08/30/21 05:58 RBC 3.27 10^6/uL (4.20-5.40) L 08/30/21 05:58 Hgb 9.6 g/dL (12.0-16.0) L 08/30/21 05:58 Hct 29.2 % (37.0-47.0) L 08/30/21 05:58 MCV 89.3 fL (81.0-99.0) 08/30/21 05:58 MCH 29.4 pg (27.0-31.0) 08/30/21 05:58 MCHC 32.9 g/dL (32.0-36.0) 08/30/21 05:58 RDW 15.5 % (12.0-15.0) H 08/30/21 05:58 Plt Count 387 10^3/uL (130-450) 08/30/21 05:58 MPV 9.8 fL (7.9-10.8) 08/30/21 05:58 Neut # (Auto) Not Reportable 08/30/21 05:58 Lymph # (Auto) Not Reportable 08/30/21 05:58 [place] # (Auto) Not Reportable 08/30/21 05:58 Eos # (Auto) Not Reportable 08/30/21 05:58 Baso # (Auto) Not Reportable 08/30/21 05:58 Absolute Nucleated RBC Not Reportable 08/30/21 05:58 Total Counted 100 08/30/21 05:58 Band Neuts % (Manual) 2 % (0-10) 08/30/21 05:58 Abnorm Lymph % (Manual) 0 % 08/30/21 05:58 Nucleated RBC % Not Reportable 08/30/21 05:58 Neutrophils # (Manual) 17.4 10^3/uL (1.5-6.6) H 08/30/21 05:58 Lymphocytes # (Manual) 0.6 10^3/uL (1.5-3.5) L 08/30/21 05:58 Monocytes # (Manual) 2.0 10^3/uL (0.0-1.0) H 08/30/21 05:58 Eosinophils # (Manual) 0.0 10^3/uL (0-0.7) 08/30/21 05:58 Basophils # (Manual) 0.0 10^3/uL (0-0.1) 08/30/21 05:58 Differential Comment MANUAL DIFFERENTIAL 08/30/21 05:58 Platelet Estimate NORMAL (130-450,000) (NORMAL) 08/30/21 05:58 Platelet Morphology NORMAL APPEARANCE (NORMAL) 08/30/21 05:58 RBC Morph Micro Appear 1+ MICROCYTOSIS (NORMAL) 08/30/21 05:58 Sodium 140 mmol/L (135-145) 08/30/21 05:58 Potassium 4.7 mmol/L (3.5-5.0) 08/30/21 05:58 Chloride 108 mmol/L (101-111) 08/30/21 05:58 Carbon Dioxide 20 mmol/L (21-32) L 08/30/21 05:58 Anion Gap 12.0 (6-13) 08/30/21 05:58 BUN 50 mg/dL (6-20) H 08/30/21 05:58 Creatinine 1.2 mg/dL (0.4-1.0) H 08/30/21 05:58 Estimated GFR (MDRD) 44 (>89) L 08/30/21 05:58 Glucose 147 mg/dL (70-100) H 08/30/21 05:58 Calcium 8.9 mg/dL (8.5-10.3) 08/30/21 05:58 Phosphorus 3.1 mg/dL (2.5-4.6) 08/30/21 05:58 Magnesium 2.2 mg/dL (1.7-2.8) 08/30/21 05:58 Total Bilirubin 0.6 mg/dL (0.2-1.0) 08/30/21 05:58 Direct Bilirubin 0.2 mg/dL (0.1-0.5) 08/30/21 05:58 AST 69 IU/L (10-42) H 08/30/21 05:58 ALT 49 IU/L (10-60) 08/30/21 05:58 Alkaline Phosphatase 70 IU/L (42-121) 08/30/21 05:58 Total Creatine Kinase 739 IU/L (22-269) H 08/30/21 08:10 Total Protein 6.7 g/dL (6.7-8.2) 08/30/21 05:58 Albumin 3.4 g/dL (3.2-5.5) 08/30/21 05:58 Globulin 3.3 g/dL (2.1-4.2) 08/30/21 05:58 Albumin/Globulin Ratio 1.0 (1.0-2.2) 08/29/21 19:30 Lipase 50 U/L (22-51) 08/29/21 19:30 TSH 1.14 uIU/mL (0.34-5.60) 08/29/21 19:30 Urine Color YELLOW 08/29/21 19:50 Urine Clarity CLEAR (CLEAR) 08/29/21 19:50 Urine pH 6.0 PH (5.0-7.5) 08/29/21 19:50 Ur Specific [place] 1.020 (1.002-1.030) 08/29/21 19:50 Urine Protein TRACE mg/dL (NEGATIVE) 08/29/21 19:50 Urine Glucose (UA) NEGATIVE mg/dL (NEGATIVE) 08/29/21 19:50 Urine Ketones 15 mg/dL (NEGATIVE) H 08/29/21 19:50 Urine Occult Blood TRACE-INTA (NEGATIVE) 08/29/21 19:50 Urine Nitrite NEGATIVE (NEGATIVE) 08/29/21 19:50 Urine Bilirubin NEGATIVE (NEGATIVE) 08/29/21 19:50 Urine Urobilinogen 0.2 (NORMAL) E.U./dL (NORMAL) 08/29/21 19:50 Ur Leukocyte Esterase NEGATIVE (NEGATIVE) 08/29/21 19:50 Ur Microscopic Review NOT INDICATED 08/29/21 19:50 Urine Culture Comments NOT INDICATED 08/29/21 19:50 Nasal Adenovirus (PCR) NOT DETECTED 08/29/21 19:40 Nasal B. parapertussis DNA (PCR) NOT DETECTED 08/29/21 19:40 Nasal Coronavir 229E PCR NOT DETECTED 08/29/21 19:40 Nasal Coronavir HKU1 PCR NOT DETECTED 08/29/21 19:40 Nasal Coronavir NL63 PCR NOT DETECTED 08/29/21 19:40 Nasal Coronavir OC43 PCR NOT DETECTED 08/29/21 19:40 Nasal Enterovir/Rhinovir PCR NOT DETECTED 08/29/21 19:40 Nasal Influenza B PCR NOT DETECTED 08/29/21 19:40 Nasal Influenza A PCR NOT DETECTED 08/29/21 19:40 Nasal Parainfluen 1 PCR NOT DETECTED 08/29/21 19:40 Nasal Parainfluen 2 PCR NOT DETECTED 08/29/21 19:40 Nasal Parainfluen 3 PCR NOT DETECTED 08/29/21 19:40 Nasal Parainfluen 4 PCR NOT DETECTED 08/29/21 19:40 Nasal RSV (PCR) NOT DETECTED 08/29/21 19:40 Nasal B.pertussis DNA PCR NOT DETECTED 08/29/21 19:40 Nasal C.pneumoniae (PCR) NOT DETECTED 08/29/21 19:40 [place] Human Metapneumo PCR NOT DETECTED 08/29/21 19:40 Nasal M.pneumoniae (PCR) NOT DETECTED 08/29/21 19:40 Nasal SARS-CoV-2 (PCR) DETECTED A 08/29/21 19:40 Salicylates < 6.0 mg/dL 08/29/21 19:30 Urine Opiates Screen POSITIVE (NEGATIVE) H 08/29/21 19:50 Ur Oxycodone Screen POSITIVE (NEGATIVE) H 08/29/21 19:50 Urine Methadone Screen NEGATIVE (NEGATIVE) 08/29/21 19:50 Ur Propoxyphene Screen NEGATIVE (NEGATIVE) 08/29/21 19:50 Acetaminophen < 10 ug/mL (10-30) L 08/29/21 19:30 Ur Barbiturates Screen NEGATIVE (NEGATIVE) 08/29/21 19:50 Ur Tricyclics Screen NEGATIVE (NEGATIVE) 08/29/21 19:50 Ur Phencyclidine Scrn NEGATIVE (NEGATIVE) 08/29/21 19:50 Ur Amphetamine Screen NEGATIVE (NEGATIVE) 08/29/21 19:50 U Methamphetamines Scrn NEGATIVE (NEGATIVE) 08/29/21 19:50 U Benzodiazepines Scrn NEGATIVE (NEGATIVE) 08/29/21 19:50 Urine Cocaine Screen NEGATIVE (NEGATIVE) 08/29/21 19:50 U Cannabinoids Screen NEGATIVE (NEGATIVE) 08/29/21 19:50 Ethyl Alcohol < 5.0 mg/dL 08/29/21 19:30 - Procedures Procedures: Procedures REPLACEMENT OF LEFT LENS WITH SYNTH SUB, PERC APPROACH (04/02/17) REPLACEMENT OF RIGHT LENS WITH SYNTH SUB, PERC APPROACH (03/12/17) Sepsis Event Note (H) - Evaluation Current Stage of Sepsis: Sepsis Possible source of Sepsis: positive: Pulmonary - Sepsis Criteria Sepsis Criteria: Recorded Temperature greater than 38.3C or Less than 36C, WBC count greater than 12,000 or less than 4000 ABX Reporting Has patient been on IV antibiotics over the past 48 hours?: Yes Current Medications - Current Medications Current Medications: Active Medications Acetaminophen (Acetaminophen 325 Mg Tablet) 650 mg PO Q4HR PRN PRN Reason: Pain 1 to 4 Dexamethasone (Dexamethasone 4 Mg/Ml Vial) 6 mg IVP DAILY [facility] Stop: 09/07/21 09:01 Last Admin: 08/30/21 09:15 Dose: 6 mg Documented by: Enoxaparin Sodium (Enoxaparin 40 Mg/0.4 Ml Syringe) 40 mg SUBQ DAILY [facility] Last Admin: 08/30/21 09:16 Dose: 40 mg Documented by: Guaifenesin (Guaifenesin 600 Mg Tablet) 600 mg PO BID [facility] Last Admin: 08/30/21 09:16 Dose: 600 mg Documented by: Lactated Ringer's (Lr) 1,000 mls @ 100 mls/hr IV .Q10H [facility] Stop: 08/30/21 17:59 Last Admin: 08/30/21 09:14 Dose: 100 mls/hr Documented by: Azithromycin 500 mg/ Sodium (Chloride) 250 mls @ 250 mls/hr IV Q24H [facility] Stop: 08/31/21 22:59 Last Infusion: 08/30/21 00:31 Dose: Infused Documented by: Ceftriaxone Sodium 2 gm/ (Sodium Chloride) 100 mls @ 200 mls/hr IV Q24H [facility] Stop: 09/02/21 21:29 Last Infusion: 08/29/21 23:54 Dose: Infused Documented by: Remdesivir 100 mg/ Sodium (Chloride) 100 mls @ 200 mls/hr IV DAILY [facility] Stop: 09/03/21 09:29 Insulin Aspart (Insulin Aspart 300 Unit/3 Ml Pen) 1 - 9 unit SUBQ 0800,1200,1700,2100 [facility]; Protocol Last Admin: 08/30/21 09:14 Dose: Not Given Documented by: Ondansetron HCl (Ondansetron Odt 4 Mg Tablet) 4 mg TL Q6HR PRN PRN Reason: Nausea / Vomiting Ondansetron HCl (Ondansetron 4 Mg/2 Ml Vial) 4 mg IVP Q6HR PRN PRN Reason: Nausea / Vomiting Sodium Chloride (Sodium Chloride Flush 0.9% 10 Ml Syringe) 10 ml IVP PRN PRN PRN Reason: NEEDED PER PROVIDER ORDERS Sodium Chloride (Sodium Chloride Flush 0.9% 10 Ml Syringe) 10 ml IVP 0100,0900,1700 [facility] Last Admin: 08/30/21 09:16 Dose: 10 ml Documented by: Atenolol 75 mg PO DAILY 06/28/13 Atorvastatin Calcium [Lipitor] 40 mg PO HS 06/28/13 Fluticasone [Flonase] 1 sprays TRAVIS BID 06/28/13 Lipase/Protease/Amylase [Zenpep Dr 10,000 Units Capsule] 4 tab PO AC 06/28/13 Mometasone 220 Mcg [Asmanex 220 Mcg] 220 mcg IH BID 06/28/13 Ondansetron [Ondansetron Odt] 4 mg PO HS 06/28/13 Salmeterol [Serevent] 1 puffs INH BID 06/28/13 Levothyroxine [Synthroid] 112 mcg PO DAILY 04/03/15 Gabapentin [Neurontin] 100 PO HS 10/28/20 Spironolactone [Aldactone] 75 mg 10/28/20 Celecoxib [Celebrex] 200 mg PO BID 08/30/21 Lipase/Protease/Amylase [[place] 12,000 Units Capsule] 08/30/21 Montelukast [Singulair] 10 mg PO DAILY 08/30/21 Oxycodone HCl/Acetaminophen [Percocet 5-325 mg Tablet] 1 tab PO Q6H PRN 08/30/21
[2021-08-30] MEDS ORDERED: ALBUTEROL 1 PUFF INH PRN (13:28)
--- NOTE | 2021-08-30 14:01 | PHARMACY PROGRESS NOTE ---
- Best Possible Medication History Admit Date and Time: 08/29/212132 Processed by: Pharmacy Medication History completed: Yes Patient Interview: Pt unable to participate Secondary Source(s): Insurance records (PATIENT DOES NOT KNOW WHAT HER HOME M EDICATIONS ARE. MED REC COMPLETED COMPLETELY ON INSURANCE AND RETAIL PHARMACY RECORDS ) As the person ultimately responsible for medication therapy, providers are able to order a medication from an existing home medication list in [facility] via the "Reconcile Routine" prior to Confirmation of that medication by application support lead. Such practice is discouraged except when the physician, in their clinical judgment, deems that a medical need exists for a medication without regard to previous use.
[2021-08-30] MEDS ORDERED: oxyCODONE/ACET 5/325 Prepack 4 PO PRN (16:25)
[2021-08-30] MEDS ORDERED: oxyCODONE 5 MG TABLET PO PRN (16:35)
[2021-08-30] MEDS: LIPASE/PROTEASE/AMYLASE CAPSULE PO SCH (17:34)
[2021-08-30] MEDS ORDERED: ATORVASTATIN 40 MG TABLET PO SCH (21:00)
[2021-08-30] MEDS ORDERED: cefTRIAXone 1 GM VIAL ONE (21:25)
[2021-08-30] MEDS: cefTRIAXone 2 GM in SODIUM CHLORIDE 0.9% MINIBAG 100 ML IV SCH (21:34)
[2021-08-30] MEDS: GABAPENTIN 100 MG CAPSULE PO SCH (21:42)
[2021-08-30] MEDS: AZITHROMYCIN INJ 500 MG in SODIUM CHLORIDE 0.9% 250 ML IV SCH (23:10)
[2021-08-31 05:48] LABS: BASOPHILS # (AUTO) 0.1 10^3/uL (0.0-0.1); BASOPHILS % (AUTO) 0.3 %; HCT - HEMATOCRIT 26.6 % (37.0-47.0); HGB - HEMOGLOBIN 8.5 g/dL (12.0-16.0); LYMPHOCYTES # (AUTO) 0.8 10^3/uL (1.5-3.5); MEAN CORPUSCULAR HEMOGLOBIN 28.5 pg (27.0-31.0); MEAN CORPUSCULAR VOLUME 89.3 fL (81.0-99.0); MEAN PLATELET VOLUME 10.2 fL (7.9-10.8); MONOCYTES # (AUTO) 1.3 10^3/uL (0.0-1.0); MONOCYTES % (AUTO) 6.9 %; NEUTROPHILS # (AUTO) 16.6 10^3/uL (1.5-6.6); NEUTROPHILS % (AUTO) 87.4 %; PLT - PLATELET COUNT 375 10^3/uL (130-450); RED BLOOD COUNT 2.98 10^6/uL (4.20-5.40); RED CELL DISTRIBUTION WIDTH 15.9 % (12.0-15.0)
[2021-08-31 06:04] LABS: ALBUMIN 2.8 g/dL (3.2-5.5); BILIRUBIN,DIRECT 0.1 mg/dL (0.1-0.5); BILIRUBIN,TOTAL 0.7 mg/dL (0.2-1.0); CALCIUM 8.7 mg/dL (8.5-10.3); MAGNESIUM 2.3 mg/dL (1.7-2.8); PHOSPHORUS 3.1 mg/dL (2.5-4.6); POTASSIUM 4.7 mmol/L (3.5-5.0); TOTAL PROTEIN 6.2 g/dL (6.7-8.2)
[2021-08-31 08:12] LABS: ABSOLUTE RETICS # AUTO 0.014 10^6/uL (0.020-0.110); RETICULOCYTE COUNT % (AUTO) 0.47 % (0.5-2.3)
[2021-08-31] MEDS: MULTIVITAMIN W/MINERALS TABLET PO SCH (08:14)
[2021-08-31] MEDS: TAMSULOSIN 0.4 MG CAPSULE PO SCH (08:15)
[2021-08-31] MEDS: LIPASE/PROTEASE/AMYLASE CAPSULE PO SCH ×3 (08:15→17:25)
[2021-08-31] MEDS: guaiFENesin 600 MG TABLET PO SCH ×2 (08:16→21:07)
[2021-08-31] MEDS: CHOLECALCIFEROL 25 MCG TABLET PO SCH (08:16)
[2021-08-31] MEDS: MONTELUKAST 10 MG TABLET PO SCH (08:17)
[2021-08-31] MEDS: DEXAMETHASONE 4 MG/ML VIAL IVP SCH (08:17)
[2021-08-31] MEDS: polyethylene glycoL 3350 17 GM PACKET PO SCH (08:17)
[2021-08-31] MEDS: ENOXAPARIN 40 MG/0.4 ML SYRINGE SUBQ SCH (08:17)
[2021-08-31 08:36] LABS: % IRON SATURATION 14 % (20-50); IRON 27 ug/dL (28-170); TOTAL IRON BINDING CAPACITY 192 ug/dL (250-450); TRANSFERRIN 137 mg/dL (192-382)
[2021-08-31 08:47] LABS: FERRITIN 330.6 ng/mL (11.0-306.8)
[2021-08-31] MEDS ORDERED: LEVOTHYROXINE 112 MCG TABLET PO SCH (09:00)
[2021-08-31] MEDS: INSULIN ASPART 300 UNIT/3 ML PEN SUBQ SCH ×4 (09:10→21:09)
[2021-08-31] MEDS: REMDESIVIR 100MG VIAL 100 MG in SODIUM CHLORIDE 0.9% 100ML 100 ML IV SCH (10:11)
[2021-08-31] MEDS: SODIUM CHLORIDE FLUSH 0.9% 10 ML SYRINGE IVP SCH ×2 (10:12→17:25)
[2021-08-31] MEDS: FERROUS SULFATE 325 MG TABLET PO SCH (12:45)
--- NOTE | 2021-08-31 14:10 | PROVIDER PROGRESS NOTE ---
Assessment/Plan - Problem List (1) Altered mental status Qualifiers: Altered mental status type: unspecified Qualified Code(s): R41.82 - Altered mental status, unspecified Assessment/Plan: 08-31 resolved. pt is alert and oriented plus 4. discussed and updated pt's conditions with pt's , and her family/friend ID doctor per pt's family let to discuss. 08-30 improved. pt is alert and oriented. pt had pneumonia and virus Covid [address] of the head showed no acute abnormalities. Her TSH is within normal limits. we will continue antibiotics and IVF, and treat for Covid 19 (2) Pneumonia due to 2019 novel coronavirus Conclusion/Plan: 08-31 stable. WBC is slight educed. pt has 90-93% sats on 1-2 liter of O2, no acute respiratory distress. sputum culture is pending. blood culture is negative for bacteremia. continue antibiotics and Covid 19 treatment, add probiotics. 08-30 Patient had a low degree fever, now patient needed 4 L oxygen to have 93% oxygen saturation. WBC was elevated to 20 from 15 at admission. pt is sepsis. Her x-ray reveals left-sided pneumonia and she is Covid positive. It is unclear if this is a bacterial or just a viral pneumonia. She is vaccinated with RECUPYL. We will continue on ceftriaxone azithromycin empirically given her white count is elevated. continue IVF, We will also continue her on Decadron and remdesivir. Contact precautions. (3) DIAMOND (acute kidney injury) Conclusion/Plan: 08-31 significant improved. creatinine is 1.0. continue lab monitor 08-30 improved. creatinine is 1.2 from 1.4 at the admission. elevated potassium and anion gap return to normal. Suspect is likely prerenal in injury secondary to volume depletion due to poor oral intake from her viral illness. 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 (5) Hypothyroidism Conclusion/Plan: Her TSH is within normal limits. We will continue home Synthroid. (6) bradycardia pt report she has hx of chronic bradycardia. she denies dizziness, chest pain or other symptoms. we will hold home Atenolol, continue tele monitor (7)asthma pt has hx of asthma, pt is on steroid treatment for Covid 19, also breath treatment now. - Current Meds Current Meds: Current Medications Generic Name Dose Route Start Last Admin Trade Name Maryann PRN Reason Stop Dose Admin Lipase/Protease/Amylase 4 cap 08/30/21 17:00 08/31/21 12:45 Lipase/Protease/Amylase Capsule PO 4 cap TIDWM RENATE Administration Cholecalciferol 50 mcg 08/31/21 09:00 08/31/21 08:16 Cholecalciferol 25 Mcg Tablet PO 50 mcg DAILY RENATE Administration Enoxaparin Sodium 40 mg 08/30/21 09:00 08/31/21 08:17 Enoxaparin 40 Mg/0.4 Ml Syringe SUBQ 40 mg DAILY RENATE Administration Ferrous Sulfate 325 mg 08/31/21 11:00 08/31/21 12:45 Ferrous Sulfate 325 Mg Tablet PO 325 mg DAILYWM RENATE Administration Gabapentin 200 mg 08/30/21 21:00 08/30/21 21:42 Gabapentin 100 Mg Capsule PO 200 mg HS RENATE Administration Guaifenesin 600 mg 08/30/21 09:00 08/31/21 08:16 Guaifenesin 600 Mg Tablet PO 600 mg BID RENATE Administration Azithromycin 500 mg/ Sodium 250 mls @ 250 mls/hr 08/29/21 22:00 08/31/21 00:10 Chloride IV 08/31/21 22:59 Infused Q24H RENATE Infusion Remdesivir 100 mg/ Sodium 100 mls @ 200 mls/hr 08/31/21 09:00 08/31/21 10:45 Chloride IV 09/03/21 09:29 Infused DAILY RENATE Infusion Ceftriaxone Sodium 2 gm/ 100 mls @ 200 mls/hr 08/30/21 21:00 08/30/21 22:04 Sodium Chloride IV 09/02/21 21:29 Infused Q24H RENATE Infusion Insulin Aspart 1 - 9 unit 08/30/21 08:00 08/31/21 11:18 Insulin Aspart 300 Unit/3 Ml Pen SUBQ 1 unit 0800,1200,1700,2100 RENATE Administration Protocol Montelukast Sodium 10 mg 08/31/21 09:00 08/31/21 08:17 Montelukast 10 Mg Tablet PO 10 mg DAILY RENATE Administration Multivitamins/Minerals 1 tab 08/31/21 08:00 08/31/21 08:14 Multivitamin W/Minerals Tablet PO 1 tab DAILYWM RENATE Administration Polyethylene Glycol 17 gm 08/31/21 09:00 08/31/21 08:17 Polyethylene Glycol 3350 17 Gm Packet PO 17 gm DAILY RENATE Administration Sodium Chloride 10 ml 08/29/21 21:33 08/31/21 10:11 Sodium Chloride Flush 0.9% 10 Ml Syringe IVP 20 ml PRN PRN Administration NEEDED PER PROVIDER ORDERS Sodium Chloride 10 ml 08/30/21 01:00 08/31/21 10:12 Sodium Chloride Flush 0.9% 10 Ml Syringe IVP 10 ml 0100,0900,1700 RENATE Administration Tamsulosin HCl 0.4 mg 08/31/21 09:00 08/31/21 08:15 Tamsulosin 0.4 Mg Capsule PO 0.4 mg DAILY RENATE Administration - Lab Result Fish Bone Diagrams: 08/31/21 05:32 08/31/21 05:32 - Additional Planning My Orders: My Active Orders 08/30/21 13:28 Mdi: Albuterol 2 puffs INH Q4HR PRN 08/30/21 13:29 Nebulizer/MDI Tx. [RC] .q4prn 08/30/21 13:34 Chapa Insertion [RC] QSHIFT 08/30/21 16:35 oxyCODONE [Roxicodone] 5 mg PO Q4HR PRN 08/30/21 17:00 Lipase/Protease/Amylase [Pancrelipase Dr 5,000/17,000/27,000 Correction] 4 cap PO TIDWM 08/30/21 21:00 Gabapentin [Neurontin] 200 mg PO HS 08/31/21 CUL, RESPIRATORY [RM] Urgent 08/31/21 08:00 Multivitamin W/Minerals [Theragran M] 1 tab PO DAILYWM 08/31/21 09:00 Cholecalciferol [Vitamin D3] 50 mcg PO DAILY Montelukast [Singulair] 10 mg PO DAILY Tamsulosin [Flomax] 0.4 mg PO DAILY 08/31/21 10:23 EKG - Electrocardiogram [RC] .ONCE 08/31/21 11:00 Ferrous Sulfate [Feosol] 325 mg PO DAILYWM 08/31/21 17:00 Saccharomyces Boulardii [Florastor] 250 mg PO BIDWM 08/31/21 21:00 Atorvastatin [Lipitor] 60 mg PO QPM 09/01/21 07:00 Levothyroxine [Synthroid] 112 mcg PO QDAC Subjective - Subjective Patient Reports: Feeling Better Objective Vital Signs: Vital Signs - 24 hr 08/30/21 08/30/21 08/30/21 17:22 21:00 21:45 Temperature 36.8 C 37.3 C Heart Rate [ 55 L 47 L 50 L Brachial] Respiratory 19 20 18 Rate Blood Pressure 133/55 H 135/44 H [Right Brachial artery] O2 Saturation 93 95 94 08/30/21 08/31/21 08/31/21 23:18 04:25 08:05 Temperature 37.1 C 37 C 36.5 C Heart Rate [ 49 L 47 L 44 L Brachial] Respiratory 19 20 20 Rate Blood Pressure 129/50 L 145/54 H 142/48 H [Right Brachial artery] O2 Saturation 94 93 91 L 08/31/21 11:24 Temperature 36.7 C Heart Rate [ 49 L Brachial] Respiratory 22 Rate Blood Pressure 156/51 H [Right Brachial artery] O2 Saturation 90 L Oxygen O2 Source Nasal cannula Oxygen Flow Rate 4 I&O (Last 24 Hrs): Intake and Output Totals x24h 08/29/21 08/30/21 08/31/21 23:59 23:59 23:59 Intake Total 100 2893.333 1070 Output Total 0 1600 850 Balance 100 1293.333 220 General: Alert, Oriented x3, Cooperative, No acute distress HEENT: Atraumatic Neck: Supple Lymphatic: no adenopathy Neuro: Alert, Non Focal, Oriented Times 3 Cardiovascular: Regular rate, Normal S1, Normal S2 Respiratory: Chest non-tender, No respiratory distress Abdomen: Normal bowel sounds, Soft Extremities: Normal pulses - Results Results: Laboratory Results WBC 19.0 x10^3/uL (4.8-10.8) H 08/31/21 05:32 RBC 3.00 10^6/uL (4.20-5.40) L 08/31/21 08:06 Hgb 8.5 g/dL (12.0-16.0) L 08/31/21 05:32 Hct 26.6 % (37.0-47.0) L 08/31/21 05:32 MCV 89.3 fL (81.0-99.0) 08/31/21 05:32 MCH 28.5 pg (27.0-31.0) 08/31/21 05:32 MCHC 32.0 g/dL (32.0-36.0) 08/31/21 05:32 RDW 15.9 % (12.0-15.0) H 08/31/21 05:32 Plt Count 375 10^3/uL (130-450) 08/31/21 05:32 MPV 10.2 fL (7.9-10.8) 08/31/21 05:32 Reticulocyte % (Auto) 0.47 % (0.5-2.3) L 08/31/21 08:06 Neut # (Auto) 16.6 10^3/uL (1.5-6.6) H 08/31/21 05:32 Lymph # (Auto) 0.8 10^3/uL (1.5-3.5) L 08/31/21 05:32 Bent # (Auto) 1.3 10^3/uL (0.0-1.0) H 08/31/21 05:32 Eos # (Auto) 0.0 10^3/uL (0.0-0.7) 08/31/21 05:32 Baso # (Auto) 0.1 10^3/uL (0.0-0.1) 08/31/21 05:32 Absolute Nucleated RBC 0.00 x10^3/uL 08/31/21 05:32 Total Counted 100 08/30/21 05:58 Band Neuts % (Manual) 2 % (0-10) 08/30/21 05:58 Abnorm Lymph % (Manual) 0 % 08/30/21 05:58 Nucleated RBC % 0.0 /100WBC 08/31/21 05:32 Neutrophils # (Manual) 17.4 10^3/uL (1.5-6.6) H 08/30/21 05:58 Lymphocytes # (Manual) 0.6 10^3/uL (1.5-3.5) L 08/30/21 05:58 Monocytes # (Manual) 2.0 10^3/uL (0.0-1.0) H 08/30/21 05:58 Eosinophils # (Manual) 0.0 10^3/uL (0-0.7) 08/30/21 05:58 Basophils # (Manual) 0.0 10^3/uL (0-0.1) 08/30/21 05:58 Differential Comment MANUAL DIFFERENTIAL 08/30/21 05:58 Platelet Estimate NORMAL (130-450,000) (NORMAL) 08/30/21 05:58 Platelet Morphology NORMAL APPEARANCE (NORMAL) 08/30/21 05:58 RBC Morph Micro Appear 1+ MICROCYTOSIS (NORMAL) 08/30/21 05:58 Absolute Retic 0.014 10^6/uL (0.020-0.110) L 08/31/21 08:06 Sodium 141 mmol/L (135-145) 08/31/21 05:32 Potassium 4.7 mmol/L (3.5-5.0) 08/31/21 05:32 Chloride 108 mmol/L (101-111) 08/31/21 05:32 Carbon Dioxide 22 mmol/L (21-32) 08/31/21 05:32 Anion Gap 11.0 (6-13) 08/31/21 05:32 BUN 41 mg/dL (6-20) H 08/31/21 05:32 Creatinine 1.0 mg/dL (0.4-1.0) 08/31/21 05:32 Estimated GFR (MDRD) 54 (>89) L 08/31/21 05:32 Glucose 137 mg/dL (70-100) H 08/31/21 05:32 Calcium 8.7 mg/dL (8.5-10.3) 08/31/21 05:32 Phosphorus 3.1 mg/dL (2.5-4.6) 08/31/21 05:32 Magnesium 2.3 mg/dL (1.7-2.8) 08/31/21 05:32 Iron 27 ug/dL (28-170) L 08/31/21 08:06 TIBC 192 ug/dL (250-450) L 08/31/21 08:06 % Saturation 14 % (20-50) L 08/31/21 08:06 Transferrin 137 mg/dL (192-382) L 08/31/21 08:06 Ferritin 330.6 ng/mL (11.0-306.8) H 08/31/21 08:06 Total Bilirubin 0.7 mg/dL (0.2-1.0) 08/31/21 05:32 Direct Bilirubin 0.1 mg/dL (0.1-0.5) 08/31/21 05:32 AST 43 IU/L (10-42) H 08/31/21 05:32 ALT 42 IU/L (10-60) 08/31/21 05:32 Alkaline Phosphatase 65 IU/L (42-121) 08/31/21 05:32 Lactate Dehydrogenase 214 IU/L (91-225) 08/31/21 08:06 Total Creatine Kinase 249 IU/L (22-269) 08/31/21 05:32 Total Protein 6.2 g/dL (6.7-8.2) L 08/31/21 05:32 Albumin 2.8 g/dL (3.2-5.5) L 08/31/21 05:32 Globulin 3.4 g/dL (2.1-4.2) 08/31/21 05:32 Albumin/Globulin Ratio 1.0 (1.0-2.2) 08/29/21 19:30 Lipase 50 U/L (22-51) 08/29/21 19:30 Vitamin B12 1641 pg/mL (180-914) H 08/31/21 08:06 TSH 1.14 uIU/mL (0.34-5.60) 08/29/21 19:30 Urine Color YELLOW 08/29/21 19:50 Urine Clarity CLEAR (CLEAR) 08/29/21 19:50 Urine pH 6.0 PH (5.0-7.5) 08/29/21 19:50 Ur Specific [place] 1.020 (1.002-1.030) 08/29/21 19:50 Urine Protein TRACE mg/dL (NEGATIVE) 08/29/21 19:50 Urine Glucose (UA) NEGATIVE mg/dL (NEGATIVE) 08/29/21 19:50 Urine Ketones 15 mg/dL (NEGATIVE) H 08/29/21 19:50 Urine Occult Blood TRACE-INTA (NEGATIVE) 08/29/21 19:50 Urine Nitrite NEGATIVE (NEGATIVE) 08/29/21 19:50 Urine Bilirubin NEGATIVE (NEGATIVE) 08/29/21 19:50 Urine Urobilinogen 0.2 (NORMAL) E.U./dL (NORMAL) 08/29/21 19:50 Ur Leukocyte Esterase NEGATIVE (NEGATIVE) 08/29/21 19:50 Ur Microscopic Review NOT INDICATED 08/29/21 19:50 Urine Culture Comments NOT INDICATED 08/29/21 19:50 Nasal Adenovirus (PCR) NOT DETECTED 08/29/21 19:40 Nasal B. parapertussis DNA (PCR) NOT DETECTED 08/29/21 19:40 Nasal Coronavir 229E PCR NOT DETECTED 10 19:40 Nasal Coronavir HKU1 PCR NOT DETECTED 08/29/21 19:40 Nasal Coronavir NL63 PCR NOT DETECTED 08/29/21 19:40 Nasal Coronavir OC43 PCR NOT DETECTED 08/29/21 19:40 Nasal Enterovir/Rhinovir PCR NOT DETECTED 08/29/21 19:40 Nasal Influenza B PCR NOT DETECTED 08/29/21 19:40 Nasal Influenza A PCR NOT DETECTED 08/29/21 19:40 Nasal Parainfluen 1 PCR NOT DETECTED 08/29/21 19:40 Nasal Parainfluen 2 PCR NOT DETECTED 08/29/21 19:40 Nasal Parainfluen 3 PCR NOT DETECTED 08/29/21 19:40 Nasal Parainfluen 4 PCR NOT DETECTED 08/29/21 19:40 Nasal RSV (PCR) NOT DETECTED 08/29/21 19:40 Nasal B.pertussis DNA PCR NOT DETECTED 08/29/21 19:40 Nasal C.pneumoniae (PCR) NOT DETECTED 08/29/21 19:40 Josafat Human Metapneumo PCR NOT DETECTED 08/29/21 19:40 Nasal M.pneumoniae (PCR) NOT DETECTED 08/29/21 19:40 Nasal SARS-CoV-2 (PCR) DETECTED A 08/29/21 19:40 Salicylates < 6.0 mg/dL 08/29/21 19:30 Urine Opiates Screen POSITIVE (NEGATIVE) H 08/29/21 19:50 Ur Oxycodone Screen POSITIVE (NEGATIVE) H 08/29/21 19:50 Urine Methadone Screen NEGATIVE (NEGATIVE) 08/29/21 19:50 Ur Propoxyphene Screen NEGATIVE (NEGATIVE) 08/29/21 19:50 Acetaminophen < 10 ug/mL (10-30) L 08/29/21 19:30 Ur Barbiturates Screen NEGATIVE (NEGATIVE) 08/29/21 19:50 Ur Tricyclics Screen NEGATIVE (NEGATIVE) 08/29/21 19:50 Ur Phencyclidine Scrn NEGATIVE (NEGATIVE) 08/29/21 19:50 Ur Amphetamine Screen NEGATIVE (NEGATIVE) 08/29/21 19:50 U Methamphetamines Scrn NEGATIVE (NEGATIVE) 08/29/21 19:50 U Benzodiazepines Scrn NEGATIVE (NEGATIVE) 08/29/21 19:50 Urine Cocaine Screen NEGATIVE (NEGATIVE) 08/29/21 19:50 U Cannabinoids Screen NEGATIVE (NEGATIVE) 08/29/21 19:50 Ethyl Alcohol < 5.0 mg/dL 08/29/21 19:30 - Procedures Procedures: Procedures REPLACEMENT OF LEFT LENS WITH SYNTH SUB, PERC APPROACH (04/02/17) REPLACEMENT OF RIGHT LENS WITH SYNTH SUB, PERC APPROACH (03/12/17) Sepsis Event Note (H) - Evaluation Current Stage of Sepsis: Sepsis Possible source of Sepsis: positive: Pulmonary - Sepsis Criteria Sepsis Criteria: Recorded Temperature greater than 38.3C or Less than 36C, WBC count greater than 12,000 or less than 4000 ABX Reporting Has patient been on IV antibiotics over the past 48 hours?: Yes Current Medications - Current Medications Current Medications: Active Medications Acetaminophen (Acetaminophen 325 Mg Tablet) 650 mg PO Q4HR PRN PRN Reason: Pain 1 to 4 Albuterol (Albuterol 1 Puff) 2 puffs INH Q4HR PRN PRN Reason: Wheezing Lipase/Protease/Amylase (Lipase/Protease/Amylase Capsule) 4 cap PO TIDWM [facility] Last Admin: 08/31/21 12:45 Dose: 4 cap Documented by: Atorvastatin Calcium (Atorvastatin 40 Mg Tablet) 60 mg PO QPM [facility] Cholecalciferol (Cholecalciferol 25 Mcg Tablet) 50 mcg PO DAILY [facility] Last Admin: 08/31/21 08:16 Dose: 50 mcg Documented by: Dexamethasone (Dexamethasone 4 Mg Tablet) 6 mg PO DAILYWM [facility] Stop: 09/07/21 08:01 Enoxaparin Sodium (Enoxaparin 40 Mg/0.4 Ml Syringe) 40 mg SUBQ DAILY [facility] Last Admin: 08/31/21 08:17 Dose: 40 mg Documented by: Ferrous Sulfate (Ferrous Sulfate 325 Mg Tablet) 325 mg PO DAILYWM [facility] Last Admin: 08/31/21 12:45 Dose: 325 mg Documented by: Gabapentin (Gabapentin 100 Mg Capsule) 200 mg PO HS [facility] Last Admin: 08/30/21 21:42 Dose: 200 mg Documented by: Guaifenesin (Guaifenesin 600 Mg Tablet) 600 mg PO BID [facility] Last Admin: 08/31/21 08:16 Dose: 600 mg Documented by: Azithromycin 500 mg/ Sodium (Chloride) 250 mls @ 250 mls/hr IV Q24H [facility] Stop: 08/31/21 22:59 Last Infusion: 08/31/21 00:10 Dose: Infused Documented by: Remdesivir 100 mg/ Sodium (Chloride) 100 mls @ 200 mls/hr IV DAILY [facility] Stop: 09/03/21 09:29 Last Infusion: 08/31/21 10:45 Dose: Infused Documented by: Ceftriaxone Sodium 2 gm/ (Sodium Chloride) 100 mls @ 200 mls/hr IV Q24H [facility] Stop: 09/02/21 21:29 Last Infusion: 08/30/21 22:04 Dose: Infused Documented by: Insulin Aspart (Insulin Aspart 300 Unit/3 Ml Pen) 1 - 9 unit SUBQ 0800,1200,1700,2100 [facility]; Protocol Last Admin: 08/31/21 11:18 Dose: 1 unit Documented by: Levothyroxine Sodium (Levothyroxine 112 Mcg Tablet) 112 mcg PO QDAC [facility] Montelukast Sodium (Montelukast 10 Mg Tablet) 10 mg PO DAILY [facility] Last Admin: 08/31/21 08:17 Dose: 10 mg Documented by: Multivitamins/Minerals (Multivitamin W/Minerals Tablet) 1 tab PO DAILYWM [facility] Last Admin: 08/31/21 08:14 Dose: 1 tab Documented by: Ondansetron HCl (Ondansetron Odt 4 Mg Tablet) 4 mg TL Q6HR PRN PRN Reason: Nausea / Vomiting Ondansetron HCl (Ondansetron 4 Mg/2 Ml Vial) 4 mg IVP Q6HR PRN PRN Reason: Nausea / Vomiting Oxycodone HCl (Oxycodone 5 Mg Tablet) 5 mg PO Q4HR PRN PRN Reason: PAIN Polyethylene Glycol (Polyethylene Glycol 3350 17 Gm Packet) 17 gm PO DAILY [facility] Last Admin: 08/31/21 08:17 Dose: 17 gm Documented by: Saccharomyces Boulardii (Saccharomyces Boulardii 250 Mg Capsule) 250 mg PO BIDWM [facility] Sodium Chloride (Sodium Chloride Flush 0.9% 10 Ml Syringe) 10 ml IVP PRN PRN PRN Reason: NEEDED PER PROVIDER ORDERS Last Admin: 08/31/21 10:11 Dose: 20 ml Documented by: Sodium Chloride (Sodium Chloride Flush 0.9% 10 Ml Syringe) 10 ml IVP 0100,0900,1700 [facility] Last Admin: 08/31/21 10:12 Dose: 10 ml Documented by: Tamsulosin HCl (Tamsulosin 0.4 Mg Capsule) 0.4 mg PO DAILY [facility] Last Admin: 08/31/21 08:15 Dose: 0.4 mg Documented by: Atenolol 75 mg PO DAILY 06/28/13 Atorvastatin Calcium [Lipitor] 60 mg PO HS 06/28/13 Salmeterol [Serevent] 1 puffs INH BID 06/28/13 Levothyroxine [Synthroid] 112 mcg PO DAILY 04/03/15 Gabapentin [Neurontin] 200 mg PO HS 10/28/20 Spironolactone [Aldactone] 75 mg PO DAILY 10/28/20 Furosemide [Lasix] 40 - 80 mg PO DAILY PRN 08/30/21 Lipase/Protease/Amylase [Creon Dr 12,000 Units Capsule] 4 cap PO TIDWM 08/30/21 Mometasone Furoate [Asmanex] 1 puffs PO BID 08/30/21 Montelukast [Singulair] 10 mg PO DAILY 08/30/21 Oxycodone HCl/Acetaminophen [Percocet 5-325 mg Tablet] 1 tab PO Q8H PRN 08/30/21
[2021-08-31] MEDS: SACCHAROMYCES BOULARDII 250 MG CAPSULE PO SCH (17:25)
[2021-08-31] MEDS: SODIUM CHLORIDE 0.9% 1,000 ML IV SCH (19:18)
[2021-08-31] MEDS: ATORVASTATIN 40 MG TABLET PO SCH (21:07)
[2021-08-31] MEDS: cefTRIAXone 2 GM in SODIUM CHLORIDE 0.9% MINIBAG 100 ML IV SCH (21:08)
[2021-08-31] MEDS: GABAPENTIN 100 MG CAPSULE PO SCH (21:08)
[2021-08-31] MEDS: AZITHROMYCIN INJ 500 MG in SODIUM CHLORIDE 0.9% 250 ML IV SCH (22:08)
[2021-09-01] MEDS: SODIUM CHLORIDE FLUSH 0.9% 10 ML SYRINGE IVP SCH ×3 (01:15→17:07)
[2021-09-01 06:23] LABS: BASOPHILS % (AUTO) 0.3 %; HCT - HEMATOCRIT 28.3 % (37.0-47.0); HGB - HEMOGLOBIN 8.9 g/dL (12.0-16.0); LYMPHOCYTES % (AUTO) 5.7 %; MEAN CORPUSCULAR HEMOGLOBIN 28.4 pg (27.0-31.0); MEAN CORPUSCULAR HGB CONC 31.4 g/dL (32.0-36.0); MEAN CORPUSCULAR VOLUME 90.4 fL (81.0-99.0); MEAN PLATELET VOLUME 10.2 fL (7.9-10.8); MONOCYTES % (AUTO) 7.1 %; NEUTROPHILS % (AUTO) 83.3 %; PLT - PLATELET COUNT 399 10^3/uL (130-450); RED BLOOD COUNT 3.13 10^6/uL (4.20-5.40); RED CELL DISTRIBUTION WIDTH 15.9 % (12.0-15.0); WHITE BLOOD COUNT 19.3 x10^3/uL (4.8-10.8)
[2021-09-01 06:28] LABS: ABNORMAL LYMPHS % (MANUAL) 0 %
[2021-09-01 06:41] LABS: ALBUMIN 2.8 g/dL (3.2-5.5); BILIRUBIN,DIRECT 0.1 mg/dL (0.1-0.5); BILIRUBIN,TOTAL 0.5 mg/dL (0.2-1.0); CALCIUM 8.6 mg/dL (8.5-10.3); CREATININE 0.9 mg/dL (0.4-1.0); MAGNESIUM 1.8 mg/dL (1.7-2.8); PHOSPHORUS 2.4 mg/dL (2.5-4.6); POTASSIUM 4.5 mmol/L (3.5-5.0); TOTAL PROTEIN 6.2 g/dL (6.7-8.2)
[2021-09-01] MEDS: LEVOTHYROXINE 112 MCG TABLET PO SCH (06:55)
[2021-09-01 08:12] LABS: BAND NEUTROPHILS % (MANUAL) 3 %; DIFFERENTIAL COMMENT MANUAL DIFFERENTIAL; LYMPHOCYTES % (MANUAL) 3 %; NEUTROPHILS # (MANUAL) 17.4 10^3/uL (1.5-6.6); REACTIVE LYMPHS % (MANUAL) 2 %
[2021-09-01] MEDS: MULTIVITAMIN W/MINERALS TABLET PO SCH (08:46)
[2021-09-01] MEDS: dexAMETHasone 4 MG TABLET PO SCH (08:46)
[2021-09-01] MEDS: FERROUS SULFATE 325 MG TABLET PO SCH (08:47)
[2021-09-01] MEDS: SACCHAROMYCES BOULARDII 250 MG CAPSULE PO SCH ×2 (08:47→17:07)
[2021-09-01] MEDS: LIPASE/PROTEASE/AMYLASE CAPSULE PO SCH ×3 (08:47→17:06)
[2021-09-01] MEDS: MONTELUKAST 10 MG TABLET PO SCH (08:47)
[2021-09-01] MEDS: ENOXAPARIN 40 MG/0.4 ML SYRINGE SUBQ SCH (08:47)
[2021-09-01] MEDS: TAMSULOSIN 0.4 MG CAPSULE PO SCH (08:47)
[2021-09-01] MEDS: guaiFENesin 600 MG TABLET PO SCH ×2 (08:47→21:21)
[2021-09-01] MEDS: CHOLECALCIFEROL 25 MCG TABLET PO SCH (08:48)
[2021-09-01] MEDS: polyethylene glycoL 3350 17 GM PACKET PO SCH (08:49)
[2021-09-01] MEDS: INSULIN ASPART 300 UNIT/3 ML PEN SUBQ SCH ×4 (09:00→21:21)
[2021-09-01] MEDS: REMDESIVIR 100MG VIAL 100 MG in SODIUM CHLORIDE 0.9% 100ML 100 ML IV SCH (10:34)
[2021-09-01] MEDS: SODIUM CHLORIDE 0.9% 1,000 ML IV SCH (10:34)
--- NOTE | 2021-09-01 14:18 | PROVIDER PROGRESS NOTE ---
Subjective - Prog Note Date Prog Note Date: 09/01/21 Prog Note Time: 14:14 - Subjective Pt reports feeling: Improved Subjective: She is ambulating in the room. Needing only 1 L of oxygen. At times she seems disengaged, with a flat affect. At other times she is angry and annoyed that the food is too cold, the food is too hot, or that the aide did not come fast enough. 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 And this is not who she usually is. CT of the head is negative from admission. She is eating 50 to 75% of her meals. She denies chest pain. Cough is mild. No abdominal pain. Current Medications - Current Medications Current Medications: Active Medications Acetaminophen (Acetaminophen 325 Mg Tablet) 650 mg PO Q4HR PRN PRN Reason: Pain 1 to 4 Albuterol (Albuterol 1 Puff) 2 puffs INH Q4HR PRN PRN Reason: Wheezing Amoxicillin (Amoxicillin 250 Mg Capsule) 500 mg PO Q6HR [facility] Lipase/Protease/Amylase (Lipase/Protease/Amylase Capsule) 4 cap PO TIDWM [facility] Last Admin: 09/01/21 12:43 Dose: 4 cap Documented by: Atorvastatin Calcium (Atorvastatin 40 Mg Tablet) 60 mg PO QPM [facility] Last Admin: 08/31/21 21:07 Dose: 60 mg Documented by: Cholecalciferol (Cholecalciferol 25 Mcg Tablet) 50 mcg PO DAILY [facility] Last Admin: 09/01/21 08:48 Dose: 50 mcg Documented by: Dexamethasone (Dexamethasone 4 Mg Tablet) 6 mg PO DAILYWM [facility] Stop: 09/07/21 08:01 Last Admin: 09/01/21 08:46 Dose: 6 mg Documented by: Enoxaparin Sodium (Enoxaparin 40 Mg/0.4 Ml Syringe) 40 mg SUBQ DAILY [facility] Last Admin: 09/01/21 08:47 Dose: 40 mg Documented by: Ferrous Sulfate (Ferrous Sulfate 325 Mg Tablet) 325 mg PO DAILYWM [facility] Last Admin: 09/01/21 08:47 Dose: 325 mg Documented by: Gabapentin (Gabapentin 100 Mg Capsule) 200 mg PO [facility] Last Admin: 08/31/21 21:08 Dose: 200 mg Documented by: Guaifenesin (Guaifenesin 600 Mg Tablet) 600 mg PO BID [facility] Last Admin: 09/01/21 08:47 Dose: 600 mg Documented by: Remdesivir 100 mg/ Sodium (Chloride) 100 mls @ 200 mls/hr IV DAILY [facility] Stop: 09/03/21 09:29 Last Infusion: 09/01/21 11:43 Dose: Infused Documented by: Sodium Chloride (Normal Saline 0.9%) 1,000 mls @ 83.333 mls/hr IV .Q12H [facility] Stop: 09/01/21 18:59 Last Admin: 09/01/21 10:34 Dose: 83.3 mls/hr Documented by: Insulin Aspart (Insulin Aspart 300 Unit/3 Ml Pen) 1 - 9 unit SUBQ 0800,1200,1700,2100 [facility]; Protocol Last Admin: 09/01/21 12:44 Dose: 1 unit Documented by: Levothyroxine Sodium (Levothyroxine 112 Mcg Tablet) 112 mcg PO QDAC [facility] Last Admin: 09/01/21 06:55 Dose: 112 mcg Documented by: Montelukast Sodium (Montelukast 10 Mg Tablet) 10 mg PO DAILY [facility] Last Admin: 09/01/21 08:47 Dose: 10 mg Documented by: Multivitamins/Minerals (Multivitamin W/Minerals Tablet) 1 tab PO DAILYWM [facility] Last Admin: 09/01/21 08:46 Dose: 1 tab Documented by: Ondansetron HCl (Ondansetron Odt 4 Mg Tablet) 4 mg TL Q6HR PRN PRN Reason: Nausea / Vomiting Ondansetron HCl (Ondansetron 4 Mg/2 Ml Vial) 4 mg IVP Q6HR PRN PRN Reason: Nausea / Vomiting Oxycodone HCl (Oxycodone 5 Mg Tablet) 5 mg PO Q4HR PRN PRN Reason: PAIN Polyethylene Glycol (Polyethylene Glycol 3350 17 Gm Packet) 17 gm PO DAILY [facility] Last Admin: 09/01/21 08:49 Dose: 17 gm Documented by: Saccharomyces Boulardii (Saccharomyces Boulardii 250 Mg Capsule) 250 mg PO BIDWM [facility] Last Admin: 09/01/21 08:47 Dose: 250 mg Documented by: Sodium Chloride (Sodium Chloride Flush 0.9% 10 Ml Syringe) 10 ml IVP PRN PRN PRN Reason: NEEDED PER PROVIDER ORDERS Last Admin: 08/31/21 10:11 Dose: 20 ml Documented by: Sodium Chloride (Sodium Chloride Flush 0.9% 10 Ml Syringe) 10 ml IVP 0100,0900,1700 [facility] Last Admin: 09/01/21 08:50 Dose: 10 ml Documented by: Tamsulosin HCl (Tamsulosin 0.4 Mg Capsule) 0.4 mg PO DAILY [facility] Last Admin: 09/01/21 08:47 Dose: 0.4 mg Documented by: Atenolol 75 mg PO DAILY 06/28/13 Atorvastatin Calcium [Lipitor] 60 mg PO HS 06/28/13 Salmeterol [Serevent] 1 puffs INH BID 06/28/13 Levothyroxine [Synthroid] 112 mcg PO DAILY 04/03/15 Gabapentin [Neurontin] 200 mg PO HS 10/28/20 Spironolactone [Aldactone] 75 mg PO DAILY 10/28/20 Furosemide [Lasix] 40 - 80 mg PO DAILY PRN 08/30/21 Lipase/Protease/Amylase [Creon Dr 12,000 Units Capsule] 4 cap PO TIDWM 08/30/21 Mometasone Furoate [Asmanex] 1 puffs PO BID 08/30/21 Montelukast [Singulair] 10 mg PO DAILY 08/30/21 Oxycodone HCl/Acetaminophen [Percocet 5-325 mg Tablet] 1 tab PO Q8H PRN 08/30/21 Objective - Vital Signs/Intake & Output Reviewed Vital Signs: Yes Vital Signs: Vital Signs x48h Temp Pulse Resp BP BP Pulse Ox 09/01/21 12:59 36.9 C 57 L 20 171/64 H 94 09/01/21 08:01 36.5 C 48 L 20 165/60 H 97 09/01/21 07:09 36.6 C 44 L 16 157/64 H 95 Intake & Output: Intake & Output 08/29/21 08/30/21 08/31/21 09/01/21 23:59 23:59 23:59 23:59 Intake Total 100 2893.333 9010.155 4034.632 Output Total 0 7610 039 7089 Balance 100 1293.333 822.777 166.632 - Objective General Appearance: positive: No acute distress, Alert Eyes Bilateral: positive: PERRL, EOMI ENT: positive: No signs of dehydration Neck: positive: No JVD. negative: Stiff neck Respiratory: positive: No respiratory distress, Rales (Faint bilateral and midlung). negative: Wheezes, Rhonchi Cardiovascular: positive: Regular rate & rhythm. negative: Systolic murmur, Gallop/S4, Friction rub Abdomen: positive: Non-tender, No organomegaly, Nml bowel sounds, No distention Skin: positive: Warm, Dry, Pallor Extremities: positive: Full ROM, No pedal edema Neurologic/Psychiatric: positive: Oriented x3, CN's nml (2-12), Motor nml, Sensation nml, Depressed mood/affect - Lab Results Fish Bones: 09/01/21 06:05 09/01/21 06:05 Other Labs: Lab Results x24hrs 09/01/21 09/01/21 Range/Units 06:05 06:05 WBC 19.3 H (4.8-10.8) x10^3/uL RBC 3.13 L (4.20-5.40) 10^6/uL Hgb 8.9 L (12.0-16.0) g/dL Hct 28.3 L (37.0-47.0) % MCV 90.4 (81.0-99.0) fL MCH 28.4 (27.0-31.0) pg MCHC 31.4 L (32.0-36.0) g/dL RDW 15.9 H (12.0-15.0) % Plt Count 399 (130-450) 10^3/uL MPV 10.2 (7.9-10.8) fL Neut # (Auto) Not Reportable Lymph # (Auto) Not Reportable [place] # (Auto) Not Reportable Eos # (Auto) Not Reportable Baso # (Auto) Not Reportable Absolute Nucleated RBC Not Reportable Total Counted 100 Band Neuts % (Manual) 3 (0 - 10) % Reactive Lymphs % (Man) 2 % Abnorm Lymph % (Manual) 0 % Nucleated RBC % Not Reportable Neutrophils # (Manual) 17.4 H (1.5-6.6) 10^3/uL Lymphocytes # (Manual) 1.0 L (1.5-3.5) 10^3/uL Monocytes # (Manual) 1.0 (0.0-1.0) 10^3/uL Eosinophils # (Manual) 0.0 (0-0.7) 10^3/uL Basophils # (Manual) 0.0 (0-0.1) 10^3/uL Differential Comment MANUAL DIFFERENTIAL Sodium 138 (135-145) mmol/L Potassium 4.5 (3.5-5.0) mmol/L Chloride 106 (101-111) mmol/L Carbon Dioxide 22 (21-32) mmol/L Anion Gap 10.0 (6-13) BUN 34 H (6-20) mg/dL Creatinine 0.9 (0.4-1.0) mg/dL Estimated GFR (MDRD) 61 L (>89) Glucose 140 H (70-100) mg/dL Calcium 8.6 (8.5-10.3) mg/dL Phosphorus 2.4 L (2.5-4.6) mg/dL Magnesium 1.8 (1.7-2.8) mg/dL Total Bilirubin 0.5 (0.2-1.0) mg/dL Direct Bilirubin 0.1 (0.1-0.5) mg/dL AST 44 H (10-42) IU/L ALT 60 (10-60) IU/L Alkaline Phosphatase 66 (42-121) IU/L Total Protein 6.2 L (6.7-8.2) g/dL Albumin 2.8 L (3.2-5.5) g/dL Globulin 3.4 (2.1-4.2) g/dL ABX Reporting Has patient been on IV antibiotics over the past 48 hours?: Yes Sepsis Event Note (H) - Evaluation Current Stage of Sepsis: Sepsis Possible source of Sepsis: positive: Pulmonary - Sepsis Criteria Sepsis Criteria: Recorded Temperature greater than 38.3C or Less than 36C, WBC count greater than 12,000 or less than 4000 Assessment/Plan - Problem List (1) Pneumonia due to 2019 novel coronavirus Impression: Patient presented is a low degree fever, hypoxemia needing 4 L. White cell count was elevated on admission at 15,000 and went even higher with steroids. Chest x-ray had left-sided pneumonia that was classic for bacterial pneumonia as well as being Covid positive. She has been treated empirically for both Covid pneumonia and community-acquired pneumonia. White cell count peaked at 20,000 on the second day of admission. Today she is 19.3. She has been needing less oxygen and is down to 1 L or room air today. Metabolic encephalopathy and confusion appears to have resolved from our measurement, but is still concerned that she is just not as engaged or as alert as she usually is at baseline. I reviewed her CT with him. No focal neurological deficits. Plan: Change Rocephin to amoxicillin p.o. Has completed azithromycin Remdesivir day #01/19. Decadron day #02/24. We will continue to monitor for hypoxemia and confusion. I have advised her that she may need some help at home when she gets there in the next few days. He is considering hiring private duty hire to keep an eye on her while he does his errands. She is not needing physical therapy at this time. Resolved/Stable/chronic (2) DIAMOND (acute kidney injury) Conclusion/Plan: Baseline creatinine is 0.8 and occasionally up to 1.0. She presented with a creatinine of 1.9. She has been back down to baseline since August 31. (4) Hyperkalemia resolved. (5) Hypothyroidism Conclusion/Plan: Her TSH is within normal limits. We will continue home Synthroid. (6) bradycardia pt report she has hx of chronic bradycardia. she denies dizziness, chest pain or other symptoms. we will hold home Atenolol, continue tele monitor (7)asthma pt has hx of asthma, pt is on steroid treatment for Covid 19, also breath treatment now. (8) metabolic encephalopathy
[2021-09-01] MEDS: ACETAMINOPHEN 325 MG TABLET PO PRN (16:04)
[2021-09-01] MEDS: AMOXICILLIN 250 MG CAPSULE PO SCH (17:50)
[2021-09-01] MEDS: ATORVASTATIN 40 MG TABLET PO SCH (21:20)
[2021-09-01] MEDS: GABAPENTIN 100 MG CAPSULE PO SCH (21:20)
[2021-09-02] MEDS: AMOXICILLIN 250 MG CAPSULE PO SCH ×4 (00:48→17:21)
[2021-09-02] MEDS: SODIUM CHLORIDE FLUSH 0.9% 10 ML SYRINGE IVP SCH ×3 (00:49→17:13)
[2021-09-02] MEDS: LEVOTHYROXINE 112 MCG TABLET PO SCH (06:32)
[2021-09-02 07:21] LABS: BASOPHILS % (AUTO) 0.3 %; HCT - HEMATOCRIT 32.5 % (37.0-47.0); HGB - HEMOGLOBIN 10.5 g/dL (12.0-16.0); LYMPHOCYTES % (AUTO) 6.9 %; MEAN CORPUSCULAR HEMOGLOBIN 28.8 pg (27.0-31.0); MEAN CORPUSCULAR HGB CONC 32.3 g/dL (32.0-36.0); MEAN PLATELET VOLUME 10.5 fL (7.9-10.8); NEUTROPHILS % (AUTO) 74.9 %; PLT - PLATELET COUNT 477 10^3/uL (130-450); RED BLOOD COUNT 3.65 10^6/uL (4.20-5.40); RED CELL DISTRIBUTION WIDTH 15.3 % (12.0-15.0); WHITE BLOOD COUNT 17.2 x10^3/uL (4.8-10.8)
[2021-09-02 07:26] LABS: ALBUMIN 3.1 g/dL (3.2-5.5); BILIRUBIN,DIRECT 0.2 mg/dL (0.1-0.5); BILIRUBIN,TOTAL 0.5 mg/dL (0.2-1.0); CALCIUM 8.8 mg/dL (8.5-10.3); CREATININE 0.8 mg/dL (0.4-1.0); MAGNESIUM 1.7 mg/dL (1.7-2.8); PHOSPHORUS 2.8 mg/dL (2.5-4.6); POTASSIUM 4.1 mmol/L (3.5-5.0); TOTAL PROTEIN 6.5 g/dL (6.7-8.2)
[2021-09-02 07:31] LABS: SLIDE REVIEW? Indicated
[2021-09-02 07:32] LABS: ABNORMAL LYMPHS % (MANUAL) 0 %
[2021-09-02 07:55] LABS: BAND NEUTROPHILS % (MANUAL) 1 %; LYMPHOCYTES # (MANUAL) 0.2 10^3/uL (1.5-3.5); LYMPHOCYTES % (MANUAL) 1 %; MONOCYTES # (MANUAL) 2.8 10^3/uL (0.0-1.0); MYELOCYTES % (MANUAL) 2 %; NEUTROPHILS # (MANUAL) 13.9 10^3/uL (1.5-6.6)
[2021-09-02] MEDS ORDERED: SPIRONOLACTONE 50 MG PO SCH (09:00)
[2021-09-02] MEDS ORDERED: NON FORMULARY MED (Atenolol [Atenolol] 50 MG Tablet) PO SCH (09:00)
[2021-09-02] MEDS: ENOXAPARIN 40 MG/0.4 ML SYRINGE SUBQ SCH (09:11)
[2021-09-02] MEDS: REMDESIVIR 100MG VIAL 100 MG in SODIUM CHLORIDE 0.9% 100ML 100 ML IV SCH (09:12)
[2021-09-02] MEDS: INSULIN ASPART 300 UNIT/3 ML PEN SUBQ SCH ×4 (09:22→22:03)
[2021-09-02] MEDS: dexAMETHasone 4 MG TABLET PO SCH (09:22)
[2021-09-02] MEDS: CHOLECALCIFEROL 25 MCG TABLET PO SCH (09:23)
[2021-09-02] MEDS: SACCHAROMYCES BOULARDII 250 MG CAPSULE PO SCH ×2 (09:25→17:12)
[2021-09-02] MEDS: guaiFENesin 600 MG TABLET PO SCH ×2 (09:25→22:03)
[2021-09-02] MEDS: LIPASE/PROTEASE/AMYLASE CAPSULE PO SCH ×3 (09:26→17:12)
[2021-09-02] MEDS: MULTIVITAMIN W/MINERALS TABLET PO SCH (09:26)
[2021-09-02] MEDS: FERROUS SULFATE 325 MG TABLET PO SCH (09:26)
[2021-09-02] MEDS: TAMSULOSIN 0.4 MG CAPSULE PO SCH (09:26)
[2021-09-02] MEDS: MONTELUKAST 10 MG TABLET PO SCH (09:27)
[2021-09-02] MEDS: polyethylene glycoL 3350 17 GM PACKET PO SCH (09:28)
[2021-09-02] MEDS: atenoloL 25 MG TABLET PO SCH (09:28)
[2021-09-02] MEDS: SPIRONOLACTONE 25 MG TABLET PO SCH (09:32)
[2021-09-02] MEDS: ACETAMINOPHEN 325 MG TABLET PO PRN (17:13)
--- NOTE | 2021-09-02 20:21 | PROVIDER PROGRESS NOTE ---
Subjective - Prog Note Date Prog Note Date: 09/02/21 Prog Note Time: 20:21 - Subjective Subjective: Today her mentation is the best is ever been. She is much more sharper, clear. Less complaints that come from out of nowhere. She is starting to realize that she has been really ill and she cannot believe this is happened. She can barely remember the days before she was admitted. She is still short of breath. Has hardly any appetite. But is ambulating in the room. No chest pain, palpitations, edema. Objective - Vital Signs/Intake & Output Reviewed Vital Signs: Yes Vital Signs: Vital Signs x48h Temp Pulse Resp BP BP Pulse Ox 09/02/21 20:01 37.2 C 51 L 18 138/59 H 95 09/02/21 15:47 37.0 C 51 L 18 145/61 H 96 Intake & Output: Intake & Output 08/30/21 08/31/21 09/01/21 09/02/21 23:59 23:59 23:59 23:59 Intake Total 2893.333 1024.420 9821.632 440 Output Total 6189 700 6057 600 Balance 1293.333 822.777 684.632 -160 - Objective General Appearance: positive: Alert, Mild distress (Respiratory. She says that she is just exhausted sitting in the chair.) Eyes Bilateral: positive: PERRL, EOMI ENT: positive: No signs of dehydration Neck: positive: No JVD. negative: Stiff neck Respiratory: positive: Rales. negative: Wheezes, Rhonchi Cardiovascular: positive: Regular rate & rhythm. negative: Gallop/S4, Friction rub Abdomen: positive: Non-tender, No organomegaly, Nml bowel sounds, No distention Skin: positive: Warm, Dry Extremities: positive: Full ROM, No pedal edema Neurologic/Psychiatric: positive: Oriented x3, CN's nml (2-12), Motor nml - Lab Results Fish Bones: 09/03/21 06:19 09/03/21 06:19 Other Labs: Lab Results x24hrs 09/02/21 09/02/21 Range/Units 07:01 07:01 WBC 17.2 H (4.8-10.8) x10^3/uL RBC 3.65 L (4.20-5.40) 10^6/uL Hgb 10.5 L (12.0-16.0) g/dL Hct 32.5 L (37.0-47.0) % MCV 89.0 (81.0-99.0) fL MCH 28.8 (27.0-31.0) pg MCHC 32.3 (32.0-36.0) g/dL RDW 15.3 H (12.0-15.0) % Plt Count 477 H (130-450) 10^3/uL MPV 10.5 (7.9-10.8) fL Neut # (Auto) Not Reportable Lymph # (Auto) Not Reportable [place] # (Auto) Not Reportable Eos # (Auto) Not Reportable Baso # (Auto) Not Reportable Absolute Nucleated RBC Not Reportable Total Counted 100 Band Neuts % (Manual) 1 (0 - 10) % Abnorm Lymph % (Manual) 0 % Myelocytes % 2 H ( - 0) % Nucleated RBC % Not Reportable Neutrophils # (Manual) 13.9 H (1.5-6.6) 10^3/uL Lymphocytes # (Manual) 0.2 L (1.5-3.5) 10^3/uL Monocytes # (Manual) 2.8 H (0.0-1.0) 10^3/uL Eosinophils # (Manual) 0.0 (0-0.7) 10^3/uL Basophils # (Manual) 0.0 (0-0.1) 10^3/uL Manual Slide Review Indicated Sodium 134 L (135-145) mmol/L Potassium 4.1 (3.5-5.0) mmol/L Chloride 103 (101-111) mmol/L Carbon Dioxide 22 (21-32) mmol/L Anion Gap 9.0 (6-13) BUN 26 H (6-20) mg/dL Creatinine 0.8 (0.4-1.0) mg/dL Estimated GFR (MDRD) 70 L (>89) Glucose 106 H (70-100) mg/dL Calcium 8.8 (8.5-10.3) mg/dL Phosphorus 2.8 (2.5-4.6) mg/dL Magnesium 1.7 (1.7-2.8) mg/dL Total Bilirubin 0.5 (0.2-1.0) mg/dL Direct Bilirubin 0.2 (0.1-0.5) mg/dL AST 34 (10-42) IU/L ALT 56 (10-60) IU/L Alkaline Phosphatase 70 (42-121) IU/L Total Protein 6.5 L (6.7-8.2) g/dL Albumin 3.1 L (3.2-5.5) g/dL Globulin 3.4 (2.1-4.2) g/dL ABX Reporting Has patient been on IV antibiotics over the past 48 hours?: Yes Sepsis Event Note (H) - Evaluation Current Stage of Sepsis: Sepsis Possible source of Sepsis: positive: Pulmonary - Sepsis Criteria Sepsis Criteria: Recorded Temperature greater than 38.3C or Less than 36C, WBC count greater than 12,000 or less than 4000 Assessment/Plan - Problem List (1) Pneumonia due to 2019 novel coronavirus Impression: Patient presented is a low degree fever, hypoxemia needing 4 L. White cell count was elevated on admission at 15,000 and went even higher with steroids. Chest x-ray had left-sided pneumonia that was classic for bacterial pneumonia as well as being Covid positive. She has been treated empirically for both Covid pneumonia and community-acquired pneumonia. White cell count peaked at 20,000 on the second day of admission. Today she is 19.3. She has been needing less oxygen and is down to 1 L or room air today. Metabolic encephalopathy and confusion appears to have resolved from our measurement, but is still concerned that she is just not as engaged or as alert as she usually is at baseline. I reviewed her CT with him. No focal neurological deficits. Plan: Change Rocephin to amoxicillin p.o. Has completed azithromycin Remdesivir day #3/. Decadron day #02/24. We will continue to monitor for hypoxemia and confusion. I have advised her that she may need some help at home when she gets there in the next few days. He is considering hiring private duty hire to keep an eye on her while he does his errands. She is not needing physical therapy at this time. Resolved/Stable/chronic (2) DIAMOND (acute kidney injury) Conclusion/Plan: Baseline creatinine is 0.8 and occasionally up to 1.0. She presented with a creatinine of 1.9. She has been back down to baseline since August 31. (4) Hyperkalemia resolved. (5) Hypothyroidism Conclusion/Plan: Her TSH is within normal limits. We will continue home Synthroid. (6) bradycardia pt report she has hx of chronic bradycardia. she denies dizziness, chest pain or other symptoms. we will hold home Atenolol, continue tele monitor (7)asthma pt has hx of asthma, pt is on steroid treatment for Covid 19, also breath treatment now. (8) metabolic encephalopathy
[2021-09-02] MEDS: ATORVASTATIN 40 MG TABLET PO SCH (22:02)
[2021-09-02] MEDS: GABAPENTIN 100 MG CAPSULE PO SCH (22:03)
[2021-09-03] MEDS: AMOXICILLIN 250 MG CAPSULE PO SCH ×3 (00:42→12:00)
[2021-09-03] MEDS: SODIUM CHLORIDE FLUSH 0.9% 10 ML SYRINGE IVP SCH ×2 (00:45→08:13)
[2021-09-03] MEDS: LEVOTHYROXINE 112 MCG TABLET PO SCH (05:50)
[2021-09-03 06:25] LABS: BASOPHILS % (AUTO) 0.3 %; EOSINOPHILS % (AUTO) 0.1 %; HCT - HEMATOCRIT 33.5 % (37.0-47.0); HGB - HEMOGLOBIN 10.9 g/dL (12.0-16.0); LYMPHOCYTES % (AUTO) 8.6 %; MEAN CORPUSCULAR HEMOGLOBIN 28.5 pg (27.0-31.0); MEAN CORPUSCULAR HGB CONC 32.5 g/dL (32.0-36.0); MEAN CORPUSCULAR VOLUME 87.5 fL (81.0-99.0); MEAN PLATELET VOLUME 9.9 fL (7.9-10.8); MONOCYTES % (AUTO) 13.1 %; NEUTROPHILS % (AUTO) 69.2 %; PLT - PLATELET COUNT 473 10^3/uL (130-450); RED BLOOD COUNT 3.83 10^6/uL (4.20-5.40); RED CELL DISTRIBUTION WIDTH 15.1 % (12.0-15.0); WHITE BLOOD COUNT 17.2 x10^3/uL (4.8-10.8)
[2021-09-03 06:35] LABS: ABNORMAL LYMPHS % (MANUAL) 0 %
[2021-09-03 06:42] LABS: ALBUMIN 3.1 g/dL (3.2-5.5); BILIRUBIN,DIRECT 0.1 mg/dL (0.1-0.5); BILIRUBIN,TOTAL 0.8 mg/dL (0.2-1.0); CALCIUM 9.2 mg/dL (8.5-10.3); CREATININE 0.8 mg/dL (0.4-1.0); MAGNESIUM 1.8 mg/dL (1.7-2.8); PHOSPHORUS 3.2 mg/dL (2.5-4.6); POTASSIUM 4.1 mmol/L (3.5-5.0); TOTAL PROTEIN 6.7 g/dL (6.7-8.2)
[2021-09-03 06:45] LABS: BAND NEUTROPHILS % (MANUAL) 1 %; DIFFERENTIAL COMMENT MANUAL DIFFERENTIAL; LYMPHOCYTES # (MANUAL) 1.7 10^3/uL (1.5-3.5); LYMPHOCYTES % (MANUAL) 10 %; MONOCYTES # (MANUAL) 1.2 10^3/uL (0.0-1.0); MYELOCYTES % (MANUAL) 2 %; NEUTROPHILS # (MANUAL) 13.9 10^3/uL (1.5-6.6); PLATELET ESTIMATE, MANUAL INCREASED (>450,000) (NORMAL); PLATELET MORPHOLOGY NORMAL APPEARANCE (NORMAL); RBC MORPHOLOGY (MULTIPLE) NORMAL APPEARANCE (NORMAL); WBC MORPHOLOGY (MULTIPLE) NORMAL APPEARANCE (NORMAL)
[2021-09-03] MEDS: MULTIVITAMIN W/MINERALS TABLET PO SCH (08:07)
[2021-09-03] MEDS: dexAMETHasone 4 MG TABLET PO SCH (08:07)
[2021-09-03] MEDS: LIPASE/PROTEASE/AMYLASE CAPSULE PO SCH ×2 (08:08→13:18)
[2021-09-03] MEDS: MONTELUKAST 10 MG TABLET PO SCH (08:09)
[2021-09-03] MEDS: TAMSULOSIN 0.4 MG CAPSULE PO SCH (08:10)
[2021-09-03] MEDS: FERROUS SULFATE 325 MG TABLET PO SCH (08:10)
[2021-09-03] MEDS: SACCHAROMYCES BOULARDII 250 MG CAPSULE PO SCH (08:10)
[2021-09-03] MEDS: atenoloL 25 MG TABLET PO SCH (08:10)
[2021-09-03] MEDS: SPIRONOLACTONE 25 MG TABLET PO SCH (08:10)
[2021-09-03] MEDS: guaiFENesin 600 MG TABLET PO SCH (08:10)
[2021-09-03] MEDS: polyethylene glycoL 3350 17 GM PACKET PO SCH (08:11)
[2021-09-03] MEDS: ENOXAPARIN 40 MG/0.4 ML SYRINGE SUBQ SCH (08:11)
[2021-09-03] MEDS: CHOLECALCIFEROL 25 MCG TABLET PO SCH (08:12)
[2021-09-03] MEDS: INSULIN ASPART 300 UNIT/3 ML PEN SUBQ SCH ×2 (08:19→12:01)
[2021-09-03] MEDS: REMDESIVIR 100MG VIAL 100 MG in SODIUM CHLORIDE 0.9% 100ML 100 ML IV SCH (09:20)
--- NOTE | 2021-09-03 13:46 | Discharge Plan ---
Discharge Plan Problem Reviewed?: Yes Disposition: Home, Self Care Condition: Stable Prescriptions: Amoxicillin [Amoxil] 500 mg PO Q6HR #16 dexAMETHasone [Decadron] 6 mg PO DAILYWM #6 tablet Diet: Regular Activity Restrictions: Activity as Tolerated Shower Restrictions: No Driving Restrictions: Yes (no driving until off oxygen) Health Concerns: You presented to our emergency room after being found down and unconscious by her . He did not sick over a few days with nasal congestion, cough and vomiting. We found you to have Covid pneumonia and you have been in the hospital and you have completed remdesivir therapy which is the antiviral. You still need 5 more days of Decadron which is a steroid. While you still need oxygen, you were very anxious to go home. That is very understandable. Plan of Treatment: 1. You will be sent home to finish 2 more days of amoxicillin antibiotic therapy in case you had bacterial pneumonia. 2. He will be sent home to finish 5 more days of Decadron 6 mg a day 3. You will be sent home with oxygen. You still need oxygen when you try and do things. At rest are perfectly fine but with exertion such as getting up to go to the bathroom and will need oxygen. You were need 2 L of oxygen when you get up to do things such as shower, go to the bathroom, or walk in your house. 4. Please see your primary care provider in follow-up in the next week to make sure they can check up on you and make sure you are doing well. Care Goals: To regain your usual strength and appetite after finishing treatment for Covid pneumonia. Assessment: Patient is still a little confused at times. But very anxious to go home. We have had discussions with her indicating that he will be hiring private duty caregivers to help him at home until she gets back on her feet. She is work with physical therapy here and has no physical therapy needs. No Smoking: If you smoke, Please STOP! Call for help. Follow-up with: Martin Parekh DO [Primary Care Provider] -
--- NOTE | 2021-09-03 14:33 | DISCHARGE SUMMARY ---
Discharge Summary Admit Date: 09/02/21 Discharge Date: 09/03/21 Discharging Provider: Emelyn Pham MD Primary Care Provider: Martin Parekh MD Code Status: Attempt Resuscitation Condition at Discharge: Stable Discharge Disposition: 01 Home, Self Care - DIAGNOSES Discharge Diagnoses with Status of Each Condition: 1. Pneumonia due to 2019 novel coronavirus 2. Metabolic encephalopathy 3. Dehydration 4. Acute kidney injury 5. Hyperkalemia 6. Hypothyroidism 7. Iron deficiency anemia 8. History of pancreatic insufficiency 9. Hyperlipidemia 10. Asthma, atopic - HPI History of Present Illness: This is a 76-year-old female with a past medical history significant for sleep apnea, asthma, hypothyroidism, hypertension who presents today after being found down by her . History is obtained from the ER physician and EMR as the patient is altered and unable to provide a history. She is reportedly been seen by her last night in her usual state of health. He went to work this morning and when he returned, he found her down and "confused." She reportedly had been sick over the past few days with nasal congestion, cough and vomiting. He states she is normally quite independent and keeps herself busy throughout the day. She was vaccinated with [employer] few months ago against COVID-19. Her reports that she has had no changes in her medications recently. In the emergency department, she is noted to be afebrile. She was hypoxic when asleep requiring 2 L of oxygen via nasal cannula. Labs were significant white count of 15,000 with a left shift. Her creatinine was 1.3 which is improved from last month when it was as high as 1.9. Chest x-ray was concerning for left sided pneumonia. CT head and cervical spine showed no acute abnormalities. Urine toxicology was positive for oxycodone but otherwise negative I did discuss goals of care with the patient's and he states that he believes she would want to be a full code. - CONSULTS | PROCEDURES Procedures: 1. Cervical spine CT without fracture. No osseous lesion. Patchy opacities in the left lung apex suspicious for pneumonia. 2. Head CT without intracranial bleed or mass. Normal cerebral volume loss for age. Deep white matter chronic small vessel ischemic changes. Mucosal thickening noted in the left maxillary sinus, bilateral ethmoid air cells and left sphenoid sinus. The mastoids are clear. 3. Chest x-ray with left lung pneumonia. 4. Blood cultures negative after 2 days. Sputum cultures, after 3 days, grew out staph aureus and yeast. - HOSPITAL COURSE Hospital Course: Her metabolic encephalopathy was the primary concern at first. She was found down by her after a week of having an upper respiratory type illness that "never in my wild his dreams but I think it was Covid". She is vaccinated. She was dehydrated, with acute kidney injury, metabolic encephalopathy and hypoxic. Because the x-ray did not show the normal patchy infiltrate we associate with Covid pneumonia, she was treated as bacterial pneumonia as well. Over the course of 2 to 3 days she gradually improved. By the time of discharge she was clear mentally. She says that she cannot believe how "fuzzy" she was for so long. She does not even remember much of the days before she was admitted. Her creatinine on admission was 1.4. By the time of discharge she was 0.8. Mild hyperglycemia with the Decadron that did not need to be treated. Iron deficiency anemia was noted for her anemia and iron was 27, TIBC 192, percent saturation 14, transferrin 137. Appetite is still a problem. She does not have much of an appetite. She is still hypoxic. At rest, her O2 sats are 93%. With exertion on room air, her O2 sats are 88%. After getting up and walking around, her O2 sats improved to 94% with 2 L. As such I am ordering home O2, room air at rest, and 2 L with exertion to treat her COVID-19 and resulting hypoxemia. She still has 2 more days of amoxicillin to complete. 5 more days of Decadron t o complete. I am recommending she take an iron supplement. Multivitamin. [id number] probiotic. Her usual home medications were resumed for hyperlipidemia. She did have treatment with nebulizers for her history of asthma. But did not have severe asthma during her stay. At discharge she is stable. Temperature 36.7. Heart rate 59-75. Blood pressure 116/64. Respirations 17. 97% on 2 L. She is a 5 foot 6 inch female who looks younger than stated age. She weighs 64 kg. Fatigued appearance. Slightly nasal tone of voice. Shotty cervical adenopathy. Lungs are clear to auscultation and percussion. At rest she is completely comfortable and conversing in complete sentences with a 20-minute conversation and not fatigued. She has a regular rate and rhythm. And abdomen that is ob baljeet, soft, nontender, normal bowel sounds without masses. Extremities are without edema. She does not need any assist to get up out of the chair to go to the bathroom but she quickly decompensates with fatigue and dyspnea that takes her about 10 minutes to recover after sitting in the chair. Greater than 30 minutes was spent coordinating discharge. I am asked her to please follow-up with Dr. Parekh in the next 2 weeks.In the next month I would repeat a CBC and iron panel. If she continues to have iron deficiency anemia she may need a GI work-up. - ALLERGIES Allergies/Adverse Reactions: Allergies Allergy/AdvReac Type Severity Reaction Status Date / Time desipramine Allergy fuzzy head Verified 06/10/18 10:28 levofloxacin [From Levaquin] Allergy Rash Verified 06/10/18 10:28 lisinopril [From Zestril] Allergy unknown Verified 06/10/18 10:28 nortriptyline [Nortriptyline] Allergy fuzzy head Verified 06/10/18 10:28 tramadol HCl * [From Ultram] Allergy fuzzy head Verified 06/10/18 10:28 adhesive tape AdvReac Intermediate Itching Verified 08/30/21 07:22 - MEDICATIONS Home Medications: Ambulatory Orders Medication Instructions Recorded Confirmed Atenolol 75 mg PO DAILY 06/28/13 08/30/21 Atorvastatin Calcium [Lipitor] 60 mg PO HS 06/28/13 08/30/21 Salmeterol [Serevent] 1 puffs INH BID 06/28/13 08/30/21 Levothyroxine [Synthroid] 112 mcg PO DAILY 04/03/15 08/30/21 Gabapentin [Neurontin] 200 mg PO HS 10/28/20 08/30/21 Lipase/Protease/Amylase [Akhil [place] 4 cap PO TIDWM 08/30/21 08/30/21 12,000 Units Capsule] Mometasone Furoate [Asmanex] 1 puffs PO BID 08/30/21 08/30/21 Montelukast [Singulair] 10 mg PO DAILY 08/30/21 08/30/21 Oxycodone HCl/Acetaminophen 1 tab PO Q8H PRN 08/30/21 08/30/21 [Percocet 5-325 mg Tablet] Amoxicillin [Amoxil] 500 mg PO Q6HR #16 09/03/21 Furosemide [Lasix] 40 - 80 mg PO DAILY PRN #0 09/03/21 08/30/21 Multivitamin W/Minerals [Theragran 1 tab PO DAILYWM tablet 09/03/21 M] Spironolactone [Aldactone] 75 mg PO DAILY #0 09/03/21 08/30/21 dexAMETHasone [Decadron] 6 mg PO DAILYWM #6 tablet 09/03/21 guaiFENesin [Mucinex] 600 mg PO BID tablet 09/03/21 - LABS Result Diagrams: 09/03/21 06:19 09/03/21 06:19 - SEPSIS Current Stage of Sepsis: Sepsis Possible source of Sepsis: Pulmonary Sepsis Criteria: Recorded Temperature greater than 38.3C or Less than 36C, WBC count greater than 12,000 or less than 4000
[2021-09-03 15:15] VITALS: BP 128/61
== END 2021-09-03 15:50 | disposition home or self-care (01) | DRG 871 ==
LOC: EDUNIT# → ED 19:21 → SUPCPDRO 19:21 → MS2 21:33
PROVIDERS: ADMIT Internal Medicine; ATTEND Specialist
PROC: XW033E5 Introduction of Remdesivir Anti-infective into Peripheral Vein, Percutaneous Approach, New Technology Group 5 (ICD-10-PCS; principal; 2021-08-30)
PROC: 3E0333Z Introduction of Anti-inflammatory into Peripheral Vein, Percutaneous Approach (ICD-10-PCS; 2021-08-30)
DX: A41.9 Sepsis, unspecified organism (principal); U07.1 COVID-19; J12.82 Pneumonia due to coronavirus disease 2019; G93.41 Metabolic encephalopathy; N28.9 Disorder of kidney and ureter, unspecified; R41.82 Altered mental status, unspecified; I10 Essential (primary) hypertension; E78.00 Pure hypercholesterolemia, unspecified; N17.9 Acute kidney failure, unspecified; E87.5 Hyperkalemia; E03.9 Hypothyroidism, unspecified; E86.0 Dehydration; D50.9 Iron deficiency anemia, unspecified; E78.5 Hyperlipidemia, unspecified; J45.909 Unspecified asthma, uncomplicated; G47.30 Sleep apnea, unspecified; R09.02 Hypoxemia; R73.9 Hyperglycemia, unspecified; T38.0X5A Adverse effect of glucocorticoids and synthetic analogues, initial encounter; Z79.51 Long term (current) use of inhaled steroids; Z79.899 Other long term (current) drug therapy; Z87.19 Personal history of other diseases of the digestive system
CPT/HCPCS: 36415; 51701; 70450; 71045; 72125; 80048; 80053; 80076; 80306; 80307; 81003; 82550; 82607; 82728; 83540; 83615; 83690; 83735; 84100; 84443; 84466; 85025; 85045; 87040; 87070; 87181; 87205; 87631; 93005; 94761; 99285; A9270; C9399; G0480; J1650; J1815; J7120; J8540; 0202U; 80320; 80329; 81001; 87086

== ENCOUNTER 2022-01-10 11:30 | Outpatient (CLI) | payer MEDICARE, OTHER ==
[2022-01-10 12:37] VITALS: BP 135/64
--- NOTE | 2022-01-10 12:37 | SLEEP CARE CONSULTATION ---
Information from patient questionnaire entered by Juan Guzmán MA. I have reviewed and concur with the information entered by Juan Guzmán MA. This document represents the service I personally performed and the decisions made by , Pamela Devi ARNP. History of Present Illness Service Date and Time: 01/10/2022 1130 Previous diagnosis: Severe, Obstructive Sleep Apnea-Hypopnea Syndrome AHI: 51.3 (in 2014) Reason for follow up: other (7 MONTH F/U, POSSIBLE REPEAT STUDY, ) Equipment type: CPAP Equipment obtained from: [employer] (getting supplies as needed) Mask style: Nasal pillows Backup mask available: Yes (old mask) Prior sleep studies: Yes Year and Where: 2014 - [facility] Type of Sleep Study: Polysomnography HPI additional information: KERRI BECK was diagnosed to have severe, AHI 51.3, obstructive sleep apnea-hypopnea syndrome and returned today for CPAP therapy 7 month follow-up. Sleep Study - Results Type of Sleep Study: Polysomnography Prior sleep studies: Yes Year and Where: 2014 - [facility] CPAP Compliance Data Compliance data discussion: She cannot use her CPAP because it has some burnt smell/chemical smell coming from machine. Subjective Missed days of use due to: reports: other (cpap is recalled, has a burning fume smell stopped using it per PCP, hx of asthma, ) Patient concerns: denies: aerophagia, mask discomfort, air blowing in eyes, mask leak noise, condensation in mask/hose, nasal congestion, dry mouth, nose, throat, epistaxis, other Observed to snore while using device: No Current pressure setting perceived as: comfortable On therapy, patient: reports: sleeping better, awakening more refreshed, being more awake and alert during the day, more rested overall. denies: drowsiness while driving Initial [place] Sleepiness Scale score: 10 (in 2014) Current [place] Sleepiness Scale score: 7 (2021) Allergies and Home Medications Known drug allergies: Yes (see list) Drug allergies reviewed: Yes Home medication list reviewed: Yes (no changes) Allergy and home medication list: Allergies desipramine Allergy (Verified 06/10/18 10:28) fuzzy head levofloxacin [From Levaquin] Allergy (Verified 06/10/18 10:28) Rash lisinopril [From Zestril] Allergy (Verified 06/10/18 10:28) unknown nortriptyline [Nortriptyline] Allergy (Verified 06/10/18 10:28) fuzzy head tramadol HCl * [From Ultram] Allergy (Verified 06/10/18 10:28) fuzzy head adhesive tape Adverse Reaction (Intermediate, Verified 08/30/21 07:22) Itching Review of Systems Review of systems same as previous: No (Oct Covid Pneumonia, in hospital; fully immunized) Respiratory: reports: other (covid pneumnia after fully vaccinated, [facility] ) Physical Exam Vital signs obtained and entered by: Aydin GUZMÁN CMA AAMA Blood Pressure: 135/64 (LEFT, PULSE 58 , RESP 14,) Heart Rate: 55 O2 Saturation: 96 (paper mask) Height: 5 ft 4 in Weight: 140 lb Weight change since last visit: lost 15 lbs due to COVID Body Mass Index: 24.0 BMI Classification: Healthy weight Impression and Plan 1. Obstructive Sleep Apnea-Hypopnea Syndrome, severe. On CPAP therapy, the patient has better sleep quality and is more rested overall. Patient has a Dreamstation that is just a year old that is on the recall. She tried to use it for a while but then it started having some burning/chemical smell and she did not feel safe continuing to use the CPAP. She really wants to have a new machine because she feels better when she uses it. She is not eligible to have her insurance pay for another one. I recommended that if she is able to afford it she may purchase a portable CPAP to use until she receives a new machine from [employer]. Patient agreed with plan and prescription written. Patient's apnea severity and rationale for treatment to reduce apnea, improve sleep quality and reduce cardiovascular and cerebrovascular events was reviewed. I also reviewed the benefit of consistent device use of CPAP for hypertension and gastric reflux. * Continue auto CPAP pressure at 11 cmH2O * Portable CPAP device * Notify me if snoring with mask or feeling that the pressure is too much or too little * Maintain a healthy weight * Call this office if any problems using CPAP * Return for follow up in 1 year, or sooner if concerns arise Counseling Topics: Spare mask, Weight control Visit Type: In Office Time Spent with Patient (minutes): 20 Provider Statement: I spent 100% of the Face to Face Visit with the patient with greater than 50% spent counseling the patient and coordination of care.
== END 2022-01-10 11:31 | disposition home or self-care (01) ==
LOC: SC 11:30
PROVIDERS: ATTEND Nurse Practitioner Family
DX: G47.33 Obstructive sleep apnea (adult) (pediatric) (principal)
CPT/HCPCS: 99213; G0463; 99212

== ENCOUNTER 2022-12-25 13:41 | Outpatient (CLI) | payer MEDICARE, OTHER ==
--- NOTE | 2022-12-25 14:37 | SLEEP CARE CONSULTATION ---
Information from patient questionnaire entered by Allie Marcos. I have reviewed and concur with the information entered by Allie Marcos. This document represents the service I personally performed and the decisions made by me, Pamela Devi ARNP. History of Present Illness Service Date and Time: 12/25/2022 1341 Previous diagnosis: Severe, Obstructive Sleep Apnea-Hypopnea Syndrome AHI: 51.3 (in 2014) Reason for follow up: annual (LAST SEEN 12/2021) Equipment type: CPAP ([employer] Dreamstation recertified; NEED SD CARD) Equipment obtained from: [employer] (getting supplies as needed) Mask style: Nasal pillows Mask brand: [employer] ([employer]) Backup mask available: Yes (old mask) Last cushion change: 2 weeks Prior sleep studies: Yes Year and Where: 2014 - [facility] Type of Sleep Study: Polysomnography HPI additional information: INES BECK was diagnosed to have severe, AHI 51.3, obstructive sleep apnea-hypopnea syndrome and returned today for CPAP therapy annual follow-up. Sleep Study - Results Type of Sleep Study: Polysomnography Prior sleep studies: Yes Year and Where: 2014 - [facility] CPAP Compliance Data - Data Reviewed with Patient Average duration of nightly device use: 6 hours 39 minutes Compliance rate %: 92.9 Current pressure setting (cmH2O): 11 Average residual AHI: 6 Central apnea: 1 Obstructive apnea: 3.2 Hypopnea: 1.8 Compliance data discussion: She received her recertified Dreamstation on 12/11/2022. She has used it every night since receiving it. Subjective Missed days of use due to: reports: other (just received replacement for her recalled device) Patient concerns: reports: dry mouth, nose, throat (occasional). denies: aerophagia, mask discomfort, air blowing in eyes, mask leak noise, condensation in mask/hose, nasal congestion, epistaxis Observed to snore while using device: No Current pressure setting perceived as: comfortable On therapy, patient: reports: sleeping better, awakening more refreshed, being more awake and alert during the day, more rested overall. denies: drowsiness while driving Initial [place] Sleepiness Scale score: 10 (in 2014) Current [place] Sleepiness Scale score: 9 (12/25/22) Allergies and Home Medications Drug allergies reviewed: Yes (see list in EMR) Home medication list reviewed: Yes (no changes) Review of Systems Review of systems same as previous: Yes (no changes) Physical Exam Vital signs obtained and entered by: ALLIE Steen MA Blood Pressure: 110/50 (LEFT ARM) Cuff size: regular Heart Rate: 60 O2 Saturation: 96 Height: 5 ft 4 in Weight: 148 lb 9.6 oz Body Mass Index: 25.4 BMI Classification: Overweight Impression and Plan 1. Obstructive Sleep Apnea-Hypopnea Syndrome, severe, with good treatment compliance and fair apnea control. On CPAP therapy, the patient has better sleep quality and is more rested overall. Ines received her replacement DreamStation through [employer] on 12/11/2022. She started using it the same night she got it. She has been using it every night and is feeling an improvement of her daytime fatigue with an increase in energy. Her average residual AHI is minimally elevated at 6.0. The patients pressure will be changed to CPAP 12 cmH20 for elevation of residual AHI. Patient advised to contact me if pressure change is uncomfortable so that it can be adjusted. Goals for apnea control discussed. Patient's apnea severity and rationale for treatment to reduce apnea, improve sleep quality and reduce cardiovascular and cerebrovascular events was reviewed. I also reviewed the benefit of consistent device use of CPAP for hypertension and gastric reflux. 2. Overweight, unspecified. Currently patients BMI is 25.2. Obesity increases the risk of apnea, CPAP pressure requirements and overall health risks especially cardiovascular and diabetes. Thus patient is advised to lose weight. * Change auto CPAP pressure to 12 cmH2O * Update supplies * Notify me if snoring with mask or feeling that the pressure is too much or too little * Attempt to lose weight * Call this office if any problems using CPAP * Return for follow up in 1 year, or sooner if concerns arise Counseling Topics: Spare mask, Weight loss health impact Visit Type: In Office Time Spent with Patient (minutes): 20 Provider Statement: I spent 100% of the Face to Face Visit with the patient with greater than 50% spent counseling the patient and coordination of care.
[2022-12-25 14:38] VITALS: BP 110/50
== END 2022-12-25 13:42 | disposition home or self-care (01) ==
LOC: SC 13:41
PROVIDERS: ATTEND Nurse Practitioner Family
DX: G47.33 Obstructive sleep apnea (adult) (pediatric) (principal); E66.3 Overweight; Z68.25 Body mass index [BMI] 25.0-25.9, adult
CPT/HCPCS: 99213; G0463; 99212

== ENCOUNTER 2023-01-17 11:37 | Outpatient (CLI) | payer MEDICARE, OTHER ==
--- NOTE | 2023-01-17 17:56 | XRAY Report ---
PROCEDURE: Cervical Spine Complete INDICATIONS: MUSCLE JERKING BILATERAL HANDS TECHNIQUE: 4 views of the cervical spine acquired. COMPARISON: CT cervical spine 08/29/2021 FINDINGS: Bones: No fractures or dislocations to the C7-T1 level. Moderate-severe multilevel degenerative george nges with disc height loss, endplate spurring, and facet arthropathy. Straightening of the normal ce rvical lordosis, a finding which can be seen in the setting of muscle strain and/or spasm. Suspect mo derate multilevel bony foraminal narrowing. 2 mm retrolisthesis C5 on C6, 1-2 mm anterolisthesis C4 o n C5 Soft tissues: No prevertebral soft tissue swelling. IMPRESSION: Moderate-severe multilevel degenerative changes of the cervical spine. Reviewed by: Walker Fontana MD on 01/17/2023 5:54 PM PST Approved by: Walker Fontana MD on 01/17/2023 5:54 PM PST Station ID: [id number]
== END 2023-01-17 11:38 | disposition home or self-care (01) ==
LOC: DI 11:37
PROVIDERS: ATTEND Family Medicine
DX: M47.812 Spondylosis without myelopathy or radiculopathy, cervical region (principal); M50.30 Other cervical disc degeneration, unspecified cervical region; M43.12 Spondylolisthesis, cervical region

== ENCOUNTER 2023-03-30 12:22 | Emergency (ER) | payer MEDICARE, OTHER ==
[2023-03-30] MEDS ORDERED: ONDANSETRON 4 MG/2 ML VIAL IVP STA (12:44)
[2023-03-30] MEDS ORDERED: HYDROmorphone 1 MG/ML CARPUJECT IVP STA (12:44)
[2023-03-30] MEDS ORDERED: SODIUM CHLORIDE 0.9% 1,000 ML IV STA ×2 (12:44→14:09)
--- NOTE | 2023-03-30 12:47 | ED Physician Documentation ---
PD HPI ABD PAIN - Stated complaint Stated Complaint: ABD PX/NAUSEA - Chief complaint Chief Complaint: Abd Pain - History obtained from History obtained from: Patient - History of Present Illness Timing - onset: How many weeks ago (1) Timing - duration: Weeks (1) Timing - details: Gradual onset, Still present, Waxing and waning Quality: Cramping, Sharp, Pain Location: Epigastric Radiation: Chest Improved by: Meds Worsened by: Eating, Palpation Associated symptoms: Nausea. No: Vomiting, Diarrhea, Constipation Similar symptoms before: Diagnosis (pancreatitis/dehydration) Recently seen: Not recently seen - Additional information Additional information: Dinah Arrieta is a 77-year-old female who had an ERCP and sphincterotomy done in 1989 and she has chronically had pancreatitis and abdominal pain since. She occasionally have a flare of pain and nausea and require hydration. She has an intrathecal pump for pain management and she is part of the [facility] pain clinic. She uses 2 Zofran a day to control chronic nausea. The patient reports that over the past week she has had a flare in her nausea and pain similar to prior and she feels dehydrated. Review of Systems Constitutional: denies: Fever Eyes: denies: Decreased vision Ears: denies: Ear pain Nose: denies: Rhinorrhea / runny nose, Congestion Throat: denies: Sore throat Cardiac: denies: Chest pain / pressure Respiratory: denies: Dyspnea, Cough GI: reports: Abdominal Pain, Nausea. 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, Breast reduction - Present Medications Home Medications: Ambulatory Orders Medication Instructions Recorded Confirmed Atenolol 75 mg PO DAILY 06/28/13 12/25/22 Atorvastatin Calcium [Lipitor] 60 mg PO HS 06/28/13 12/25/22 Salmeterol [Serevent] 1 puffs INH BID 06/28/13 12/25/22 Levothyroxine [Synthroid] 112 mcg PO DAILY 04/03/15 12/25/22 Gabapentin [Neurontin] 200 mg PO HS 10/28/20 12/25/22 Lipase/Protease/Amylase [Akhil Everett 4 cap PO TIDWM 08/30/21 12/25/22 12,000 Unit Capsule] Mometasone Furoate [Asmanex] 1 puffs PO BID 08/30/21 12/25/22 Montelukast [Singulair] 10 mg PO DAILY 08/30/21 12/25/22 Oxycodone HCl/Acetaminophen 1 tab PO Q8H PRN 08/30/21 12/25/22 [Percocet 5-325 mg Tablet] Amoxicillin 500 mg PO QID #8 cap 09/03/21 12/25/22 Amoxicillin [Amoxil] 500 mg PO Q6HR #16 09/03/21 12/25/22 Furosemide [Lasix] 40 - 80 mg PO DAILY PRN #0 09/03/21 12/25/22 Multivitamin W/Minerals [Theragran 1 tab PO DAILYWM tablet 09/03/21 12/25/22 M] Spironolactone [Aldactone] 75 mg PO DAILY #0 09/03/21 12/25/22 dexAMETHasone [Decadron] 6 mg PO DAILYWM #6 tablet 09/03/21 12/25/22 guaiFENesin [Mucinex] 600 mg PO BID tablet 09/03/21 12/25/22 - Allergies Allergies/Adverse Reactions: Allergies Allergy/AdvReac Type Severity Reaction Status Date / Time desipramine Allergy fuzzy head Verified 03/30/23 12:32 levofloxacin [From Levaquin] Allergy Rash Verified 03/30/23 12:32 lisinopril [From Zestril] Allergy unknown Verified 03/30/23 12:32 nortriptyline [Nortriptyline] Allergy fuzzy head Verified 03/30/23 12:32 tramadol HCl * [From Ultram] Allergy fuzzy head Verified 03/30/23 12:32 adhesive tape AdvReac Intermediate Itching Verified 03/30/23 12:32 - Social History Does the pt smoke?: No Smoking Status: Unknown if ever smoked Does the pt drink ETOH?: Yes Does the pt have substance abuse?: No - Immunizations Immunizations are current?: Yes PD ED PE NORMAL - Vitals Vital signs reviewed: Yes - General General: Alert and oriented X 3, Well developed/nourished, Other (house father tone and flattened affect consistent with pain ) - HEENT HEENT: Atraumatic, PERRL, EOMI - Neck Neck: Supple, no meningeal sign, No bony TTP - Cardiac Cardiac: RRR, No murmur - Respiratory Respiratory: No respiratory distress, Clear bilaterally - Abdomen Abdomen: Normal bowel sounds, Soft, Non distended, No organomegaly, Other (mild epigastric tenderness to palpation ) - Back Back: No CVA TTP, No spinal TTP - Derm Derm: Normal color, Warm and dry, No rash - Extremities Extremities: No deformity, No edema - Neuro Neuro: Alert and oriented X 3, 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, No motor deficit, No sensory deficit, Normal speech Eye Opening: Spontaneous Motor: Obeys Commands Verbal: Oriented GCS Score: 15 - Psych Psych: Normal mood Results - Vitals Vitals: Vital Signs - 24 hr 03/30/23 03/30/23 03/30/23 12:29 14:31 15:27 Temperature 36.5 C Heart Rate 65 57 L 58 L Respiratory 16 18 18 Rate Blood Pressure 148/69 H 134/54 H 135/106 H O2 Saturation 100 97 97 Oxygen O2 Source Room air - Labs Labs: Laboratory Tests 03/30/23 03/30/23 12:52 12:52 WBC 12.1 H RBC 3.69 L Hgb 10.9 L Hct 34.9 L MCV 94.6 MCH 29.5 MCHC 31.2 L RDW 14.6 Plt Count 373 MPV 9.4 Neut # (Auto) 9.2 H Lymph # (Auto) 1.3 L [place] # (Auto) 1.1 H Eos # (Auto) 0.4 Baso # (Auto) 0.1 Absolute Nucleated RBC 0.00 Nucleated RBC % 0.0 Sodium 138 Potassium 4.8 Chloride 96 L Carbon Dioxide 31 Anion Gap 11.0 BUN 44 H Creatinine 1.5 H Estimated GFR (MDRD) 34 L Glucose 122 H Calcium 9.2 Total Bilirubin 0.3 AST 24 ALT 21 Alkaline Phosphatase 131 H Total Protein 7.5 Albumin 3.9 Globulin 3.6 Albumin/Globulin Ratio 1.1 Lipase 35 PD Medical Decision Making - ED course Complexity details: considered differential, d/w patient Reviewed Lab Results: We reviewed a complete blood count showing a mildly elevated white blood cell count of 12.1 hemoglobin of 10.9 and hematocrit of 34.9 these are consistent with the patient's previous values reviewed chemistries which showed a elevated BUN and creatinine consistent with dehydration. ED course: 77-year-old female with chronic abdominal pain has a flare in her nausea and has not been able to adequately hydrate. She has had this happen to her previously and she request treatment. She is administered 2 L of saline a milligram of Dilaudid and 4 mg of Zofran and she felt markedly improved at the time of discharge. Departure - Departure Disposition: 01 Home, Self Care Clinical Impression: Chronic abdominal pain, Dehydration Condition: Stable Instructions: Abdominal Pain, ED Dehydration Follow-Up: Martin Parekh DO [Primary Care Provider] - Comments: Dinah today it looks like you were fairly dehydrated and we have given you fluids. We have also have given a rescue dose of pain medication. Follow-up with your pain clinic at the [facility] as planned. Discharge Date/Time: 03/30/23 15:32
[2023-03-30 12:57] LABS: BASOPHILS # (AUTO) 0.1 10^3/uL (0.0-0.1); BASOPHILS % (AUTO) 0.7 %; EOSINOPHILS # (AUTO) 0.4 10^3/uL (0.0-0.7); EOSINOPHILS % (AUTO) 3.3 %; HCT - HEMATOCRIT 34.9 % (37.0-47.0); HGB - HEMOGLOBIN 10.9 g/dL (12.0-16.0); LYMPHOCYTES # (AUTO) 1.3 10^3/uL (1.5-3.5); LYMPHOCYTES % (AUTO) 10.4 %; MEAN CORPUSCULAR HEMOGLOBIN 29.5 pg (27.0-31.0); MEAN CORPUSCULAR HGB CONC 31.2 g/dL (32.0-36.0); MEAN CORPUSCULAR VOLUME 94.6 fL (81.0-99.0); MEAN PLATELET VOLUME 9.4 fL (7.9-10.8); MONOCYTES # (AUTO) 1.1 10^3/uL (0.0-1.0); MONOCYTES % (AUTO) 8.9 %; NEUTROPHILS # (AUTO) 9.2 10^3/uL (1.5-6.6); NEUTROPHILS % (AUTO) 76.2 %; PLT - PLATELET COUNT 373 10^3/uL (130-450); RED BLOOD COUNT 3.69 10^6/uL (4.20-5.40); RED CELL DISTRIBUTION WIDTH 14.6 % (12.0-15.0); WHITE BLOOD COUNT 12.1 x10^3/uL (4.8-10.8)
[2023-03-30 13:09] LABS: ALBUMIN 3.9 g/dL (3.2-5.5); ALBUMIN/GLOBULIN RATIO 1.1 (1.0-2.2); BILIRUBIN,TOTAL 0.3 mg/dL (0.2-1.0); CALCIUM 9.2 mg/dL (8.5-10.3); CREATININE 1.5 mg/dL (0.4-1.0); POTASSIUM 4.8 mmol/L (3.5-5.0); TOTAL PROTEIN 7.5 g/dL (6.7-8.2)
[2023-03-30 15:27] VITALS: BP 135/106
== END 2023-03-30 15:32 | disposition home or self-care (01) ==
LOC: ED 12:22
DX: R10.9 Unspecified abdominal pain (principal); G89.29 Other chronic pain; E86.0 Dehydration; I10 Essential (primary) hypertension
CPT/HCPCS: 36415; 80053; 83690; 85025; 96361; 96374; 96375; 99283; 99284; J1170

== ENCOUNTER 2023-08-28 13:39 | Outpatient (CLI) | payer MEDICARE, OTHER | END 2023-08-28 13:40 | disposition home or self-care (01) | LOC: DI 13:39 | PROVIDERS: ATTEND Nurse Practitioner Family | DX: Z53.9 Procedure and treatment not carried out, unspecified reason (principal) ==

== ENCOUNTER 2023-12-25 12:54 | Outpatient (CLI) | payer MEDICARE, OTHER ==
--- NOTE | 2023-12-25 13:24 | Sleep Patient Instructions ---
Sleep Center Visit Summary - Patient Visit Information Reason for Visit: Annual Visit - Patient Instructions Additional Instructions: You will continue with CPAP therapy with pressure set at 12 cmH2O. A supply prescription will be updated with your DME. We encourage you to continue to try to lose weight. Please follow up with the sleep care office in 1 year. - Clinic Information Contact: Located within [facility] [address] [place] [address] [email or web address] T: [phone]
--- NOTE | 2023-12-25 13:27 | SLEEP CARE CONSULTATION ---
Information from patient questionnaire entered by Kale Marcos. I have reviewed and concur with the information entered by Kale Marcos. This document represents the service I personally performed and the decisions made by me, Pamela Devi ARNP. History of Present Illness Service Date and Time: 12/25/2023 1254 Previous diagnosis: Severe, Obstructive Sleep Apnea-Hypopnea Syndrome AHI: 51.3 (in 2014) Reason for follow up: annual (LAST SEEN 12/2022) Equipment type: CPAP (PANIAGUA Dreamstation recertified; NEED SD CARD) Equipment obtained from: [email or web address] (getting supplies) Mask style: Nasal pillows Mask brand: Instantis (Brevida, small/ex small cushion) Backup mask available: Yes (old mask) Last cushion change: last week Prior sleep studies: Yes Year and Where: 2014 - [facility] Type of Sleep Study: Polysomnography HPI additional information: KERRI BECK was diagnosed to have severe, AHI 51.3, obstructive sleep apnea-hypopnea syndrome and returned today for CPAP therapy annual follow-up. Sleep Study - Results Type of Sleep Study: Polysomnography Prior sleep studies: Yes Year and Where: 2014 - [facility] CPAP Compliance Data - Data Reviewed with Patient Average duration of nightly device use: 7 hours 4 minutes Compliance rate %: 97.8 (90/90 days used) Current pressure setting (cmH2O): 12 Average residual AHI: 4.7 Central apnea: 1.0 Obstructive apnea: 1.3 Hypopnea: 2.4 Average large leak: 55 mins 14 secs Compliance data discussion: Her year data shows 361/365 days used. 95.3% compliance with machine and AHI 3.9. Subjective Missed days of use due to: reports: illness (in hospital for pancreatitis flare) Patient concerns: reports: dry mouth, nose, throat (when first wake up; nothing bad). denies: aerophagia, mask discomfort, air blowing in eyes, mask leak noise, condensation in mask/hose, nasal congestion, epistaxis Observed to snore while using device: No Current pressure setting perceived as: comfortable On therapy, patient: reports: sleeping better, awakening more refreshed, being more awake and alert during the day, more rested overall. denies: drowsiness while driving Initial [place] Sleepiness Scale score: 10 (in 2014) Current [place] Sleepiness Scale score: 7 (12/25/23) Allergies and Home Medications Known drug allergies: Yes (as listed) Drug allergies reviewed: Yes Home medication list reviewed: Yes (no changes) Allergy and home medication list: Allergies desipramine Allergy (Verified 12/23/23 13:37) fuzzy head levofloxacin [From Levaquin] Allergy (Verified 12/23/23 13:37) Rash lisinopril [From Zestril] Allergy (Verified 12/23/23 13:37) unknown nortriptyline [Nortriptyline] Allergy (Verified 12/23/23 13:37) fuzzy head tramadol HCl * [From Ultram] Allergy (Verified 12/23/23 13:37) fuzzy head adhesive tape Adverse Reaction (Intermediate, Verified 12/23/23 13:37) Itching Home Medications Medication Instructions Recorded Confirmed Last Taken Type Atenolol 75 mg PO DAILY 06/28/13 12/25/23 04/01/17 History Atorvastatin Calcium [Lipitor] 60 mg PO HS 06/28/13 12/25/23 04/01/17 History Salmeterol [Serevent] 1 puffs INH BID 06/28/13 12/25/23 04/02/17 History Levothyroxine [Synthroid] 112 mcg PO DAILY 04/03/15 12/25/23 04/01/17 History Gabapentin [Neurontin] 200 mg PO HS 10/28/20 12/25/23 Unknown History Lipase/Protease/Amylase [Creon Dr 4 cap PO TIDWM 08/30/21 12/25/23 Unknown History 12,000 Unit Capsule] Montelukast [Singulair] 10 mg PO DAILY 08/30/21 12/25/23 Unknown History Oxycodone HCl/Acetaminophen 1 tab PO Q8H PRN 08/30/21 12/25/23 Unknown History [Percocet 5-325 mg Tablet] Furosemide [Lasix] 40 - 80 mg PO DAILY PRN #0 09/03/21 12/25/23 Unknown Rx Multivitamin W/Minerals [Theragran 1 tab PO DAILYWM tablet 09/03/21 12/25/23 Unknown Rx M] Spironolactone [Aldactone] 75 mg PO DAILY #0 09/03/21 12/25/23 Unknown Rx Fluticasone [Flonase] See Rx Instructions .ROUTE .COMPLEX 12/25/23 12/25/23 Unknown History HYDROmorphone [Dilaudid] See Rx Instructions .ROUTE .COMPLEX 12/25/23 12/25/23 Unknown History Lipase/Protease/Amylase See Rx Instructions .ROUTE .COMPLEX 12/25/23 12/25/23 Unknown History [Pancrelipase Dr 5,000/17,000/24,000 Snf] ONDANSETRON ODT Prepack 2 [ZOFRAN See Rx Instructions .ROUTE .COMPLEX 12/25/23 12/25/23 Unknown History ODT] Oxycodone HCl/Acetaminophen See Rx Instructions .ROUTE .COMPLEX 12/25/23 12/25/23 Unknown History [Percocet 10-325 mg Tablet] Pantoprazole [Protonix] See Rx Instructions .ROUTE .COMPLEX 12/25/23 12/25/23 Unknown History Review of Systems Review of systems same as previous: Yes (NO CHANGE) Physical Exam Vital signs obtained and entered by: KALE Steen MA Blood Pressure: 125/63 (RIGHT ARM) Cuff size: regular Heart Rate: 60 O2 Saturation: 96 Height: 5 ft 3.5 in Weight: 150 lb Body Mass Index: 26.2 BMI Classification: Overweight Impression and Plan 1. Obstructive Sleep Apnea-Hypopnea Syndrome, severe, with good treatment compliance and good apnea control. On CPAP therapy, the patient has better sleep quality and is more rested overall. Patient has significant improvement of their sleep apnea and is satisfied with current CPAP therapy. Patient has some dry mouth in the morning but she states that much. She does use the humidifier and a chinstrap with her nasal pillows mask. I advised her to check to see if her chin strap is needing to be replaced because sometimes they do wear out and she will check. We will follow-up with her next year. Patient's apnea severity and rationale for treatment to reduce apnea, improve sleep quality and reduce cardiovascular and cerebrovascular events was reviewed. I also reviewed the benefit of consistent device use of CPAP for hypertension and gastric reflux. 2. Overweight, unspecified. Currently patients BMI is 26.2. Obesity increases the risk of apnea, CPAP pressure requirements and overall health risks especially cardiovascular and diabetes. Thus patient is advised to lose weight. * Continue CPAP pressure at 12 cmH2O * Update supply prescription * Notify me if snoring with mask or feeling that the pressure is too much or too little * Attempt to lose weight * Call this office if any problems using CPAP * Return for follow up in 12 months, or sooner if concerns arise Counseling Topics: Spare mask, Weight loss health impact Prescriptions: Device supplies Follow up with Sleep Care in: 1 year Visit Type: In Office Time Spent with Patient (minutes): 23 Provider Statement: I spent 100% of the Face to Face Visit with the patient with greater than 50% spent counseling the patient and coordination of care.
[2023-12-25 13:28] VITALS: BP 125/63; O2SAT 96
== END 2023-12-25 12:55 | disposition home or self-care (01) ==
LOC: SC 12:54
PROVIDERS: ATTEND Nurse Practitioner Family
DX: G47.33 Obstructive sleep apnea (adult) (pediatric) (principal); E66.3 Overweight; Z68.26 Body mass index [BMI] 26.0-26.9, adult
CPT/HCPCS: 99213; G0463; 99212

== ENCOUNTER 2024-01-30 10:39 | Emergency (ER) | payer MEDICARE, OTHER ==
--- NOTE | 2024-01-30 12:16 | XRAY Report ---
PROCEDURE: Chest 2V INDICATIONS: dyspnea TECHNIQUE: 2 views of the chest were acquired. COMPARISON: 08/29/2021. FINDINGS: Surgical changes and devices: None. Lungs and pleura: No pleural effusions or pneumothorax. Lungs are clear. Mediastinum: Mediastinal contours appear normal. Heart size is normal. Bones and chest wall: No suspicious bony lesions. Overlying soft tissues appear unremarkable. IMPRESSION: No acute cardiopulmonary process. Reviewed by: Meek Robles MD on 01/30/2024 12:15 PM PDT Approved by: Meek Robles MD on 01/30/2024 12:15 PM PDT Station ID: [id number]
[2024-01-30 12:18] LABS: BASOPHILS # (AUTO) 0.1 10^3/uL (0.0-0.1); BASOPHILS % (AUTO) 1.1 %; EOSINOPHILS # (AUTO) 0.7 10^3/uL (0.0-0.7); EOSINOPHILS % (AUTO) 6.8 %; HCT - HEMATOCRIT 34.2 % (37.0-47.0); HGB - HEMOGLOBIN 10.2 g/dL (12.0-16.0); LYMPHOCYTES # (AUTO) 1.1 10^3/uL (1.5-3.5); MEAN CORPUSCULAR HEMOGLOBIN 26.9 pg (27.0-31.0); MEAN CORPUSCULAR HGB CONC 29.8 g/dL (32.0-36.0); MEAN CORPUSCULAR VOLUME 90.2 fL (81.0-99.0); MEAN PLATELET VOLUME 9.4 fL (7.9-10.8); MONOCYTES # (AUTO) 1.4 10^3/uL (0.0-1.0); MONOCYTES % (AUTO) 13.5 %; NEUTROPHILS # (AUTO) 7.3 10^3/uL (1.5-6.6); NEUTROPHILS % (AUTO) 68.2 %; PLT - PLATELET COUNT 372 10^3/uL (130-450); RED BLOOD COUNT 3.79 10^6/uL (4.20-5.40); RED CELL DISTRIBUTION WIDTH 15.9 % (12.0-15.0); WHITE BLOOD COUNT 10.7 x10^3/uL (4.8-10.8)
--- NOTE | 2024-01-30 12:19 | ED Physician Documentation ---
PD HPI DYSPNEA - Stated complaint Stated Complaint: SOA - Chief complaint Chief Complaint: General - History obtained from History obtained from: Patient - History of Present Illness Timing - onset: How many weeks ago (2) Timing - onset during: Rest, Light activity Timing - duration: Weeks (2 weeks of increasing dyspnea with little activity, and some increasing swelling both lower legs. No notable recent travel. No calf tenderness per se.) Timing - details: Gradual onset, Still present Inciting event(s): No: Out of meds (not out of meds. Had had Lasix dose decreased severl months ago due to elevated creatinine.), Immobilization/travel Improved by: Rest, Sitting up Worsened by: Exertion, Laying flat, Coughing Associated symptoms: No: Fever, Cough Review of Systems Constitutional: denies: Fever, Chills Nose: denies: Rhinorrhea / runny nose, Congestion Throat: denies: Sore throat Cardiac: reports: Pedal edema. denies: Chest pain / pressure, Palpitations, Calf pain Respiratory: reports: Dyspnea, Wheezing. 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, 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, Breast reduction - Present Medications Home Medications: Ambulatory Orders Medication Instructions Recorded Confirmed Atenolol 75 mg PO DAILY 06/28/13 12/25/23 Atorvastatin Calcium [Lipitor] 60 mg PO HS 06/28/13 12/25/23 Salmeterol [Serevent] 1 puffs INH BID 06/28/13 12/25/23 Levothyroxine [Synthroid] 112 mcg PO DAILY 04/03/15 12/25/23 Gabapentin [Neurontin] 200 mg PO HS 10/28/20 12/25/23 Lipase/Protease/Amylase [Creon Dr 4 cap PO TIDWM 08/30/21 12/25/23 12,000 Unit Capsule] Montelukast [Singulair] 10 mg PO DAILY 08/30/21 12/25/23 Oxycodone HCl/Acetaminophen 1 tab PO Q8H PRN 08/30/21 12/25/23 [Percocet 5-325 mg Tablet] Furosemide [Lasix] 40 - 80 mg PO DAILY PRN #0 09/03/21 12/25/23 Multivitamin W/Minerals [Theragran 1 tab PO DAILYWM tablet 09/03/21 12/25/23 M] Spironolactone [Aldactone] 75 mg PO DAILY #0 09/03/21 12/25/23 Fluticasone [Flonase] See Rx Instructions .ROUTE .COMPLEX 12/25/23 12/25/23 HYDROmorphone [Dilaudid] See Rx Instructions .ROUTE .COMPLEX 12/25/23 12/25/23 Lipase/Protease/Amylase See Rx Instructions .ROUTE .COMPLEX 12/25/23 12/25/23 [Pancrelipase Dr 5,000/17,000/24,000 Detention] ONDANSETRON ODT Prepack 2 [ZOFRAN See Rx Instructions .ROUTE .COMPLEX 12/25/23 12/25/23 ODT] Oxycodone HCl/Acetaminophen See Rx Instructions .ROUTE .COMPLEX 12/25/23 12/25/23 [Percocet 10-325 mg Tablet] Pantoprazole [Protonix] See Rx Instructions .ROUTE .COMPLEX 12/25/23 12/25/23 - Allergies Allergies/Adverse Reactions: Allergies Allergy/AdvReac Type Severity Reaction Status Date / Time desipramine Allergy fuzzy head Verified 01/30/24 10:43 levofloxacin [From Levaquin] Allergy Rash Verified 01/30/24 10:43 lisinopril [From Zestril] Allergy unknown Verified 01/30/24 10:43 nortriptyline [Nortriptyline] Allergy fuzzy head Verified 01/30/24 10:43 tramadol HCl * [From Ultram] Allergy fuzzy head Verified 01/30/24 10:43 adhesive tape AdvReac Intermediate Itching Verified 01/30/24 10:43 - Social History Does the pt smoke?: No Smoking Status: Never smoker Does the pt drink ETOH?: Yes Does the pt have substance abuse?: No - Immunizations Immunizations are current?: Yes PD ED PE NORMAL - Vitals Vital signs reviewed: Yes (good sats 100% RA. ) - General General: Alert and oriented X 3, No acute distress, Well developed/nourished - Neck Neck: Supple, no meningeal sign, No adenopathy - Cardiac Cardiac: RRR, No murmur - Respiratory Respiratory: No respiratory distress. No: Clear bilaterally (some exp wheezing cetnrally and with cough. No coarse sounds in lower lungs. no fine crackles. ) - Abdomen Abdomen: Soft, Non tender - Derm Derm: Normal color, Warm and dry - Extremities Extremities: No calf tenderness / cord, Other (has edema nontender in both lower legs to just below the knees. ) - Neuro Neuro: Alert and oriented X 3, No motor deficit, Normal speech Results - Vitals Vitals: Oxygen O2 Source Room air - EKG (time done) 12:34 EKG releavant findings:: EKG personally interpreted by author of this note. Relevant findings are: Rate: Rate (enter#) (49) Rhythm: Sinus bradycardia [place]: Normal Intervals: 1st degree AVB QRS: Normal Ischemia: Normal ST segments. No: ST elevation c/w ischemia, ST depression - Labs Labs: Laboratory Tests 01/30/24 01/30/24 01/30/24 12:07 12:07 12:07 WBC 10.7 RBC 3.79 L Hgb 10.2 L Hct 34.2 L MCV 90.2 MCH 26.9 L MCHC 29.8 L RDW 15.9 H Plt Count 372 MPV 9.4 Neut # (Auto) 7.3 H Lymph # (Auto) 1.1 L Mills # (Auto) 1.4 H Eos # (Auto) 0.7 Baso # (Auto) 0.1 Absolute Nucleated RBC 0.00 Nucleated RBC % 0.0 PT 10.0 INR 0.9 Sodium 139 Potassium 4.0 Chloride 98 L Carbon Dioxide 34 H Anion Gap 7.0 BUN 34 H Creatinine 1.4 H Estimated GFR (MDRD) 36 L Glucose 99 Calcium 9.5 Magnesium 2.4 H Total Bilirubin 0.3 AST 18 ALT 15 Alkaline Phosphatase 111 B-Natriuretic Peptide Total Protein 7.1 Albumin 4.5 Globulin 2.6 Albumin/Globulin Ratio 1.7 01/30/24 12:07 WBC RBC Hgb Hct MCV MCH MCHC RDW Plt Count MPV Neut # (Auto) Lymph # (Auto) Mills # (Auto) Eos # (Auto) Baso # (Auto) Absolute Nucleated RBC Nucleated RBC % PT INR Sodium Potassium Chloride Carbon Dioxide Anion Gap BUN Creatinine Estimated GFR (MDRD) Glucose Calcium Magnesium Total Bilirubin AST ALT Alkaline Phosphatase B-Natriuretic Peptide 238 H Total Protein Albumin Globulin Albumin/Globulin Ratio - Rads (name of study) chest xray Relevant Findings:: Prelim report reviewed (no acute infitrates, effusion, nor PTX. ), EMP independent interpretation of test PD Medical Decision Making - ED course Complexity details: re-evaluated patient (Improved comfort of breathing with neb treatment and IV lasix with brisk diuresis over a liter. she is more comfortable going home. ), considered differential (dyspnea on exertion. History of asthma/COPD as well as some CHF. Had had Lasix decreased recently due to elevated creatinine. Now seems to have gradual fluid retention, but likely some exac COPD as well. ), d/w patient Departure - Departure Disposition: 01 Home, Self Care Clinical Impression: Dyspnea on minimal exertion, Wheezing, Bilateral leg edema, CHF (congestive heart failure), Asthma Condition: Stable Record reviewed to determine appropriate education?: Yes Instructions: ED CHF General Follow-Up: Martin Parekh DO [Primary Care Provider] - Comments: Your chest x-ray does show some moderate vascular congestion. Your blood tests gaging pressure of the heart called the BNP is moderately elevated. However it does not look significantly elevated or on x-ray. I think we can just increase your furosemide from 40 mg a day to 40 mg twice a day (morning and just after lunch) for the next week and see if you have decreased edema from that. Your creatinine/kidney function is 1.4 today, similar to a 1.5 level you had last March. I presume you have had other tests in the interim but that would be probably in Dr. Valdovinos's office. I think your kidney function has room to spare to bump your Lasix for at least a week. Additionally I would suggest using your albuterol inhaler 2 to 3 puffs 4 times daily for the next several days to a week. You do have wheezing on exam and some of your shortness of breath may relate to that. Follow-up with Dr. Coreas me this coming week, call for an appointment. See how much better you are doing. The echocardiogram of the heart is a reasonable idea. With contacting Dr. Valdovinos's office, see if they may be able to reorder it on a different priority status such as urgent or so so its less than the scheduled end of February. Your primary care may want to consider a stress test as well to ensure there is not angina or diminished blood flow to the Forms: PCP List Discharge Date/Time: 01/30/24 15:00
[2024-01-30 12:22] LABS: INR 0.9 (0.8-1.2)
[2024-01-30 12:27] LABS: MAGNESIUM 2.4 mg/dL (1.7-2.3)
[2024-01-30 12:33] LABS: ALBUMIN 4.5 g/dL (3.2-5.5); ALBUMIN/GLOBULIN RATIO 1.7 (1.0-2.2); BILIRUBIN,TOTAL 0.3 mg/dL (0.2-1.0); CALCIUM 9.5 mg/dL (8.5-10.3); CREATININE 1.4 mg/dL (0.6-1.3); TOTAL PROTEIN 7.1 g/dL (6.4-8.9)
[2024-01-30] MEDS: FUROSEMIDE 40 MG/4 ML VIAL IVP STA (13:19)
[2024-01-30 14:53] VITALS: BP 124/51; O2SAT 95
== END 2024-01-30 15:00 | disposition home or self-care (01) ==
LOC: ED 10:39
DX: I11.0 Hypertensive heart disease with heart failure (principal); I50.9 Heart failure, unspecified; J44.89 Other specified chronic obstructive pulmonary disease; R06.09 Other forms of dyspnea; R06.2 Wheezing
CPT/HCPCS: 36415; 80053; 83735; 83880; 85025; 85610; 93005; 96374; 99284

== ENCOUNTER 2024-02-04 11:37 | Outpatient (CLI) | payer MEDICARE, OTHER | END 2024-02-04 11:38 | disposition home or self-care (01) | LOC: DI 11:37 | PROVIDERS: ATTEND Student in an Organized Health Care Education/Training Program | DX: R60.9 Edema, unspecified (principal); I07.1 Rheumatic tricuspid insufficiency | CPT/HCPCS: 93307 ==

== ENCOUNTER 2024-02-07 20:37 | Outpatient (CLI) | payer MEDICARE, OTHER | END 2024-02-07 23:59 | disposition critical access hospital (66) | LOC: EMS 20:37 | DX: R53.1 Weakness (principal); R26.81 Unsteadiness on feet; R11.0 Nausea; R50.9 Fever, unspecified | CPT/HCPCS: A0425; A0429 ==

== ENCOUNTER 2024-02-07 20:52 | Inpatient (IN) | payer MEDICARE, OTHER ==
--- NOTE | 2024-02-07 21:00 | ED Physician Documentation ---
History of Present Illness - Stated complaint Stated Complaint: GEN WEAKNESS - Chief complaint Chief Complaint: General - History obtained from History obtained from: Patient, EMS - Additonal information Additional information: BIBA. HPI is from patient as well as from EMS. Limited information on my HPI/ROS from patient due to drowsiness; she occasionally falls asleep during conversation and frequently provides vague and/or uncertain answers to my questions. However, she is oriented x 3. Patient tells me she has been "sleepy all day" (per patient). She describes generalized weakness and fatigue since this morning. She denies fevers although she is febrile in the ED. She denies shortness of breath, cough although she is mildly hypoxic in the ED. She does not use oxygen at home; she tells me "I used to, but my doctor told me I did not need it anymore". Review of Systems Unable to obtain: Other (answers as recorded below although she seems uncertain with many of these answers) Constitutional: reports: Other (febrile in ED but unaware of fevers at home) Cardiac: reports: Pedal edema. denies: Chest pain / pressure Respiratory: denies: Dyspnea, Cough GI: denies: Abdominal Pain, Nausea, Vomiting : denies: Dysuria, Frequency Neurologic: reports: Generalized weakness. 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, Breast reduction - Present Medications Home Medications: Ambulatory Orders Medication Instructions Recorded Confirmed Atenolol 75 mg PO DAILY 06/28/13 02/07/24 Atorvastatin Calcium [Lipitor] 60 mg PO HS 06/28/13 02/07/24 Salmeterol [Serevent] 1 puffs INH BID 06/28/13 02/07/24 Levothyroxine [Synthroid] 112 mcg PO DAILY 04/03/15 02/07/24 Lipase/Protease/Amylase [Akhil [place] 4 cap PO TIDWM 08/30/21 02/07/24 12,000 Unit Capsule] Montelukast [Singulair] 10 mg PO DAILY 08/30/21 02/07/24 Furosemide [Lasix] 40 - 80 mg PO DAILY PRN #0 09/03/21 02/07/24 Multivitamin W/Minerals [Theragran 1 tab PO DAILYWM tablet 09/03/21 02/07/24 M] Fluticasone [Flonase] See Rx Instructions .ROUTE .COMPLEX 12/25/23 02/07/24 HYDROmorphone [Dilaudid] See Rx Instructions .ROUTE .COMPLEX 12/25/23 02/07/24 ONDANSETRON ODT Prepack 2 [ZOFRAN 8 mg PO QPM 12/25/23 02/07/24 ODT] Pantoprazole [Protonix] See Rx Instructions .ROUTE .COMPLEX 12/25/23 02/07/24 Gabapentin [Neurontin] 300 mg PO HS 02/07/24 02/07/24 Oxycodone HCl/Acetaminophen 1 each PO TID PRN 02/07/24 02/07/24 [Percocet 10-325 mg Tablet] Celecoxib 200 mg PO BID 02/08/24 02/08/24 Finasteride [Propecia] 1 mg PO DAILY 02/08/24 02/08/24 Mometasone Furoate [Asmanex] 220 mcg IH BID 02/08/24 02/08/24 Spironolactone [Aldactone] 25 mg PO TID 02/08/24 02/08/24 - Allergies Allergies/Adverse Reactions: Allergies Allergy/AdvReac Type Severity Reaction Status Date / Time desipramine Allergy fuzzy head Verified 02/07/24 21:02 levofloxacin [From Levaquin] Allergy Rash Verified 02/07/24 21:02 lisinopril [From Zestril] Allergy unknown Verified 02/07/24 21:02 nortriptyline [Nortriptyline] Allergy fuzzy head Verified 02/07/24 21:02 tramadol HCl * [From Ultram] Allergy fuzzy head Verified 02/07/24 21:02 adhesive tape AdvReac Intermediate Itching Verified 02/07/24 21:02 - Social History Does the pt smoke?: No Smoking Status: Never smoker Does the pt drink ETOH?: Yes Does the pt have substance abuse?: No - Immunizations Immunizations are current?: Yes PD ED PE NORMAL - Vitals Vital signs reviewed: Yes - General General: No acute distress, Well developed/nourished, Other (drowsy, awakens to voice, occasionally falling asleep during HPI/ROS. oriented x 3 although takes inordinate amount of time to recall year) - HEENT HEENT: Other (parched mucous membranes) - Cardiac Cardiac: RRR - Respiratory Respiratory: No respiratory distress - Abdomen Abdomen: Soft, Non tender - Back Back: No CVA TTP - Derm Derm: Normal color - Neuro Eye Opening: To Voice Motor: Obeys Commands Verbal: Oriented GCS Score: 14 PD ED PE EXPANDED - Cardiac Cardiac: Murmur Present (3/6 STEPHANIE most prominent at apex) - Respiratory Respiratory: Rhonchi (bilateral mid-lung field rhonchi) - Derm Derm: Other (feels hot to touch) Results - Vitals Vitals: Oxygen O2 Source Nasal cannula Oxygen Flow Rate 2 - Labs Labs: Microbiology 02/07/24 21:36 Blood Culture - Preliminary Blood NO GROWTH AFTER 1 DAY 02/07/24 21:30 Blood Culture - Preliminary Blood - Left Arm NO GROWTH AFTER 1 DAY Laboratory Tests 02/07/24 02/07/24 02/07/24 20:56 21:30 21:30 WBC 22.3 H RBC 3.49 L Hgb 9.4 L Hct 30.6 L MCV 87.7 MCH 26.9 L MCHC 30.7 L RDW 16.1 H Plt Count 345 MPV 9.4 Neut # (Auto) Not Reportable Lymph # (Auto) Not Reportable [place] # (Auto) Not Reportable Eos # (Auto) Not Reportable Baso # (Auto) Not Reportable Absolute Nucleated RBC Not Reportable Total Counted 100 Band Neuts % (Manual) 2 Abnorm Lymph % (Manual) 0 Nucleated RBC % Not Reportable Neutrophils # (Manual) 20.3 H Lymphocytes # (Manual) 0.4 L Monocytes # (Manual) 1.6 H Eosinophils # (Manual) 0.0 Basophils # (Manual) 0.0 Differential Comment MANUAL DIFFERENTIAL Platelet Estimate NORMAL (130-450,000) Platelet Morphology NORMAL APPEARANCE RBC Morph Micro Appear NORMAL APPEARANCE Sodium 138 Potassium 3.7 Chloride 99 L Carbon Dioxide 32 Anion Gap 7.0 BUN 34 H Creatinine 1.3 Estimated GFR (MDRD) 40 L Glucose 139 H Lactic Acid Calcium 9.2 Total Bilirubin 0.9 AST 20 ALT 20 Alkaline Phosphatase 101 B-Natriuretic Peptide Total Protein 6.8 Albumin 3.9 Globulin 2.9 Albumin/Globulin Ratio 1.3 Lipase < 10 L TSH 0.36 Urine Color Urine Clarity Urine pH Ur Specific [place] Urine Protein Urine Glucose (UA) Urine Ketones Urine Occult Blood Urine Nitrite Urine Bilirubin Urine Urobilinogen Ur Leukocyte Esterase Urine RBC Urine WBC Ur Squamous Epith Cells Urine Bacteria Ur Microscopic Review Urine Culture Comments Nasal Adenovirus (PCR) NOT DETECTED Nasal B. parapertussis DNA (PCR) NOT DETECTED Nasal Coronavir 229E PCR NOT DETECTED Nasal Coronavir HKU1 PCR NOT DETECTED Nasal Coronavir NL63 PCR NOT DETECTED Nasal Coronavir OC43 PCR NOT DETECTED Nasal Enterovir/Rhinovir PCR NOT DETECTED Nasal Influenza B PCR NOT DETECTED Nasal Influenza A PCR NOT DETECTED Nasal Parainfluen 1 PCR NOT DETECTED Nasal Parainfluen 2 PCR NOT DETECTED Nasal Parainfluen 3 PCR NOT DETECTED Nasal Parainfluen 4 PCR NOT DETECTED Nasal RSV (PCR) NOT DETECTED Nasal B.pertussis DNA PCR NOT DETECTED Nasal C.pneumoniae (PCR) NOT DETECTED Josafat Human Metapneumo PCR NOT DETECTED Nasal M.pneumoniae (PCR) NOT DETECTED Nasal SARS-CoV-2 (PCR) NOT DETECTED 02/07/24 02/07/24 02/07/24 21:30 21:30 22:12 WBC RBC Hgb Hct MCV MCH MCHC RDW Plt Count MPV Neut # (Auto) Lymph # (Auto) [place] # (Auto) Eos # (Auto) Baso # (Auto) Absolute Nucleated RBC Total Counted Band Neuts % (Manual) Abnorm Lymph % (Manual) Nucleated RBC % Neutrophils # (Manual) Lymphocytes # (Manual) Monocytes # (Manual) Eosinophils # (Manual) Basophils # (Manual) Differential Comment Platelet Estimate Platelet Morphology RBC Morph Micro Appear Sodium Potassium Chloride Carbon Dioxide Anion Gap BUN Creatinine Estimated GFR (MDRD) Glucose Lactic Acid 1.0 Calcium Total Bilirubin AST ALT Alkaline Phosphatase B-Natriuretic Peptide 476 H Total Protein Albumin Globulin Albumin/Globulin Ratio Lipase TSH Urine Color YELLOW Urine Clarity CLEAR Urine pH 8.0 H Ur Specific [place] 1.010 Urine Protein TRACE Urine Glucose (UA) NEGATIVE Urine Ketones NEGATIVE Urine Occult Blood NEGATIVE Urine Nitrite NEGATIVE Urine Bilirubin NEGATIVE Urine Urobilinogen 0.2 (NORMAL) Ur Leukocyte Esterase SMALL H Urine RBC 0-5 Urine WBC 6-10 H Ur Squamous Epith Cells MANY Squamous H Urine Bacteria Rare Ur Microscopic Review INDICATED Urine Culture Comments NOT INDICATED Nasal Adenovirus (PCR) Nasal B. parapertussis DNA (PCR) Nasal Coronavir 229E PCR Nasal Coronavir HKU1 PCR Nasal Coronavir NL63 PCR Nasal Coronavir OC43 PCR Nasal Enterovir/Rhinovir PCR Nasal Influenza B PCR Nasal Influenza A PCR Nasal Parainfluen 1 PCR Nasal Parainfluen 2 PCR Nasal Parainfluen 3 PCR Nasal Parainfluen 4 PCR Nasal RSV (PCR) Nasal B.pertussis DNA PCR Nasal C.pneumoniae (PCR) Josafat Human Metapneumo PCR Nasal M.pneumoniae (PCR) Nasal SARS-CoV-2 (PCR) - Rads (name of study) chest xray Relevant Findings:: Prelim report reviewed, EMP independent interpretation of test (I reviewed these images and my interpretation is right middle lobe infiltrate with possible early left peripheral infiltrate ), See rad report PD Medical Decision Making - ED course Complexity details: reviewed results, re-evaluated patient, considered differential, d/w patient ED course: Patient arrives febrile and hypoxic as well as very drowsy. Significant leukocytosis with white blood cell count 22,000. Chest x-ray shows bilateral infiltrates consistent with pneumonia. Fortunately, her lactate is only 1.0 (normal value). Additionally, she does not have any hypotension during ED stay. Her pulse ox corrects to mid/upper 90s with 3 L nasal cannula oxygen. She is given 500 cc normal saline bolus, 1 g IV ceftriaxone, and 500 mg IV azithromycin. Blood cultures were drawn and sent prior to administration of the antibiotics. Urinalysis also obtained and minimal findings on urinalysis of 6- 10 white blood cells per high-power field but significant squamous cells present, as well. On reevaluation after tests are resulted, the patient is significantly more al ert. She is answering questions more rapidly and confidently and no longer is falling asleep during conversation. I discussed the results of these tests with the patient and the findings of pneumonia on the chest x-ray. She is understanding of, and agreeable to, plan to admit inpatient for IV antibiotics to treat the pneumonia as well as ongoing supplemental oxygen until her hypoxia resolves as the pneumonia improves. I discussed this case with the [facility] telehealth physician on duty who accepts patient to [facility] hospitalist service. Departure - Departure Disposition: 66 [facility] DC/Xfer Clinical Impression: Pneumonia Qualifiers: Pneumonia type: due to unspecified organism Laterality: right Lung location: middle lobe of lung Qualified Code(s): J18.9 - Pneumonia, unspecified organism Condition: Stable Discharge Date/Time: 02/08/24 00:30
[2024-02-07] MEDS: SODIUM CHLORIDE 0.9% 500 ML IV STA (21:23)
[2024-02-07] MEDS: ACETAMINOPHEN 325 MG TABLET PO STA (21:23)
[2024-02-07 21:41] LABS: BASOPHILS % (AUTO) 0.4 %; HCT - HEMATOCRIT 30.6 % (37.0-47.0); HGB - HEMOGLOBIN 9.4 g/dL (12.0-16.0); LYMPHOCYTES % (AUTO) 1.6 %; MEAN CORPUSCULAR HEMOGLOBIN 26.9 pg (27.0-31.0); MEAN CORPUSCULAR HGB CONC 30.7 g/dL (32.0-36.0); MEAN CORPUSCULAR VOLUME 87.7 fL (81.0-99.0); MEAN PLATELET VOLUME 9.4 fL (7.9-10.8); MONOCYTES % (AUTO) 6.4 %; NEUTROPHILS % (AUTO) 90.9 %; PLT - PLATELET COUNT 345 10^3/uL (130-450); RED BLOOD COUNT 3.49 10^6/uL (4.20-5.40); RED CELL DISTRIBUTION WIDTH 16.1 % (12.0-15.0); WHITE BLOOD COUNT 22.3 x10^3/uL (4.8-10.8)
[2024-02-07 21:43] LABS: ABNORMAL LYMPHS % (MANUAL) 0 %
[2024-02-07 22:06] LABS: BAND NEUTROPHILS % (MANUAL) 2 %; DIFFERENTIAL COMMENT MANUAL DIFFERENTIAL; LYMPHOCYTES # (MANUAL) 0.4 10^3/uL (1.5-3.5); LYMPHOCYTES % (MANUAL) 2 %; MONOCYTES # (MANUAL) 1.6 10^3/uL (0.0-1.0); NEUTROPHILS # (MANUAL) 20.3 10^3/uL (1.5-6.6); PLATELET ESTIMATE, MANUAL NORMAL (130-450,000) (NORMAL); PLATELET MORPHOLOGY NORMAL APPEARANCE (NORMAL); RBC MORPHOLOGY (MULTIPLE) NORMAL APPEARANCE (NORMAL)
[2024-02-07 22:09] LABS: ALBUMIN 3.9 g/dL (3.2-5.5); ALBUMIN/GLOBULIN RATIO 1.3 (1.0-2.2); ALKALINE PHOSPHATASE 101 IU/L (42-121); ALT ALANINE AMINOTRANSFERASE 20 IU/L (10-60); AST ASPARTATE AMINOTRANSFERASE 20 IU/L (10-42); BILIRUBIN,TOTAL 0.9 mg/dL (0.2-1.0); BUN - BLOOD UREA NITROGEN 34 mg/dL (6-20); CALCIUM 9.2 mg/dL (8.5-10.3); CARBON DIOXIDE - CO2 32 mmol/L (21-32); CHLORIDE 99 mmol/L (101-111); CREATININE 1.3 mg/dL (0.6-1.3); GFR - MDRD 40 (>89); GLUCOSE 139 mg/dL (74-104); LIPASE < 10 U/L (11-82); POTASSIUM 3.7 mmol/L (3.5-4.5); SODIUM 138 mmol/L (135-145); TOTAL PROTEIN 6.8 g/dL (6.4-8.9)
[2024-02-07 22:16] LABS: B. PARAPERTUSSIS- RESP PCR PAN NOT DETECTED; B. PERTUSSIS- RESP PCR PANEL NOT DETECTED; C. PNEUMONIAE- RESP PCR PANEL NOT DETECTED; CORONAVIRUS 229E-RESP PCR NOT DETECTED; CORONAVIRUS HKU1-RESP PCR NOT DETECTED; CORONAVIRUS NL63-RESP PCR NOT DETECTED; CORONAVIRUS OC43-RESP PCR NOT DETECTED; HUMAN METAPNEUMOVIRUS NOT DETECTED; INFLUENZA A- RESP PCR PANEL NOT DETECTED; INFLUENZA B - RESP PCR PANEL NOT DETECTED; M. PNEUMONIAE- RESP PCR PANEL NOT DETECTED; PARAINFLUENZA VIRUS 1 NOT DETECTED; PARAINFLUENZA VIRUS 2 NOT DETECTED; PARAINFLUENZA VIRUS 3 NOT DETECTED; PARAINFLUENZA VIRUS 4 NOT DETECTED; RHINOVIRUS/ENTEROVIRUS NOT DETECTED; RSV- RESP PCR PANEL NOT DETECTED; SARS-CoV-2 -RESP PCR PANEL NOT DETECTED
[2024-02-07 22:28] LABS: BILIRUBIN,URINE NEGATIVE (NEGATIVE); GLUCOSE, URINE (UA) NEGATIVE (NEGATIVE); KETONES,URINE (UA) NEGATIVE (NEGATIVE); LEUKOCYTE ESTERASE, URINE SMALL (NEGATIVE); NITRITE,URINE NEGATIVE (NEGATIVE); OCCULT BLOOD,URINE NEGATIVE (NEGATIVE); PROTEIN,URINE TRACE mg/dL (NEGATIVE); UROBILINOGEN,URINE 0.2 (NORMAL) E.U./dL (NORMAL)
[2024-02-07] MEDS ORDERED: cefTRIAXone 1 GM VIAL ONE (22:28)
[2024-02-07 22:31] LABS: CLARITY,URINE CLEAR (CLEAR)
[2024-02-07] MEDS: cefTRIAXone 1 GM in SODIUM CHLORIDE 0.9% MINIBAG 100 ML IV STA (22:32)
[2024-02-07 22:34] LABS: BACTERIA,URINE Rare /HPF (None Seen); RBC,URINE 0-5 /HPF (0-5); SQUAMOUS EPITHELIAL CELL,UR MANY Squamous (<= Few)
--- NOTE | 2024-02-07 22:44 | XRAY Report ---
PROCEDURE: Chest 2V INDICATIONS: fever, hypoxia TECHNIQUE: 2 views of the chest were acquired. COMPARISON: Two-view similar chest study 01/30/2024.. FINDINGS: Surgical changes and devices: None. Lungs and pleura: No pleural effusions or pneumothorax. Lungs are abnormal with bilateral pneumonia through the mid chest, in areas that appeared normal 01/30/2024.. Mediastinum: Mediastinal contours appear normal. Heart size is normal. Bones and chest wall: No suspicious bony lesions. Overlying soft tissues appear unremarkable. IMPRESSION: Interval development of bilateral pneumonia, mid chest level, with reference to the recent [facility] from 01/[facility]/2024. Reviewed by: Sylvester Arrieta MD on 02/07/2024 10:42 PM PDT Approved by: Sylvester Arrieta MD on 02/07/2024 10:42 PM PDT Station ID: [id number]
[2024-02-07] MEDS: AZITHROMYCIN INJ 500 MG in SODIUM CHLORIDE 0.9% 250 ML IV STA (23:07)
--- NOTE | 2024-02-07 23:54 | HISTORY & PHYSICAL EXAMINATION ---
Chief Complaint - Chief Complaint Chief Complaint: generalized weakness History of Present Illness - Admitted From Admitted From:: home - History Obtained From History obtained from: patient + ER staff Exam Limitations: telemedicine - History of Present Illness HPI Comment/Other: Ms Arrieta is a 78 yo F with history of HTN, HLD, chronic pancreatitis, asthma. Presents to ER via EMS for weakness, confusion. Patient reports that all day today she has been feeling "out of it", weak, tired. She did not know that she had a fever. She has chronic abd pain related to history of chronic pancreatitis. She denies shortness of breath, reports cough with sputum production for the past 2 weeks, denies hemoptysis. CXR shows bilateral pneumonia. Patient has had chronic LE swelling, recent echo 02/04/24 shows normal LV/RV function. 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 Living Situation: With spouse/s.o. Social History Notes: She lives at home with her , Chago. He states that she is a non-smoker and does not drink alcohol. - POLST Patient has POLST: No Meds/Allgy - Home Medications Home Medications: Ambulatory Orders Medication Instructions Recorded Confirmed Atenolol 75 mg PO DAILY 06/28/13 02/07/24 Atorvastatin Calcium [Lipitor] 60 mg PO HS 06/28/13 02/07/24 Salmeterol [Serevent] 1 puffs INH BID 06/28/13 02/07/24 Levothyroxine [Synthroid] 112 mcg PO DAILY 04/03/15 02/07/24 Lipase/Protease/Amylase [Creon Dr 4 cap PO TIDWM 08/30/21 02/07/24 12,000 Unit Capsule] Montelukast [Singulair] 10 mg PO DAILY 08/30/21 02/07/24 Furosemide [Lasix] 40 - 80 mg PO DAILY PRN #0 09/03/21 02/07/24 Multivitamin W/Minerals [Theragran 1 tab PO DAILYWM tablet 09/03/21 02/07/24 M] Fluticasone [Flonase] See Rx Instructions .ROUTE .COMPLEX 12/25/23 02/07/24 HYDROmorphone [Dilaudid] See Rx Instructions .ROUTE .COMPLEX 12/25/23 02/07/24 ONDANSETRON ODT Prepack 2 [ZOFRAN 8 mg PO QPM 12/25/23 02/07/24 ODT] Pantoprazole [Protonix] See Rx Instructions .ROUTE .COMPLEX 12/25/23 02/07/24 Gabapentin [Neurontin] 300 mg PO HS 02/07/24 02/07/24 Oxycodone HCl/Acetaminophen 1 each PO TID PRN 02/07/24 02/07/24 [Percocet 10-325 mg Tablet] - Allergies Allergies/Adverse Reactions: Allergies Allergy/AdvReac Type Severity Reaction Status Date / Time desipramine Allergy fuzzy head Verified 02/07/24 21:02 levofloxacin [From Levaquin] Allergy Rash Verified 02/07/24 21:02 lisinopril [From Zestril] Allergy unknown Verified 02/07/24 21:02 nortriptyline [Nortriptyline] Allergy fuzzy head Verified 02/07/24 21:02 tramadol HCl * [From Ultram] Allergy fuzzy head Verified 02/07/24 21:02 adhesive tape AdvReac Intermediate Itching Verified 02/07/24 21:02 Review of Systems - Constitutional Constitutional: reports: Fatigue, Fever, Malaise, Weakness, Poor appetite - Cardiovascular Cariovascular: denies: Chest pain, Lightheadedness - Respiratory Respiratory: reports: Cough, Sputum production. denies: Wheezing, Hemoptysis, SOB at rest - Gastrointestinal Gastrointestinal: denies: Abdominal pain, Abdominal distention, Diarrhea, Na usea, Vomiting - Genitourinary Genitourinary: denies: Dysuria, Frequency, Urgency - Musculoskeletal Musculoskeletal: reports: Muscle aches. denies: Muscle pain, Back pain - Integumentary Integumentary: denies: Rash, Pruritis - Neurological Neurological: reports: General weakness. denies: Dizziness - All Other Systems All Other Systems: reports: Reviewed and negative Exam - Vital Signs Reviewed Vital Signs: Yes Vital Signs: Vital Signs x48h Temp Pulse Resp BP Pulse Ox O2 Flow Rate 02/07/24 23:00 65 25 H 106/49 L 94 2 02/07/24 22:30 68 14 117/50 L 98 2 02/07/24 21:53 37.8 C 02/07/24 21:30 74 18 124/51 L 92 2 02/07/24 20:51 38.9 C H 78 15 122/48 L 87 L - Physical Exam General Appearance: positive: No acute distress, Alert Eyes Bilateral: positive: Normal inspection ENT: positive: ENT inspection nml Neck: positive: Nml inspection Respiratory: positive: No respiratory distress Skin: positive: Color nml, No rash Extremities: positive: Pedal edema (unchanged, chronic per patient) Neurologic/Psychiatric: positive: Mood/affect nml Sepsis Event Note (H) - Evaluation Current Stage of Sepsis: Sepsis Possible source of Sepsis: positive: Pulmonary - Sepsis Criteria Sepsis Criteria: Recorded Temperature greater than 38.3C or Less than 36C, WBC count greater than 12,000 or less than 4000 Conclusion/Plan - Lab Results Lab results reviewed: Yes Fish Bones: 02/07/24 21:30 02/07/24 21:30 - Diagnostic Imaging Results Diagnostic Imaging Results: positive: Final report reviewed - Other Other Results/Comments: Sepsis secondary to community acquired pneumonia Acute hypoxic respiratory failure secondary to CAP -Pt presents with fever, elevated leukocytosis -Bilateral pneumonia/infiltrates on CXR -Lactic acid 1.0 -Viral respiratory panel neg -Continue IV ceftriaxone, IV azithromycin -Follow up blood cultures -3 L NC, not on home O2, wean as tolerated Acute metabolic encephalopathy, improved -Improved -Pt reportedly confused/lethargic at time of presentation to ER -Alert, awake and answering questions appropriately at time of my evaluation Chronic pancreatitis -Continue Creon Chronic LE edema -Pt states no longer taking aldactone and decreased lasix dose recently -Echo 02/04/24 shows normal LV/RV function -Continue Lasix HLD -Continue statin Hypothyrodism -Continue Synthroid Full code DVT ppx: Lovenox sc Core Measures - Anticipated LOS I expect patient to be DC'd or transferred within 96 hours.: Yes - DVT/VTE - Prophylaxis VTE/DVT Device ordered at admit?: Yes Telemedicine Consult Details - Provider Location & Consult Time Telemedicine consultation conducted via videoconferencing?: Yes List names and roles of persons who participated in consult:: patient Telemedicine provider location:: [facility]
[2024-02-08] MEDS ORDERED: SODIUM CHLORIDE FLUSH 0.9% 10 ML SYRINGE IVP PRN (00:03)
[2024-02-08] MEDS ORDERED: ONDANSETRON 4 MG/2 ML VIAL IVP PRN (00:03)
[2024-02-08 00:28] LABS: THYROID STIMULATING HORMONE 0.36 uIU/mL (0.34-5.60)
[2024-02-08] MEDS: SODIUM CHLORIDE FLUSH 0.9% 10 ML SYRINGE IVP SCH (00:41)
[2024-02-08] MEDS: oxyCODONE 5 MG TABLET PO PRN ×2 (04:24→22:43)
[2024-02-08] MEDS: ACETAMINOPHEN 325 MG TABLET PO PRN (04:24)
[2024-02-08 05:34] LABS: HCT - HEMATOCRIT 29.9 % (37.0-47.0); HGB - HEMOGLOBIN 9.2 g/dL (12.0-16.0); MEAN CORPUSCULAR HEMOGLOBIN 27.2 pg (27.0-31.0); MEAN CORPUSCULAR HGB CONC 30.8 g/dL (32.0-36.0); MEAN CORPUSCULAR VOLUME 88.5 fL (81.0-99.0); MEAN PLATELET VOLUME 9.4 fL (7.9-10.8); RED BLOOD COUNT 3.38 10^6/uL (4.20-5.40); RED CELL DISTRIBUTION WIDTH 16.3 % (12.0-15.0); WHITE BLOOD COUNT 21.1 x10^3/uL (4.8-10.8)
[2024-02-08 05:49] LABS: CALCIUM 8.9 mg/dL (8.5-10.3); CREATININE 1.2 mg/dL (0.6-1.3); POTASSIUM 3.5 mmol/L (3.5-4.5)
[2024-02-08] MEDS: LEVOTHYROXINE 112 MCG TABLET PO SCH (06:04)
[2024-02-08] MEDS ORDERED: LIPASE/PROTEASE/AMYLASE CAPSULE PO SCH (08:00)
--- NOTE | 2024-02-08 08:07 | PROVIDER PROGRESS NOTE ---
Assessment/Plan - Problem List (1) Pneumonia Qualifiers: Pneumonia type: due to unspecified organism Laterality: right Lung location: middle lobe of lung Qualified Code(s): J18.9 - Pneumonia, unspecified organism Assessment/Plan: --bilateral pneumonia, possibly gram negative. --Started on IV azithromycin and ceftriaxone. --Blood cultures pending. --She is acutely hypoxic requiring 2L via NC. Does not use oxygen at home. --Viral panel negative. --Reportedly had acute encephalopathy on admission which has improved. (2) Asthma Assessment/Plan: --Continue home inhalers. (3) GERD (gastroesophageal reflux disease) Assessment/Plan: --Continue pantoprazole. (4) CHF (congestive heart failure) Assessment/Plan: --Holding lasix and spironolactone as she is septic. --Will resume when her infection is under better control or if she shows signs and symptoms of fluid overload. (5) Chronic relapsing pancreatitis Assessment/Plan: --Continue Creon. (6) Hypothyroidism Assessment/Plan: --Continue levothyroxine. - Current Meds Current Meds: Current Medications Generic Name Dose Route Start Last Admin Trade Name Freq PRN Reason Stop Dose Admin Acetaminophen 650 mg 02/08/24 00:03 02/08/24 04:24 Acetaminophen 325 Mg Tablet PO 650 mg Q4HR PRN Administration Pain 1 to 4, or Fever Levothyroxine Sodium 112 mcg 02/08/24 07:00 02/08/24 06:04 Levothyroxine 112 Mcg Tablet PO 112 mcg QDAC RENATE Administration Oxycodone HCl 5 mg 02/08/24 01:47 02/08/24 04:24 Oxycodone 5 Mg Tablet PO 5 mg Q6HR PRN Administration Moderate Pain (Level 4-6) Sodium Chloride 10 ml 02/08/24 01:00 02/08/24 00:41 Sodium Chloride Flush 0.9% 10 Ml Syringe IVP 10 ml 0100,0900,1700 RENATE Administration - Lab Result Fish Bone Diagrams: 02/08/24 05:19 02/08/24 05:19 - Other Other Results/Comments: Dispo: Will need 2-3 additional days of inpatient treatment. - Additional Planning My Orders: My Active Orders 02/08/24 07:06 Straight Catheter Insertion [RC] ONCE 02/08/24 09:00 Azithromycin Inj [Zithromax Inj] 500 mg Sodium Chloride 0.9% [Normal Saline 0.9%] 250 ml IV DAILY cefTRIAXone [Rocephin] 2 gm Sodium Chloride 0.9% Minibag [Normal Saline 0.9% Minibag] 100 ml IV DAILY 02/09/24 05:00 BMP - BASIC METABOLIC PANEL [CHEM] DAILYLAB CBC [CBC - COMP BLD CT W/AUTO DIFF] [HEME] DAILYLAB 02/10/24 05:00 BMP - BASIC METABOLIC PANEL [CHEM] DAILYLAB CBC [CBC - COMP BLD CT W/AUTO DIFF] [HEME] DAILYLAB 02/11/24 05:00 BMP - BASIC METABOLIC PANEL [CHEM] DAILYLAB CBC [CBC - COMP BLD CT W/AUTO DIFF] [HEME] DAILYLAB 02/12/24 05:00 BMP - BASIC METABOLIC PANEL [CHEM] DAILYLAB CBC [CBC - COMP BLD CT W/AUTO DIFF] [HEME] DAILYLAB 02/13/24 05:00 BMP - BASIC METABOLIC PANEL [CHEM] DAILYLAB CBC [CBC - COMP BLD CT W/AUTO DIFF] [HEME] DAILYLAB Subjective - Subjective Patient Reports: Feeling Better, Resting Comfortably, No Complaints Objective Vital Signs: Vital Signs - 24 hr 02/07/24 02/07/24 02/07/24 20:51 21:30 21:53 Temperature 38.9 C H 37.8 C Heart Rate 78 74 Heart Rate [ Brachial] Respiratory 15 18 Rate Blood Pressure 122/48 L 124/51 L Blood Pressure [Left Brachial artery] Blood Pressure [Right Brachial artery] O2 Saturation 87 L 92 If not protocol 2 : Oxygen Flow, liters/minute 02/07/24 02/07/24 02/07/24 22:30 23:00 23:58 Temperature 37.7 C Heart Rate 68 65 69 Heart Rate [ Brachial] Respiratory 14 25 H 14 Rate Blood Pressure 117/50 L 106/49 L 106/56 L Blood Pressure [Left Brachial artery] Blood Pressure [Right Brachial artery] O2 Saturation 98 94 98 If not protocol 2 2 : Oxygen Flow, liters/minute 02/08/24 02/08/24 02/08/24 00:00 00:40 01:00 Temperature 37.2 C Heart Rate 66 Heart Rate [ 73 Brachial] Respiratory 17 18 Rate Blood Pressure 106/56 L Blood Pressure [Left Brachial artery] Blood Pressure 123/57 L [Right Brachial artery] O2 Saturation 95 95 If not protocol 2 2 2 : Oxygen Flow, liters/minute 02/08/24 02/08/24 05:00 07:37 Temperature 36.6 C 36.8 C Heart Rate Heart Rate [ 78 63 Brachial] Respiratory 18 24 Rate Blood Pressure Blood Pressure 101/46 L [Left Brachial artery] Blood Pressure 109/89 H [Right Brachial artery] O2 Saturation 92 94 If not protocol 2 2 : Oxygen Flow, liters/minute Oxygen O2 Source Nasal cannula Oxygen Flow Rate 2 I&O (Last 24 Hrs): Intake and Output Totals x24h 02/06/24 02/07/24 02/08/24 23:59 23:59 23:59 Intake Total 600 450 Output Total 10 Balance 590 450 General: Alert, Oriented x3, Cooperative, No acute distress Cardiovascular: Regular rate, Normal S1, Normal S2, No murmurs Respiratory: Chest non-tender, No respiratory distress, Breath sounds nml Abdomen: Normal bowel sounds, Soft, No tenderness, No hepatospenomegaly, No masses - Results Results: Laboratory Results WBC 21.1 x10^3/uL (4.8-10.8) H 02/08/24 05:19 RBC 3.38 10^6/uL (4.20-5.40) L 02/08/24 05:19 Hgb 9.2 g/dL (12.0-16.0) L 02/08/24 05:19 Hct 29.9 % (37.0-47.0) L 02/08/24 05:19 MCV 88.5 fL (81.0-99.0) 02/08/24 05:19 MCH 27.2 pg (27.0-31.0) 02/08/24 05:19 MCHC 30.8 g/dL (32.0-36.0) L 02/08/24 05:19 RDW 16.3 % (12.0-15.0) H 02/08/24 05:19 Plt Count 322 10^3/uL (130-450) 02/08/24 05:19 MPV 9.4 fL (7.9-10.8) 02/08/24 05:19 Neut # (Auto) Not Reportable 02/07/24 21:30 Lymph # (Auto) Not Reportable 02/07/24 21:30 [place] # (Auto) Not Reportable 02/07/24 21:30 Eos # (Auto) Not Reportable 02/07/24 21:30 Baso # (Auto) Not Reportable 02/07/24 21:30 Absolute Nucleated RBC Not Reportable 02/07/24 21:30 Total Counted 100 02/07/24 21:30 Band Neuts % (Manual) 2 % (0-10) 02/07/24 21:30 Abnorm Lymph % (Manual) 0 % 02/07/24 21:30 Nucleated RBC % Not Reportable 02/07/24 21:30 Neutrophils # (Manual) 20.3 10^3/uL (1.5-6.6) H 02/07/24 21:30 Lymphocytes # (Manual) 0.4 10^3/uL (1.5-3.5) L 02/07/24 21:30 Monocytes # (Manual) 1.6 10^3/uL (0.0-1.0) H 02/07/24 21:30 Eosinophils # (Manual) 0.0 10^3/uL (0-0.7) 02/07/24 21:30 Basophils # (Manual) 0.0 10^3/uL (0-0.1) 02/07/24 21:30 Differential Comment MANUAL DIFFERENTIAL 02/07/24 21:30 Platelet Estimate NORMAL (130-450,000) (NORMAL) 02/07/24 21:30 Platelet Morphology NORMAL APPEARANCE (NORMAL) 02/07/24 21:30 RBC Morph Micro Appear NORMAL APPEARANCE (NORMAL) 02/07/24 21:30 Sodium 138 mmol/L (135-145) 02/08/24 05:19 Potassium 3.5 mmol/L (3.5-4.5) 02/08/24 05:19 Chloride 100 mmol/L (101-111) L 02/08/24 05:19 Carbon Dioxide 32 mmol/L (21-32) 02/08/24 05:19 Anion Gap 6.0 (6-13) 02/08/24 05:19 BUN 33 mg/dL (6-20) H 02/08/24 05:19 Creatinine 1.2 mg/dL (0.6-1.3) 02/08/24 05:19 Estimated GFR (MDRD) 44 (>89) L 02/08/24 05:19 Glucose 129 mg/dL (74-104) H 02/08/24 05:19 Lactic Acid 1.0 mmol/L (0.5-2.2) 02/07/24 21:30 Calcium 8.9 mg/dL (8.5-10.3) 02/08/24 05:19 Total Bilirubin 0.9 mg/dL (0.2-1.0) 02/07/24 21:30 AST 20 IU/L (10-42) 02/07/24 21:30 ALT 20 IU/L (10-60) 02/07/24 21:30 Alkaline Phosphatase 101 IU/L (42-121) 02/07/24 21:30 B-Natriuretic Peptide 476 pg/mL (5-100) H 02/07/24 21:30 Total Protein 6.8 g/dL (6.4-8.9) 02/07/24 21:30 Albumin 3.9 g/dL (3.2-5.5) 02/07/24 21:30 Globulin 2.9 g/dL (2.1-4.2) 02/07/24 21:30 Albumin/Globulin Ratio 1.3 (1.0-2.2) 02/07/24 21:30 Lipase < 10 U/L (11-82) L 02/07/24 21:30 TSH 0.36 uIU/mL (0.34-5.60) 02/07/24 21:30 Urine Color YELLOW 02/07/24 22:12 Urine Clarity CLEAR (CLEAR) 02/07/24 22:12 Urine pH 8.0 PH (5.0-7.5) H 02/07/24 22:12 Ur Specific [place] 1.010 (1.002-1.030) 02/07/24 22:12 Urine Protein TRACE mg/dL (NEGATIVE) 02/07/24 22:12 Urine Glucose (UA) NEGATIVE mg/dL (NEGATIVE) 02/07/24 22:12 Urine Ketones NEGATIVE mg/dL (NEGATIVE) 02/07/24 22:12 Urine Occult Blood NEGATIVE (NEGATIVE) 02/07/24 22:12 Urine Nitrite NEGATIVE (NEGATIVE) 02/07/24 22:12 Urine Bilirubin NEGATIVE (NEGATIVE) 02/07/24 22:12 Urine Urobilinogen 0.2 (NORMAL) E.U./dL (NORMAL) 02/07/24 22:12 Ur Leukocyte Esterase SMALL (NEGATIVE) H 02/07/24 22:12 Urine RBC 0-5 /HPF (0-5) 02/07/24 22:12 Urine WBC 6-10 /HPF (0-5) H 02/07/24 22:12 Ur Squamous Epith Cells MANY Squamous (<= Few) H 02/07/24 22:12 Urine Bacteria Rare /HPF (None Seen) 02/07/24 22:12 Ur Microscopic Review INDICATED 02/07/24 22:12 Urine Culture Comments NOT INDICATED 02/07/24 22:12 Nasal Adenovirus (PCR) NOT DETECTED 02/07/24 20:56 Nasal B. parapertussis DNA (PCR) NOT DETECTED 02/07/24 20:56 Nasal Coronavir 229E PCR NOT DETECTED 02/07/24 20:56 Nasal Coronavir HKU1 PCR NOT DETECTED 02/07/24 20:56 Nasal Coronavir NL63 PCR NOT DETECTED 02/07/24 20:56 Nasal Coronavir OC43 PCR NOT DETECTED 02/07/24 20:56 Nasal Enterovir/Rhinovir PCR NOT DETECTED 02/07/24 20:56 Nasal Influenza B PCR NOT DETECTED 02/07/24 20:56 Nasal Influenza A PCR NOT DETECTED 02/07/24 20:56 Nasal Parainfluen 1 PCR NOT DETECTED 02/07/24 20:56 Nasal Parainfluen 2 PCR NOT DETECTED 02/07/24 20:56 Nasal Parainfluen 3 PCR NOT DETECTED 02/07/24 20:56 Nasal Parainfluen 4 PCR NOT DETECTED 02/07/24 20:56 Nasal RSV (PCR) NOT DETECTED 02/07/24 20:56 Nasal B.pertussis DNA PCR NOT DETECTED 02/07/24 20:56 Nasal C.pneumoniae (PCR) NOT DETECTED 02/07/24 20:56 Josafat Human Metapneumo PCR NOT DETECTED 02/07/24 20:56 Nasal M.pneumoniae (PCR) NOT DETECTED 02/07/24 20:56 Nasal SARS-CoV-2 (PCR) NOT DETECTED 02/07/24 20:56 - Procedures Procedures: Procedures (08/29/21) INTRODUCTION OF ANTI-INFLAM INTO PERIPH VEIN, PERC APPROACH (08/29/21) REPLACEMENT OF LEFT LENS WITH SYNTH SUB, PERC APPROACH (04/02/17) REPLACEMENT OF RIGHT LENS WITH SYNTH SUB, PERC APPROACH (03/12/17) Sepsis Event Note (H) - Evaluation Current Stage of Sepsis: Sepsis Possible source of Sepsis: positive: Pulmonary - Sepsis Criteria Sepsis Criteria: Recorded Temperature greater than 38.3C or Less than 36C, WBC count greater than 12,000 or less than 4000
[2024-02-08] MEDS: LIPASE/PROTEASE/AMYLASE CAPSULE PO SCH (08:15)
[2024-02-08] MEDS: cefTRIAXone 2 GM in SODIUM CHLORIDE 0.9% MINIBAG 100 ML IV SCH (08:15)
[2024-02-08] MEDS: ENOXAPARIN 40 MG/0.4 ML SYRINGE SUBQ SCH (08:15)
[2024-02-08] MEDS ORDERED: FUROSEMIDE 40 MG TABLET PO SCH (09:00)
[2024-02-08] MEDS: AZITHROMYCIN INJ 500 MG in SODIUM CHLORIDE 0.9% 250 ML IV SCH (09:20)
[2024-02-08] MEDS: IPRATROPIUM/ALBUTEROL 3 ML NEB INH PRN (10:22)
--- NOTE | 2024-02-08 11:39 | PHARMACY PROGRESS NOTE ---
- Best Possible Medication History Admit Date and Time: 02/08/24 0003 Processed by: Pharmacy Medications reviewed in ED?: Yes Medication History completed: Yes Patient Interview: Completed Secondary Source(s): Pharmacy records, Insurance records As the person ultimately responsible for medication therapy, providers are able to order a medication from an existing home medication list in [facility] via the "Reconcile Routine" prior to Confirmation of that medication by sales support administrator. Such practice is discouraged except when the physician, in their clinical judgment, deems that a medical need exists for a medication without regard to previous use.
[2024-02-08] MEDS: GABAPENTIN 300 MG CAPSULE PO SCH (20:30)
[2024-02-08] MEDS: ATORVASTATIN 40 MG TABLET PO SCH (20:30)
[2024-02-08] MEDS: ZINC OXIDE 20% OINT 30 GM TUBE TOP PRN (22:13)
[2024-02-09 05:10] LABS: BASOPHILS # (AUTO) 0.1 10^3/uL (0.0-0.1); BASOPHILS % (AUTO) 0.5 %; EOSINOPHILS # (AUTO) 0.5 10^3/uL (0.0-0.7); EOSINOPHILS % (AUTO) 2.8 %; HCT - HEMATOCRIT 27.2 % (37.0-47.0); HGB - HEMOGLOBIN 8.2 g/dL (12.0-16.0); LYMPHOCYTES % (AUTO) 5.3 %; MEAN CORPUSCULAR HGB CONC 30.1 g/dL (32.0-36.0); MEAN CORPUSCULAR VOLUME 89.5 fL (81.0-99.0); MEAN PLATELET VOLUME 9.3 fL (7.9-10.8); MONOCYTES # (AUTO) 1.2 10^3/uL (0.0-1.0); MONOCYTES % (AUTO) 6.3 %; NEUTROPHILS # (AUTO) 15.9 10^3/uL (1.5-6.6); NEUTROPHILS % (AUTO) 84.5 %; PLT - PLATELET COUNT 282 10^3/uL (130-450); RED BLOOD COUNT 3.04 10^6/uL (4.20-5.40); RED CELL DISTRIBUTION WIDTH 16.2 % (12.0-15.0); WHITE BLOOD COUNT 18.8 x10^3/uL (4.8-10.8)
[2024-02-09 05:43] LABS: CALCIUM 8.8 mg/dL (8.5-10.3); CREATININE 1.1 mg/dL (0.6-1.3); POTASSIUM 3.4 mmol/L (3.5-4.5)
--- NOTE | 2024-02-09 08:48 | PROVIDER PROGRESS NOTE ---
Assessment/Plan - Problem List (1) Pneumonia Qualifiers: Pneumonia type: due to unspecified organism Laterality: right Lung location: middle lobe of lung Qualified Code(s): J18.9 - Pneumonia, unspecified organism Assessment/Plan: (1) Pneumonia Qualifiers: Pneumonia type: due to unspecified organism Laterality: right Lung location: middle lobe of lung Qualified Code(s): J18.9 - Pneumonia, unspecified organism Assessment/Plan: --Bilateral pneumonia, possibly gram negative. --Started on IV azithromycin and ceftriaxone. --Blood cultures NGTD --She was acutely hypoxic requiring 2L via NC. Does not use oxygen at home. We are actively trying to wean her oxygen. --Viral panel negative. --Reportedly had acute encephalopathy on admission which has improved. (2) Asthma Assessment/Plan: --Continue home inhalers. (3) GERD (gastroesophageal reflux disease) Assessment/Plan: --Continue pantoprazole. (4) CHF (congestive heart failure) Assessment/Plan: --Holding lasix and spironolactone as her blood pressures remain low. --Will resume when her infection is under better control or if she shows signs and symptoms of fluid overload. (5) Chronic relapsing pancreatitis Assessment/Plan: --Continue Creon. --Patient has a dilaudid pain pump which gets refilled every 2.5 months. She has had it since the early . (6) Hypothyroidism Assessment/Plan: --Continue levothyroxine. Dispo: Weaning oxygen this morning. Anticipate discharge in next 24-48 hours if her WBC improves. - Current Meds Current Meds: Current Medications Generic Name Dose Route Start Last Admin Trade Name Maryann PRN Reason Stop Dose Admin Acetaminophen 650 mg 02/08/24 00:03 02/09/24 06:01 Acetaminophen 325 Mg Tablet PO 650 mg Q4HR PRN Administration Pain 1 to 4, or Fever Albuterol/Ipratropium 3 ml 02/08/24 00:08 02/08/24 10:22 Ipratropium/Albuterol 3 Ml Neb INH 3 ml Q4HR PRN Administration Wheezing Lipase/Protease/Amylase 8 cap 02/08/24 08:00 02/09/24 08:02 Lipase/Protease/Amylase Capsule PO 8 cap TIDWM RENATE Administration Atorvastatin Calcium 60 mg 02/08/24 21:00 02/08/24 20:30 Atorvastatin 40 Mg Tablet PO 60 mg HS RENATE Administration Enoxaparin Sodium 40 mg 02/08/24 09:00 02/09/24 08:07 Enoxaparin 40 Mg/0.4 Ml Syringe SUBQ Not Given DAILY RENATE Gabapentin 300 mg 02/08/24 21:00 02/08/24 20:30 Gabapentin 300 Mg Capsule PO 300 mg HS RENATE Administration Azithromycin 500 mg/ Sodium 250 mls @ 250 mls/hr 02/08/24 09:00 02/08/24 10:25 Chloride IV 02/12/24 08:59 Infused DAILY RENATE Infusion Ceftriaxone Sodium 2 gm/ 100 mls @ 200 mls/hr 02/08/24 09:00 02/09/24 08:08 Sodium Chloride IV 02/12/24 08:59 200 mls/hr DAILY RENAET Administration Levothyroxine Sodium 112 mcg 02/08/24 07:00 02/09/24 06:02 Levothyroxine 112 Mcg Tablet PO 112 mcg QDAC RENATE Administration Multi-Ingredient Ointment 1 applic 02/08/24 21:59 02/09/24 08:03 Zinc Oxide 20% Oint 30 Gm Tube TOP 1 applic PRN PRN Administration Skin Care Oxycodone HCl 10 mg 02/08/24 17:37 02/09/24 05:27 Oxycodone 5 Mg Tablet PO 10 mg Q6HR PRN Administration Moderate Pain (Level 4-6) Sodium Chloride 10 ml 02/08/24 01:00 02/09/24 08:09 Sodium Chloride Flush 0.9% 10 Ml Syringe IVP 10 ml 0100,0900,1700 RENATE Administration - Lab Result Fish Bone Diagrams: 02/09/24 05:03 02/09/24 05:03 - Additional Planning My Orders: My Active Orders 02/08/24 09:00 Azithromycin Inj [Zithromax Inj] 500 mg Sodium Chloride 0.9% [Normal Saline 0.9%] 250 ml IV DAILY cefTRIAXone [Rocephin] 2 gm Sodium Chloride 0.9% Minibag [Normal Saline 0.9% Minibag] 100 ml IV DAILY 02/08/24 10:26 RT [Nebulizer/MDI Tx.] [RC] .q4prn 02/08/24 17:37 oxyCODONE [Roxicodone] 10 mg PO Q6HR PRN 02/08/24 21:59 Zinc Oxide 20% Oint [Zinc Oxide] 1 applic TOP PRN PRN 02/09/24 05:03 HEMOGLOBIN A1c% [CHEM] DAILYLAB 02/09/24 09:00 Finasteride [Propecia] 1 mg PO DAILY Mometasone Furoate [Asmanex] 220 mcg IH BID Montelukast [Singulair] 10 mg PO DAILY Pantoprazole [Protonix] 40 mg PO DAILY Salmeterol [Serevent] 1 puffs INH BID 02/10/24 05:00 BMP - BASIC METABOLIC PANEL [CHEM] DAILYLAB CBC [CBC - COMP BLD CT W/AUTO DIFF] [HEME] DAILYLAB 02/11/24 05:00 BMP - BASIC METABOLIC PANEL [CHEM] DAILYLAB CBC [CBC - COMP BLD CT W/AUTO DIFF] [HEME] DAILYLAB 02/12/24 05:00 BMP - BASIC METABOLIC PANEL [CHEM] DAILYLAB CBC [CBC - COMP BLD CT W/AUTO DIFF] [HEME] DAILYLAB 02/13/24 05:00 BMP - BASIC METABOLIC PANEL [CHEM] DAILYLAB CBC [CBC - COMP BLD CT W/AUTO DIFF] [HEME] DAILYLAB Subjective - Subjective Patient Reports: Feeling Better, Resting Comfortably, No Complaints Objective Vital Signs: Vital Signs - 24 hr 02/08/24 02/08/24 02/08/24 10:27 12:54 13:12 Temperature 37.1 C Heart Rate 62 Heart Rate [ 63 67 Brachial] Respiratory 20 20 Rate Blood Pressure 91/42 L [Left Brachial artery] Blood Pressure 99/44 L 113/49 L [Right Brachial artery] O2 Saturation 96 If not protocol 2 2 : Oxygen Flow, liters/minute 02/08/24 02/08/24 02/08/24 15:29 19:05 20:05 Temperature 36.7 C 36.6 C Heart Rate Heart Rate [ 54 L Brachial] Respiratory 16 16 Rate Blood Pressure [Left Brachial artery] Blood Pressure 99/45 L 100/46 L [Right Brachial artery] O2 Saturation 94 95 If not protocol 2 2 2 : Oxygen Flow, liters/minute 02/08/24 02/09/24 02/09/24 22:42 00:05 05:01 Temperature 36.7 C 36.6 C Heart Rate Heart Rate [ 58 L 58 L 55 L Brachial] Respiratory 20 20 Rate Blood Pressure [Left Brachial artery] Blood Pressure 105/47 L 107/52 L 125/61 [Right Brachial artery] O2 Saturation 96 94 97 If not protocol 2 2 2 : Oxygen Flow, liters/minute 02/09/24 02/09/24 08:08 08:41 Temperature 36.8 C Heart Rate Heart Rate [ 52 L Brachial] Respiratory 16 Rate Blood Pressure [Left Brachial artery] Blood Pressure 109/52 L [Right Brachial artery] O2 Saturation 96 If not protocol 2 2 : Oxygen Flow, liters/minute Oxygen O2 Source Nasal cannula Oxygen Flow Rate 2 I&O (Last 24 Hrs): Intake and Output Totals x24h 02/07/24 02/08/24 02/09/24 23:59 23:59 23:59 Intake Total 600 2170 120 Output Total 10 1075 500 Balance 590 1095 -380 General: Alert, Oriented x3, Cooperative, No acute distress Cardiovascular: Regular rate, Normal S1, Normal S2, No murmurs Respiratory: Chest non-tender, No respiratory distress, Breath sounds nml Abdomen: Normal bowel sounds, Soft, No tenderness, No hepatospenomegaly, No masses Extremities: No edema - Results Results: Laboratory Results WBC 18.8 x10^3/uL (4.8-10.8) H 02/09/24 05:03 RBC 3.04 10^6/uL (4.20-5.40) L 02/09/24 05:03 Hgb 8.2 g/dL (12.0-16.0) L 02/09/24 05:03 Hct 27.2 % (37.0-47.0) L 02/09/24 05:03 MCV 89.5 fL (81.0-99.0) 02/09/24 05:03 MCH 27.0 pg (27.0-31.0) 02/09/24 05:03 MCHC 30.1 g/dL (32.0-36.0) L 02/09/24 05:03 RDW 16.2 % (12.0-15.0) H 02/09/24 05:03 Plt Count 282 10^3/uL (130-450) 02/09/24 05:03 MPV 9.3 fL (7.9-10.8) 02/09/24 05:03 Neut # (Auto) 15.9 10^3/uL (1.5-6.6) H 02/09/24 05:03 Lymph # (Auto) 1.0 10^3/uL (1.5-3.5) L 02/09/24 05:03 [place] # (Auto) 1.2 10^3/uL (0.0-1.0) H 02/09/24 05:03 Eos # (Auto) 0.5 10^3/uL (0.0-0.7) 02/09/24 05:03 Baso # (Auto) 0.1 10^3/uL (0.0-0.1) 02/09/24 05:03 Absolute Nucleated RBC 0.00 x10^3/uL 02/09/24 05:03 Total Counted 100 02/07/24 21:30 Band Neuts % (Manual) 2 % (0-10) 02/07/24 21:30 Abnorm Lymph % (Manual) 0 % 02/07/24 21:30 Nucleated RBC % 0.0 /100WBC 02/09/24 05:03 Neutrophils # (Manual) 20.3 10^3/uL (1.5-6.6) H 02/07/24 21:30 Lymphocytes # (Manual) 0.4 10^3/uL (1.5-3.5) L 02/07/24 21:30 Monocytes # (Manual) 1.6 10^3/uL (0.0-1.0) H 02/07/24 21:30 Eosinophils # (Manual) 0.0 10^3/uL (0-0.7) 02/07/24 21:30 Basophils # (Manual) 0.0 10^3/uL (0-0.1) 02/07/24 21:30 Differential Comment MANUAL DIFFERENTIAL 02/07/24 21:30 Platelet Estimate NORMAL (130-450,000) (NORMAL) 02/07/24 21:30 Platelet Morphology NORMAL APPEARANCE (NORMAL) 02/07/24 21:30 RBC Morph Micro Appear NORMAL APPEARANCE (NORMAL) 02/07/24 21:30 Sodium 137 mmol/L (135-145) 02/09/24 05:03 Potassium 3.4 mmol/L (3.5-4.5) L 02/09/24 05:03 Chloride 100 mmol/L (101-111) L 02/09/24 05:03 Carbon Dioxide 31 mmol/L (21-32) 02/09/24 05:03 Anion Gap 6.0 (6-13) 02/09/24 05:03 BUN 37 mg/dL (6-20) H 02/09/24 05:03 Creatinine 1.1 mg/dL (0.6-1.3) 02/09/24 05:03 Estimated GFR (MDRD) 48 (>89) L 02/09/24 05:03 Glucose 95 mg/dL (74-104) 02/09/24 05:03 Lactic Acid 1.0 mmol/L (0.5-2.2) 02/07/24 21:30 Calcium 8.8 mg/dL (8.5-10.3) 02/09/24 05:03 Total Bilirubin 0.9 mg/dL (0.2-1.0) 02/07/24 21:30 AST 20 IU/L (10-42) 02/07/24 21:30 ALT 20 IU/L (10-60) 02/07/24 21:30 Alkaline Phosphatase 101 IU/L (42-121) 02/07/24 21:30 B-Natriuretic Peptide 476 pg/mL (5-100) H 02/07/24 21:30 Total Protein 6.8 g/dL (6.4-8.9) 02/07/24 21:30 Albumin 3.9 g/dL (3.2-5.5) 02/07/24 21:30 Globulin 2.9 g/dL (2.1-4.2) 02/07/24 21:30 Albumin/Globulin Ratio 1.3 (1.0-2.2) 02/07/24 21:30 Lipase < 10 U/L (11-82) L 02/07/24 21:30 TSH 0.36 uIU/mL (0.34-5.60) 02/07/24 21:30 Urine Color YELLOW 02/07/24 22:12 Urine Clarity CLEAR (CLEAR) 02/07/24 22:12 Urine pH 8.0 PH (5.0-7.5) H 02/07/24 22:12 Ur Specific [place] 1.010 (1.002-1.030) 02/07/24 22:12 Urine Protein TRACE mg/dL (NEGATIVE) 02/07/24 22:12 Urine Glucose (UA) NEGATIVE mg/dL (NEGATIVE) 02/07/24 22:12 Urine Ketones NEGATIVE mg/dL (NEGATIVE) 02/07/24 22:12 Urine Occult Blood NEGATIVE (NEGATIVE) 02/07/24 22:12 Urine Nitrite NEGATIVE (NEGATIVE) 02/07/24 22:12 Urine Bilirubin NEGATIVE (NEGATIVE) 02/07/24 22:12 Urine Urobilinogen 0.2 (NORMAL) E.U./dL (NORMAL) 02/07/24 22:12 Ur Leukocyte Esterase SMALL (NEGATIVE) H 02/07/24 22:12 Urine RBC 0-5 /HPF (0-5) 02/07/24 22:12 Urine WBC 6-10 /HPF (0-5) H 02/07/24 22:12 Ur Squamous Epith Cells MANY Squamous (<= Few) H 02/07/24 22:12 Urine Bacteria Rare /HPF (None Seen) 02/07/24 22:12 Ur Microscopic Review INDICATED 02/07/24 22:12 Urine Culture Comments NOT INDICATED 02/07/24 22:12 Nasal Adenovirus (PCR) NOT DETECTED 02/07/24 20:56 Nasal B. parapertussis DNA (PCR) NOT DETECTED 02/07/24 20:56 Nasal Coronavir 229E PCR NOT DETECTED 02/07/24 20:56 Nasal Coronavir HKU1 PCR NOT DETECTED 02/07/24 20:56 Nasal Coronavir NL63 PCR NOT DETECTED 02/07/24 20:56 Nasal Coronavir OC43 PCR NOT DETECTED 02/07/24 20:56 Nasal Enterovir/Rhinovir PCR NOT DETECTED 02/07/24 20:56 Nasal Influenza B PCR NOT DETECTED 02/07/24 20:56 Nasal Influenza A PCR NOT DETECTED 02/07/24 20:56 Nasal Parainfluen 1 PCR NOT DETECTED 02/07/24 20:56 Nasal Parainfluen 2 PCR NOT DETECTED 02/07/24 20:56 Nasal Parainfluen 3 PCR NOT DETECTED 02/07/24 20:56 Nasal Parainfluen 4 PCR NOT DETECTED 02/07/24 20:56 Nasal RSV (PCR) NOT DETECTED 02/07/24 20:56 Nasal B.pertussis DNA PCR NOT DETECTED 02/07/24 20:56 Nasal C.pneumoniae (PCR) NOT DETECTED 02/07/24 20:56 Josafat Human Metapneumo PCR NOT DETECTED 02/07/24 20:56 Nasal M.pneumoniae (PCR) NOT DETECTED 02/07/24 20:56 Nasal SARS-CoV-2 (PCR) NOT DETECTED 02/07/24 20:56 - Procedures Procedures: Procedures (08/29/21) INTRODUCTION OF ANTI-INFLAM INTO PERIPH VEIN, PERC APPROACH (08/29/21) REPLACEMENT OF LEFT LENS WITH SYNTH SUB, PERC APPROACH (04/02/17) REPLACEMENT OF RIGHT LENS WITH SYNTH SUB, PERC APPROACH (03/12/17) Sepsis Event Note (H) - Evaluation Current Stage of Sepsis: Sepsis Possible source of Sepsis: positive: Pulmonary - Sepsis Criteria Sepsis Criteria: Recorded Temperature greater than 38.3C or Less than 36C, WBC count greater than 12,000 or less than 4000
[2024-02-09] MEDS ORDERED: MOMETASONE FUROATE 220 MCG IH SCH (09:00)
[2024-02-09] MEDS ORDERED: SALMETEROL INH SCH (09:00)
[2024-02-09] MEDS: PANTOPRAZOLE 40 MG TABLET PO SCH (09:13)
[2024-02-09] MEDS: MONTELUKAST 10 MG TABLET PO SCH (09:13)
[2024-02-09 10:18] LABS: ESTIMATED AVERAGE GLUCOSE 131 mg/dL (70-100); HEMOGLOBIN A1c% 6.2 % (4.27-6.07)
[2024-02-09] MEDS: FINASTERIDE 1 MG PO SCH (11:44)
[2024-02-09] MEDS: BUDESONIDE 0.5 MG/2 ML NEB INH SCH (16:23)
[2024-02-09] MEDS: FORMOTEROL FUMARATE NEB 20 MCG/2 ML INH SCH (16:23)
[2024-02-10 05:33] LABS: BASOPHILS # (AUTO) 0.1 10^3/uL (0.0-0.1); BASOPHILS % (AUTO) 0.4 %; EOSINOPHILS # (AUTO) 0.6 10^3/uL (0.0-0.7); EOSINOPHILS % (AUTO) 4.1 %; HGB - HEMOGLOBIN 9.3 g/dL (12.0-16.0); LYMPHOCYTES # (AUTO) 1.4 10^3/uL (1.5-3.5); LYMPHOCYTES % (AUTO) 9.5 %; MEAN CORPUSCULAR VOLUME 90.1 fL (81.0-99.0); MEAN PLATELET VOLUME 9.6 fL (7.9-10.8); MONOCYTES # (AUTO) 1.3 10^3/uL (0.0-1.0); MONOCYTES % (AUTO) 8.8 %; NEUTROPHILS # (AUTO) 11.3 10^3/uL (1.5-6.6); NEUTROPHILS % (AUTO) 76.8 %; PLT - PLATELET COUNT 350 10^3/uL (130-450); RED BLOOD COUNT 3.44 10^6/uL (4.20-5.40); RED CELL DISTRIBUTION WIDTH 15.9 % (12.0-15.0); WHITE BLOOD COUNT 14.7 x10^3/uL (4.8-10.8)
[2024-02-10 05:56] LABS: CALCIUM 9.9 mg/dL (8.5-10.3); POTASSIUM 3.4 mmol/L (3.5-4.5)
[2024-02-10] MEDS: FUROSEMIDE 40 MG TABLET PO SCH (08:08)
[2024-02-10 09:09] LABS: IRON < 10 ug/dL (50-212); TOTAL IRON BINDING CAPACITY 307 ug/dL (250-450); TRANSFERRIN 219 mg/dL (203-362)
[2024-02-10 09:15] LABS: FERRITIN 105.1 ng/mL (11.0-306.8)
--- NOTE | 2024-02-10 22:13 | PROVIDER PROGRESS NOTE ---
Assessment/Plan - Problem List (1) Pneumonia Qualifiers: Pneumonia type: due to unspecified organism Laterality: right Lung location: middle lobe of lung Qualified Code(s): J18.9 - Pneumonia, unspecified organism Assessment/Plan: Bilateral pneumonia Continue IV azithromycin and ceftriaxone. Blood cultures NGTD Continue to wean oxygen as tolerated. Viral panel negative. Reportedly had acute encephalopathy on admission which has improved. (2) Asthma Assessment/Plan: --Continue home inhalers. (3) GERD (gastroesophageal reflux disease) Assessment/Plan: --Continue pantoprazole. (4) Chronic diastolic heart failure Assessment/Plan: Continue to hold lasix and spironolactone as her blood pressures remain low. (5) Chronic relapsing pancreatitis Assessment/Plan: Continue Creon. She has a dilaudid pain pump which gets refilled every 2.5 months. She has had it since the early . (6) Hypothyroidism Assessment/Plan: --Continue levothyroxine. (7) Disposition Continue to wean oxygen as tolerated. She continues to require hospitalization due to hypoxemia and oxygen requirement. - Current Meds Current Meds: Current Medications Generic Name Dose Route Start Last Admin Trade Name Freq PRN Reason Stop Dose Admin Acetaminophen 650 mg 02/08/24 00:03 02/10/24 14:05 Acetaminophen 325 Mg Tablet PO 650 mg Q4HR PRN Administration Pain 1 to 4, or Fever Albuterol/Ipratropium 3 ml 02/08/24 00:08 02/08/24 10:22 Ipratropium/Albuterol 3 Ml Neb INH 3 ml Q4HR PRN Administration Wheezing Lipase/Protease/Amylase 8 cap 02/08/24 08:00 02/10/24 16:56 Lipase/Protease/Amylase Capsule PO 8 cap TIDWM RENATE Administration Atorvastatin Calcium 60 mg 02/08/24 21:00 02/10/24 20:45 Atorvastatin 40 Mg Tablet PO 60 mg HS RENATE Administration Budesonide 0.5 mg 02/09/24 09:00 02/10/24 19:20 Budesonide 0.5 Mg/2 Ml Neb INH 0.5 mg RTBID RENATE Administration Enoxaparin Sodium 40 mg 02/08/24 09:00 02/10/24 08:08 Enoxaparin 40 Mg/0.4 Ml Syringe SUBQ Not Given DAILY RENATE Formoterol Fumarate 20 mcg 02/09/24 09:00 02/10/24 19:20 Formoterol Fumarate Neb 20 Mcg/2 Ml INH 20 mcg RTBID RENATE Administration Furosemide 40 mg 02/10/24 09:00 02/10/24 08:08 Furosemide 40 Mg Tablet PO 40 mg DAILY RENATE Administration Gabapentin 300 mg 02/08/24 21:00 02/10/24 20:48 Gabapentin 300 Mg Capsule PO 300 mg HS RENATE Administration Azithromycin 500 mg/ Sodium 250 mls @ 250 mls/hr 02/08/24 09:00 02/10/24 10:16 Chloride IV 02/12/24 08:59 Infused DAILY RENATE Infusion Ceftriaxone Sodium 2 gm/ 100 mls @ 200 mls/hr 02/08/24 09:00 02/09/24 09:04 Sodium Chloride IV 02/12/24 08:59 Infused DAILY RENATE Infusion Levothyroxine Sodium 112 mcg 02/08/24 07:00 02/10/24 07:04 Levothyroxine 112 Mcg Tablet PO 112 mcg QDAC RENATE Administration Montelukast Sodium 10 mg 02/09/24 09:00 02/10/24 08:07 Montelukast 10 Mg Tablet PO 10 mg DAILY RENATE Administration Multi-Ingredient Ointment 1 applic 02/08/24 21:59 02/09/24 08:03 Zinc Oxide 20% Oint 30 Gm Tube TOP 1 applic PRN PRN Administration Skin Care Oxycodone HCl 10 mg 02/08/24 17:37 02/10/24 20:48 Oxycodone 5 Mg Tablet PO 10 mg Q6HR PRN Administration Moderate Pain (Level 4-6) Pantoprazole Sodium 40 mg 02/09/24 09:00 02/10/24 08:08 Pantoprazole 40 Mg Tablet PO 40 mg DAILY RENATE Administration Finasteride [ 1 each 02/09/24 09:00 02/10/24 08:07 Propecia] 1 Mg PO 1 each Tablet DAILY RENATE Administration Sodium Chloride 10 ml 02/08/24 01:00 02/10/24 16:57 Sodium Chloride Flush 0.9% 10 Ml Syringe IVP 10 ml 0100,0900,1700 RENATE Administration - Lab Result Fish Bone Diagrams: 02/10/24 05:27 02/10/24 05:27 Subjective - Subjective Patient Reports: Other (Alert. Following commands denies chest pain, shortness of breath. No other complaints at this time.) Objective Vital Signs: Vital Signs - 24 hr 02/09/24 02/10/24 02/10/24 23:30 07:38 08:00 Temperature 37.1 C 36.7 C Heart Rate 53 L Heart Rate [ 62 65 Brachial] Respiratory 20 18 18 Rate Blood Pressure 142/72 H 137/64 H [Right Brachial artery] O2 Saturation 96 93 If not protocol 2 2 0.5 : Oxygen Flow, liters/minute 02/10/24 02/10/24 02/10/24 10:45 14:01 15:35 Temperature 36.5 C Heart Rate Heart Rate [ 60 Brachial] Respiratory 18 18 18 Rate Blood Pressure 141/72 H [Right Brachial artery] O2 Saturation 95 96 98 If not protocol : Oxygen Flow, liters/minute 02/10/24 19:23 Temperature Heart Rate 55 L Heart Rate [ Brachial] Respiratory 15 Rate Blood Pressure [Right Brachial artery] O2 Saturation If not protocol : Oxygen Flow, liters/minute Oxygen O2 Source Room air Oxygen Flow Rate 2 I&O (Last 24 Hrs): Intake and Output Totals x24h 02/08/24 02/09/24 02/10/24 23:59 23:59 23:59 Intake Total 2170 3100 2730 Output Total 1075 2375 3375 Balance 1095 725 -645 General: Alert, No acute distress HEENT: Atraumatic Neck: No JVD, No thyromegaly Neuro: Alert, Non Focal Cardiovascular: Other (Positive S1-S2 no extra heart sounds.) Respiratory: Other (Good air exchange in all lung samaniego no wheezing no crackles.) Abdomen: Normal bowel sounds, Soft, No tenderness Extremities: No clubbing, No edema Skin: No rashes - Results Results: Laboratory Results WBC 14.7 x10^3/uL (4.8-10.8) H 02/10/24 05:27 RBC 3.44 10^6/uL (4.20-5.40) L 02/10/24 05:27 Hgb 9.3 g/dL (12.0-16.0) L 02/10/24 05:27 Hct 31.0 % (37.0-47.0) L 02/10/24 05:27 MCV 90.1 fL (81.0-99.0) 02/10/24 05:27 MCH 27.0 pg (27.0-31.0) 02/10/24 05:27 MCHC 30.0 g/dL (32.0-36.0) L 02/10/24 05:27 RDW 15.9 % (12.0-15.0) H 02/10/24 05:27 Plt Count 350 10^3/uL (130-450) 02/10/24 05:27 MPV 9.6 fL (7.9-10.8) 02/10/24 05:27 Neut # (Auto) 11.3 10^3/uL (1.5-6.6) H 02/10/24 05:27 Lymph # (Auto) 1.4 10^3/uL (1.5-3.5) L 02/10/24 05:27 [place] # (Auto) 1.3 10^3/uL (0.0-1.0) H 02/10/24 05:27 Eos # (Auto) 0.6 10^3/uL (0.0-0.7) 02/10/24 05:27 Baso # (Auto) 0.1 10^3/uL (0.0-0.1) 02/10/24 05:27 Absolute Nucleated RBC 0.00 x10^3/uL 02/10/24 05:27 Total Counted 100 02/07/24 21:30 Band Neuts % (Manual) 2 % (0-10) 02/07/24 21:30 Abnorm Lymph % (Manual) 0 % 02/07/24 21:30 Nucleated RBC % 0.0 /100WBC 02/10/24 05:27 Neutrophils # (Manual) 20.3 10^3/uL (1.5-6.6) H 02/07/24 21:30 Lymphocytes # (Manual) 0.4 10^3/uL (1.5-3.5) L 02/07/24 21:30 Monocytes # (Manual) 1.6 10^3/uL (0.0-1.0) H 02/07/24 21:30 Eosinophils # (Manual) 0.0 10^3/uL (0-0.7) 02/07/24 21:30 Basophils # (Manual) 0.0 10^3/uL (0-0.1) 02/07/24 21:30 Differential Comment MANUAL DIFFERENTIAL 02/07/24 21:30 Platelet Estimate NORMAL (130-450,000) (NORMAL) 02/07/24 21:30 Platelet Morphology NORMAL APPEARANCE (NORMAL) 02/07/24 21:30 RBC Morph Micro Appear NORMAL APPEARANCE (NORMAL) 02/07/24 21:30 Sodium 138 mmol/L (135-145) 02/10/24 05:27 Potassium 3.4 mmol/L (3.5-4.5) L 02/10/24 05:27 Chloride 101 mmol/L (101-111) 02/10/24 05:27 Carbon Dioxide 28 mmol/L (21-32) 02/10/24 05:27 Anion Gap 9.0 (6-13) 02/10/24 05:27 BUN 24 mg/dL (6-20) H 02/10/24 05:27 Creatinine 1.0 mg/dL (0.6-1.3) 02/10/24 05:27 Estimated GFR (MDRD) 54 (>89) L 02/10/24 05:27 Glucose 94 mg/dL (74-104) 02/10/24 05:27 Estimat Average Glucose 131 mg/dL (70-100) H 02/09/24 05:03 Hemoglobin A1c % 6.2 % (4.27-6.07) H 02/09/24 05:03 Lactic Acid 1.0 mmol/L (0.5-2.2) 02/07/24 21:30 Calcium 9.9 mg/dL (8.5-10.3) 02/10/24 05:27 Iron < 10 ug/dL (50-212) L 02/09/24 05:20 TIBC 307 ug/dL (250-450) 02/09/24 05:20 % Saturation TNP 02/09/24 05:20 Transferrin 219 mg/dL (203-362) 02/09/24 05:20 Ferritin 105.1 ng/mL (11.0-306.8) 02/09/24 05:20 Total Bilirubin 0.9 mg/dL (0.2-1.0) 02/07/24 21:30 AST 20 IU/L (10-42) 02/07/24 21:30 ALT 20 IU/L (10-60) 02/07/24 21:30 Alkaline Phosphatase 101 IU/L (42-121) 02/07/24 21:30 B-Natriuretic Peptide 476 pg/mL (5-100) H 02/07/24 21:30 Total Protein 6.8 g/dL (6.4-8.9) 02/07/24 21:30 Albumin 3.9 g/dL (3.2-5.5) 02/07/24 21:30 Globulin 2.9 g/dL (2.1-4.2) 02/07/24 21: Albumin/Globulin Ratio 1.3 (1.0-2.2) 02/07/24 21:30 Lipase < 10 U/L (11-82) L 02/07/24 21: TSH 0.36 uIU/mL (0.34-5.60) 02/07/24 21:30 Urine Color YELLOW 02/07/24 22:12 Urine Clarity CLEAR (CLEAR) 02/07/24 22:12 Urine pH 8.0 PH (5.0-7.5) H 02/07/24 22:12 Ur Specific [place] 1.010 (1.002-1.030) 02/07/24 22:12 Urine Protein TRACE mg/dL (NEGATIVE) 02/07/24 22:12 Urine Glucose (UA) NEGATIVE mg/dL (NEGATIVE) 02/07/24 22:12 Urine Ketones NEGATIVE mg/dL (NEGATIVE) 02/07/24 22:12 Urine Occult Blood NEGATIVE (NEGATIVE) 02/07/24 22:12 Urine Nitrite NEGATIVE (NEGATIVE) 02/07/24 22:12 Urine Bilirubin NEGATIVE (NEGATIVE) 02/07/24 22:12 Urine Urobilinogen 0.2 (NORMAL) E.U./dL (NORMAL) 02/07/24 22:12 Ur Leukocyte Esterase SMALL (NEGATIVE) H 02/07/24 22:12 Urine RBC 0-5 /HPF (0-5) 02/07/24 22:12 Urine WBC 6-10 /HPF (0-5) H 02/07/24 22:12 Ur Squamous Epith Cells MANY Squamous (<= Few) H 02/07/24 22:12 Urine Bacteria Rare /HPF (None Seen) 02/07/24 22:12 Ur Microscopic Review INDICATED 02/07/24 22:12 Urine Culture Comments NOT INDICATED 02/07/24 22:12 Nasal Adenovirus (PCR) NOT DETECTED 02/07/24 20:56 Nasal B. parapertussis DNA (PCR) NOT DETECTED 02/07/24 20:56 Nasal Coronavir 229E PCR NOT DETECTED 02/07/24 20:56 Nasal Coronavir HKU1 PCR NOT DETECTED 02/07/24 20:56 Nasal Coronavir NL63 PCR NOT DETECTED 02/07/24 20:56 Nasal Coronavir OC43 PCR NOT DETECTED 02/07/24 20:56 Nasal Enterovir/Rhinovir PCR NOT DETECTED 02/07/24 20:56 Nasal Influenza B PCR NOT DETECTED 02/07/24 20:56 Nasal Influenza A PCR NOT DETECTED 02/07/24 20:56 Nasal Parainfluen 1 PCR NOT DETECTED 02/07/24 20:56 Nasal Parainfluen 2 PCR NOT DETECTED 02/07/24 20:56 Nasal Parainfluen 3 PCR NOT DETECTED 02/07/24 20:56 Nasal Parainfluen 4 PCR NOT DETECTED 02/07/24 20:56 Nasal RSV (PCR) NOT DETECTED 02/07/24 20:56 Nasal B.pertussis DNA PCR NOT DETECTED 02/07/24 20:56 Nasal C.pneumoniae (PCR) NOT DETECTED 02/07/24 20:56 Josafat Human Metapneumo PCR NOT DETECTED 02/07/24 20:56 Nasal M.pneumoniae (PCR) NOT DETECTED 02/07/24 20:56 Nasal SARS-CoV-2 (PCR) NOT DETECTED 02/07/24 20:56 - Procedures Procedures: Procedures (08/29/21) INTRODUCTION OF ANTI-INFLAM INTO PERIPH VEIN, PERC APPROACH (08/29/21) REPLACEMENT OF LEFT LENS WITH SYNTH SUB, PERC APPROACH (04/02/17) REPLACEMENT OF RIGHT LENS WITH SYNTH SUB, PERC APPROACH (03/12/17) Sepsis Event Note (H) - Evaluation Current Stage of Sepsis: Sepsis Possible source of Sepsis: positive: Pulmonary - Sepsis Criteria Sepsis Criteria: Recorded Temperature greater than 38.3C or Less than 36C, WBC count greater than 12,000 or less than 4000
[2024-02-11 05:11] LABS: BASOPHILS # (AUTO) 0.1 10^3/uL (0.0-0.1); BASOPHILS % (AUTO) 0.6 %; EOSINOPHILS # (AUTO) 0.7 10^3/uL (0.0-0.7); EOSINOPHILS % (AUTO) 6.5 %; HCT - HEMATOCRIT 28.5 % (37.0-47.0); LYMPHOCYTES # (AUTO) 1.4 10^3/uL (1.5-3.5); LYMPHOCYTES % (AUTO) 13.5 %; MEAN CORPUSCULAR HEMOGLOBIN 27.4 pg (27.0-31.0); MEAN CORPUSCULAR HGB CONC 31.6 g/dL (32.0-36.0); MEAN CORPUSCULAR VOLUME 86.6 fL (81.0-99.0); MEAN PLATELET VOLUME 9.3 fL (7.9-10.8); MONOCYTES # (AUTO) 1.3 10^3/uL (0.0-1.0); MONOCYTES % (AUTO) 12.5 %; NEUTROPHILS # (AUTO) 6.6 10^3/uL (1.5-6.6); NEUTROPHILS % (AUTO) 65.4 %; PLT - PLATELET COUNT 366 10^3/uL (130-450); RED BLOOD COUNT 3.29 10^6/uL (4.20-5.40); RED CELL DISTRIBUTION WIDTH 15.5 % (12.0-15.0); WHITE BLOOD COUNT 10.1 x10^3/uL (4.8-10.8)
[2024-02-11 05:29] LABS: CALCIUM 9.5 mg/dL (8.5-10.3); CREATININE 0.9 mg/dL (0.6-1.3); POTASSIUM 3.2 mmol/L (3.5-4.5)
[2024-02-11 08:31] VITALS: BP 151/68; O2SAT 93
[2024-02-11] MEDS ORDERED: POTASSIUM CHLORIDE 20 MEQ/15 ML UDC PO SCH ×2 (09:00)
[2024-02-11] MEDS: POTASSIUM CHLORIDE 20 MEQ/15 ML UDC PO SCH (09:30)
--- NOTE | 2024-02-11 12:12 | Discharge Plan ---
Discharge Plan Problem Reviewed?: Yes Disposition: Home, Self Care Condition: Good Prescriptions: Amox/Clav 875/125 [Augmentin 875/125 Tab] 1 tablet PO Q12H 3 Days #6 tablet Diet: Low Sodium Activity Restrictions: Activity as Tolerated Shower Restrictions: No Driving Restrictions: No Assistance Devices: Walker Weight Bearing: Full Weight Instruction Topics: Pneumonia Health Concerns: History of Present Illness: Ms Arrieta is a 78 yo F with history of HTN, HLD, chronic pancreatitis, asthma. Presents to ER via EMS for weakness, confusion. Patient reports that all day today she has been feeling "out of it", weak, tired. She did not know that she had a fever. She has chronic abd pain related to history of chronic pancreatitis. She denies shortness of breath, reports cough with sputum production for the past 2 weeks, denies hemoptysis. CXR shows bilateral pneumonia. Patient has had chronic LE swelling, recent echo 02/04/24 shows normal LV/RV function. Hospital Course: Ms. Bedoya Was admitted to the hospital and treated with ceftriaxone and azithromycin intravenously for a community-acquired pneumoniaUpon admission, white blood cell count was 22.3 K and chest x-ray revealed a opacity in the right lower lobe and left lower lobe. Patient initially required treatment with oxygen for hypoxemia, however, oxygen has been weaned to off. During her hospitalization patient received 4 doses of ceftriaxone and azithromycin. She will complete a 7-day course of antibiotics with Augmentin. Blood cultures obtained during her hospitalization revealed no growth. Patient was relatively hypotensive during her hospitalization and did not receive any furosemide or atenolol. Upon discharge, her atenolol was reinitiated but her furosemide has been withheld. She was instructed to discuss reinitiating furosemide with her primary care provider. CODE STATUS upon discharge is full code. Plan of Treatment: 1. Continue all medications as prescribed. 2. Please follow-up with your primary care provider Dr. Vora and 2-4 weeks. 3. Please withhold your furosemide until you see your primary care provider or you discuss with your primary care provider. Care Goals: To complete treatment for community-acquired pneumonia and return to baseline functioning. Assessment: In summary Dinah Arrieta is a 78-year-old woman admitted with community- acquired pneumonia. She has responded well to treatment with empiric antibiotic coverage with ceftriaxone and azithromycin and will complete a 7-day course of antibiotics with Augmentin. No Smoking: If you smoke, Please STOP! Call for help. Follow-up with: Martin Parekh DO [Primary Care Provider] -
[2024-02-11] MEDS: atenoloL 25 MG TABLET PO SCH (12:13)
--- NOTE | 2024-02-11 12:50 | DISCHARGE SUMMARY ---
Discharge Summary Admit Date: 02/07/24 Discharge Date: 02/11/24 Discharging Provider: Martin Pandya MD Code Status: Attempt Resuscitation Condition at Discharge: Good Discharge Disposition: 01 Home, Self Care - DIAGNOSES Admission Diagnoses: 1. Community Acquired Pneumonia 2. Acute Metabolic Encephalopathy 3. Chronic Pancreatitis 4. Hyperlipidemia 5. Hypothroidism Discharge Diagnoses with Status of Each Condition: (1) Pneumonia (2) Asthma (3) GERD (gastroesophageal reflux disease) (4) Chronic diastolic heart failure (5) Chronic relapsing pancreatitis (6) Hypothyroidism - HPI History of Present Illness: Per Dr. Stan Amato's history and physical: Ms Arrieta is a 78 yo F with history of HTN, HLD, chronic pancreatitis, asthma. Presents to ER via EMS for weakness, confusion. Patient reports that all day today she has been feeling "out of it", weak, tired. She did not know that she had a fever. She has chronic abd pain related to history of chronic pancreatitis. She denies shortness of breath, reports cough with sputum production for the past 2 weeks, denies hemoptysis. CXR shows bilateral pneumonia. Patient has had chronic LE swelling, recent echo 02/04/24 shows normal LV/RV function. - HOSPITAL COURSE Hospital Course: Ms. Bedoya Was admitted to the hospital and treated with ceftriaxone and azithromycin intravenously for a community-acquired pneumoniaUpon admission, white blood cell count was 22.3 K and chest x-ray revealed a opacity in the right lower lobe and left lower lobe. Patient initially required treatment with oxygen for hypoxemia, however, oxygen has been weaned to off. During her hospitalization patient received 4 doses of ceftriaxone and azithromycin. She will complete a 7-day course of antibiotics with Augmentin. Blood cultures obtained during her hospitalization revealed no growth. Patient was relatively hypotensive during her hospitalization and did not receive any furosemide or atenolol. Upon discharge, her atenolol was reinitiated but her furosemide has been withheld. She was instructed to discuss reinitiating furosemide with her primary care provider. CODE STATUS upon discharge is full code. - ALLERGIES Allergies/Adverse Reactions: Allergies Allergy/AdvReac Type Severity Reaction Status Date / Time desipramine Allergy fuzzy head Verified 02/07/24 21:02 levofloxacin [From Levaquin] Allergy Rash Verified 02/07/24 21:02 lisinopril [From Zestril] Allergy unknown Verified 02/07/24 21:02 nortriptyline [Nortriptyline] Allergy fuzzy head Verified 02/07/24 21:02 tramadol HCl * [From Ultram] Allergy fuzzy head Verified 02/07/24 21:02 adhesive tape AdvReac Intermediate Itching Verified 02/07/24 21:02 - MEDICATIONS Home Medications: Ambulatory Orders Medication Instructions Recorded Confirmed Atenolol 75 mg PO DAILY 06/28/13 02/07/24 Atorvastatin Calcium [Lipitor] 60 mg PO HS 06/28/13 02/07/24 Salmeterol [Serevent] 1 puffs INH BID 06/28/13 02/07/24 Levothyroxine [Synthroid] 112 mcg PO DAILY 04/03/15 02/07/24 Lipase/Protease/Amylase [Creon Dr 4 cap PO TIDWM 08/30/21 02/07/24 12,000 Unit Capsule] Montelukast [Singulair] 10 mg PO DAILY 08/30/21 02/07/24 Multivitamin W/Minerals [Theragran 1 tab PO DAILYWM tablet 09/03/21 02/07/24 M] Fluticasone [Flonase] See Rx Instructions .ROUTE .COMPLEX 12/25/23 02/07/24 HYDROmorphone [Dilaudid] See Rx Instructions .ROUTE .COMPLEX 12/25/23 02/07/24 ONDANSETRON ODT Prepack 2 [ZOFRAN 8 mg PO QPM 12/25/23 02/07/24 ODT] Pantoprazole [Protonix] 40 mg PO DAILY 12/25/23 02/09/24 Gabapentin [Neurontin] 300 mg PO HS 02/07/24 02/07/24 Oxycodone HCl/Acetaminophen 1 each PO TID PRN 02/07/24 02/07/24 [Percocet 10-325 mg Tablet] Celecoxib 200 mg PO BID 02/08/24 02/08/24 Finasteride [Propecia] 1 mg PO DAILY 02/08/24 02/08/24 Mometasone Furoate [Asmanex] 220 mcg IH BID 02/08/24 02/08/24 Amox/Clav 875/125 [Augmentin 1 tablet PO Q12H 3 Days #6 tablet 02/11/24 875/125 Tab] - PHYSICAL EXAM AT DISCHARGE General Appearance: positive: No acute distress, Alert Eyes Bilateral: positive: No lid inflammation, Conjunctivae nml ENT: positive: ENT inspection nml Neck: positive: Nml inspection, No JVD, Trachea midline Respiratory: positive: Other (Good air exchange in all lung samanie[place] no wheezing no crackles.) Cardiovascular: positive: Other (Positive S1-S2 no extra heart sounds.) Abdomen: positive: Other (Soft. Nontender nondistended positive bowel sounds) Extremities: positive: No pedal edema Neurologic/Psychiatric: positive: Oriented x3 - LABS Result Diagrams: 02/11/24 04:59 02/11/24 04:59 - SEPSIS Current Stage of Sepsis: Sepsis Possible source of Sepsis: Pulmonary Sepsis Criteria: Recorded Temperature greater than 38.3C or Less than 36C, WBC count greater than 12,000 or less than 4000 - FOLLOW UP Follow Up: 1. Please follow-up with your primary care provider, Dr. Parekh in 2-4 weeks.
== END 2024-02-11 13:45 | disposition home or self-care (01) | DRG 871 ==
LOC: EDUNIT# → ED 20:52 → MS2 02-08 00:03
PROVIDERS: ADMIT Student in an Organized Health Care Education/Training Program; ATTEND Internal Medicine
DX: A41.9 Sepsis, unspecified organism (principal); G93.41 Metabolic encephalopathy; J18.9 Pneumonia, unspecified organism; J96.01 Acute respiratory failure with hypoxia; K86.1 Other chronic pancreatitis; I10 Essential (primary) hypertension; I50.32 Chronic diastolic (congestive) heart failure; E78.5 Hyperlipidemia, unspecified; E03.9 Hypothyroidism, unspecified; D72.829 Elevated white blood cell count, unspecified; R60.0 Localized edema; Z20.822 Contact with and (suspected) exposure to COVID-19; Z20.828 Contact with and (suspected) exposure to other viral communicable diseases; J45.909 Unspecified asthma, uncomplicated; K21.9 Gastro-esophageal reflux disease without esophagitis; I11.0 Hypertensive heart disease with heart failure; E78.00 Pure hypercholesterolemia, unspecified; G47.30 Sleep apnea, unspecified; Z79.890 Hormone replacement therapy; Z79.899 Other long term (current) drug therapy; Z88.1 Allergy status to other antibiotic agents; Z88.8 Allergy status to other drugs, medicaments and biological substances; Z88.5 Allergy status to narcotic agent; Z91.048 Other nonmedicinal substance allergy status
CPT/HCPCS: 36415; 71046; 80048; 80053; 81001; 82728; 83036; 83540; 83605; 83690; 83880; 84443; 84466; 85025; 85027; 87040; 87633; 94640; 96361; 96365; 96367; 99285; A9270; J1650; J7626; 81003; 87086

== ENCOUNTER 2024-03-11 12:07 | Outpatient (CLI) | payer MEDICARE, OTHER ==
--- NOTE | 2024-03-11 12:48 | XRAY Report ---
PROCEDURE: Chest 2V INDICATIONS: COUGH TECHNIQUE: 2 views of the chest were acquired. COMPARISON: Chest radiograph on February 07, 2024. FINDINGS: Surgical changes and devices: Surgical clips in the upper abdomen. Lungs and pleura: No pleural effusions or pneumothorax. Bilateral patchy consolidation has nearly re solved. There is linear consolidation in the middle lobe. Mediastinum: Mediastinal contours appear normal. Heart size is normal. Bones and chest wall: No suspicious bony lesions. Overlying soft tissues appear unremarkable. IMPRESSION: 1.I lateral patchy consolidation has nearly resolved suggestive of improving infection. 2.Linear consolidation in the middle lobe may reflect atelectasis/scar. Recommend a another radiograp h in 6-8 weeks to evaluate for temporal changes. Reviewed by: Asad Fishman MD on 03/11/2024 12:47 PM PDT Approved by: Asad Fishman MD on 03/11/2024 12:47 PM PDT Station ID: [id number]
== END 2024-03-11 12:08 | disposition home or self-care (01) ==
LOC: DI 12:07
PROVIDERS: ATTEND Student in an Organized Health Care Education/Training Program
DX: R05.9 Cough, unspecified (principal); R91.8 Other nonspecific abnormal finding of lung field

== ENCOUNTER 2024-04-20 15:41 | Outpatient (CLI) | payer MEDICARE, OTHER ==
--- NOTE | 2024-04-20 23:53 | XRAY Report ---
PROCEDURE: Chest 2V INDICATIONS: COUGH TECHNIQUE: 2 views of the chest were acquired. COMPARISON: 5 03/11/2024 FINDINGS: Surgical changes and devices: Cholecystectomy clips. Surgical clips at the GE junction. Lungs and pleura: Diffuse bilateral interstitial and bronchial wall thickening.. Asymmetric right he midiaphragm elevation. No dense consolidation, effusion, or pneumothorax. Mediastinum: Mediastinal contours appear normal. Heart size is normal. Bones and chest wall: No suspicious bony lesions. Overlying soft tissues appear unremarkable. IMPRESSION: New diffuse interstitial and bronchial wall thickening suggesting bronchitis and/or viral pneumonitis . Reviewed by: Karen Manjarrez MD on 04/20/2024 11:52 PM PDT Approved by: Karen Manjarrez MD on 04/20/2024 11:52 PM PDT Station ID: [id number]
== END 2024-04-20 15:42 | disposition home or self-care (01) ==
LOC: DI 15:41
PROVIDERS: ATTEND Student in an Organized Health Care Education/Training Program
DX: R05.9 Cough, unspecified (principal); R91.8 Other nonspecific abnormal finding of lung field

== ENCOUNTER 2024-07-02 11:36 | Outpatient (CLI) | payer MEDICARE, OTHER ==
--- NOTE | 2024-07-05 12:03 | XRAY Report ---
PROCEDURE: Chest 2V INDICATIONS: LEFT SIDE CHEST WALL PAIN TECHNIQUE: 2 views of the chest were acquired. COMPARISON: 04/20/2024 FINDINGS: Surgical changes and devices: None. Lungs and pleura: No pleural effusions or pneumothorax. Lungs are clear. Mediastinum: Mediastinal contours appear normal. Heart size is normal. Bones and chest wall: No suspicious bony lesions. Overlying soft tissues appear unremarkable. IMPRESSION: No acute cardiopulmonary process. Reviewed by: Lokesh Olmedo MD on 07/05/2024 12:01 PM PDT Approved by: Lokesh Olmedo MD on 07/05/2024 12:01 PM PDT Station ID: [id number]
== END 2024-07-02 11:37 | disposition home or self-care (01) ==
LOC: DI 11:36
PROVIDERS: ATTEND Student in an Organized Health Care Education/Training Program
DX: R07.89 Other chest pain (principal)